=== PATIENT | female | born 1940 | race Caucasian/White ===

== ENCOUNTER → 2017-05-09 | Outpatient (CLI) | payer MEDICARE ==
--- NOTE | 2017-05-09 16:27 | REPMRS ---
Patient History The patient states she has not had a clinical breast exam in over a year. Patient is postmenopausal.Patient has had a 10-15 pound weight loss. Family history of ovarian cancer in paternal aunt at age 60, unknown cancer in paternal cousin at age 25, and breast cancer in daughter at age 45. Digital Mammo Screening Bilat: May 09, 2017 - Exam #: [id number] Bilateral CC and MLO view(s) were taken. Technologist: Didi Laureano Technologist Prior study comparison: May 11, 2016, bilateral digital mammo screening bilat performed at [facility]. July 23, 2014, bilateral bilat screen digital mammo, performed at [facility] ([facility]). FINDINGS: There are scattered fibroglandular densities. There has been no change in the appearance of the mammogram from the prior studies. There is a mild amount of residual fibroglandular tissue which is fairly symmetric. There is no interval development of dominant mass, architectural distortion, or clustered microcalcification suggestive of malignancy. ASSESSMENT: BI-RADS/ACR category 1 mammogram. Negative. Recommendation Routine screening mammogram in 1 year (for women over age 40). This mammogram was interpreted with the aid of an FDA-approved computer-aided dectection system. Electronically Signed By: Beau Ruiz MD 05/09/17 [id number]
== END ==
LOC: M RAD 14:39
PROVIDERS: ATTEND Nurse Practitioner Adult Health
DX: Z12.31 Encounter for screening mammogram for malignant neoplasm of breast (principal)

== ENCOUNTER → 2018-01-02 | Outpatient (REF) | payer MEDICARE ==
[2018-01-02 16:26] LABS: VITAMIN B12 LEVEL 323 PG/ML (247-911)
== END ==
LOC: M LAB REF 15:23
DX: R41.81 Age-related cognitive decline (principal)
CPT/HCPCS: 82607

== ENCOUNTER → 2018-06-06 | Outpatient (CLI) | payer MEDICARE | LOC: M RAD 07:59 | DX: Z12.31 Encounter for screening mammogram for malignant neoplasm of breast (principal) | CPT/HCPCS: 77067 ==

== ENCOUNTER 2018-09-11 08:38 | Emergency (ER) | payer MEDICARE ==
[2018-09-11 09:48] LABS: BEDSIDE GLUCOSE 76 MG/DL (83-110)
[2018-09-11 09:59] LABS: BASO % 0.3 % (0.0-1.0); EOS # 0.1 10^3/uL (0.0-0.50); EOS % 1.3 % (0.0-3.0); HEMATOCRIT 38.5 % (36.0-47.0); HEMOGLOBIN 12.7 g/dl (12.0-15.5); IMMATURE GRANULOCYTE % 0.3 % (0-3.0); LYMPH % 26.6 % (24.0-44.0); MEAN CORPUSCULAR HEMOGLOBIN 31.2 pg (27.0-33.0); MEAN CORPUSCULAR VOLUME 94.6 fl (80.0-96.0); MONO # 0.7 10^3/uL (0.0-0.8); MONO % 8.6 % (0.0-5.0); NEUTROPHILS # 4.8 10^3/uL (1.8-7.7); NEUTROPHILS % 62.9 % (36.0-66.0); PLATELET COUNT, AUTOMATED 242 10^3/uL (150-450); RED BLOOD COUNT 4.07 10^6/uL (4.00-5.40); RED CELL DISTRIBUTION WIDTH 13.3 % (11.5-14.5); WHITE BLOOD COUNT 7.6 10^3/uL (4.0-10.0)
[2018-09-11 10:11] LABS: INR 0.92; PROTHROMBIN TIME 12.5 SECONDS (12.1-14.4)
[2018-09-11 10:12] LABS: PARTIAL THROMBOPLASTIN TIME 31.7 SECONDS (25.4-37.6)
[2018-09-11 10:31] LABS: ANION GAP 4 MEQ/L (8-16); BLOOD UREA NITROGEN 9 MG/DL (7-18); CALCIUM LEVEL 8.5 MG/DL (8.8-10.2); CARBON DIOXIDE LEVEL 30 MEQ/L (21-32); CHLORIDE LEVEL 106 MEQ/L (98-107); CPK CREATINE PHOSPHOKINASE 125 U/L (26-192); CREATININE FOR GFR 0.47 MG/DL (0.55-1.30); GLOMERULAR FILTRATION RATE > 60.0 (>39); GLUCOSE, FASTING 82 MG/DL (70-100); MB/CK RELATIVE INDEX 1.92 (< OR =4); POTASSIUM SERUM 4.2 MEQ/L (3.5-5.1); SODIUM LEVEL 140 MEQ/L (136-145); TROPONIN I < 0.02 NG/ML (< 0.10)
[2018-09-11 11:09] LABS: GOLD SPEC TUBE RECIEVED
== END 2018-09-11 10:24 | disposition short-term general hospital (02) ==
LOC: M ED 08:38
DX: I63.9 Cerebral infarction, unspecified (principal); R27.0 Ataxia, unspecified; I10 Essential (primary) hypertension; K21.9 Gastro-esophageal reflux disease without esophagitis; Z79.899 Other long term (current) drug therapy
CPT/HCPCS: 71045

== ENCOUNTER 2019-01-24 13:44 | Day surgery (SDC) | payer MEDICARE ==
[~2019-01-24] VITALS: Ht 152.4 cm; Wt 71.7 kg
[~2019-01-24 13:44] MED LIST: ASPI81TA85 PO; ATOR40TA75 PO; DONE5TAB64 PO; DONEPEZIL PO; LEVO50TA5 PO; LISI-542 PO; OMEP20CA3 PO; SIMV40TA2 PO; VITMTA PO
[2019-01-24] MEDS ORDERED: LIDOCAINE VISCOUS 2% SOLN 15ML UDC As Ordered ONE (14:15)
[2019-01-24] MEDS ORDERED: MIDAZOLAM INJ 2 MG/2 ML VIAL (J2250) As Ordered ONE (14:56)
[2019-01-24 16:04] VITALS: BP 103/75
--- NOTE | 2019-01-24 22:35 | T-ECHO ---
DATE OF PROCEDURE: 01/24/2019 REFERRING PHYSICIAN: Nan Camarillo MD PREPROCEDURE DIAGNOSIS: Cryptogenic stroke. POSTPROCEDURE DIAGNOSIS: Cryptogenic stroke, patent foramen ovale. FINDINGS: Patent foramen ovale. PROCEDURE: Transesophageal echocardiogram with bubble study. SURGEON: Constantino Muniz MD AIRLINE LOUNGE RECEPTIONIST: None. CONSCIOUS SEDATION: IV conscious sedation: Midazolam 4 mg IV COMPLICATIONS: None. PROCEDURE DESCRIPTION: Rhythm was sinus. The patient received viscus lidocaine to gargle and then swallow. She received a total of 4 mg of Midazolam IV for conscious sedation. Esophageal intubation was accomplished without difficulty using a [employer]'s 3D transesophageal echocardiogram probe. The region of the intra-atrial septum was anatomically suspicious for presence of a patent foramen ovale. No color flow Doppler was seen traversing the atrial septum. No intra-atrial septal aneurysm. A total of three bubble studies was performed. The first bubble study was performed using 1 mL of the patient's own blood mixed with a mL of air and 8 mL of injectable saline. The other two bubbles studies that followed were performed with 9 mL of injectable normal saline and 1 mL of air. Each of the bubble studies was performed by swishing the contents of one 10 mL into another 10 mL syringe interconnected by a three-way stopcock to create bubbles back and forth. With each of the bubble studies Valsalva maneuver release was performed. On the third bubble study, I also had the patient cough several times. The third bubble study, during coughing was able to demonstrate abrupt opening of the patent foramen ovale with a mild to moderate amount of saline bubble contrast to shunt transiently from the right atrium to the left atrium via the patent foramen ovale (PFO). Atrial connections to the left atrium pulmonary veins was anatomically normal. No mass or thrombi were seen within the atria or their appendages. The left and right ventricles appeared normal in size and systolic function. Left ventricle ejection fraction was 65% by visual estimate. No regional wall motion abnormalities of the left ventricle. No pericardial effusion. The tricuspid, pulmonic and mitral valves were structurally and functionally normal. Mild mitral regurgitation was present and within normal limits. Aortic valve was three-cuspid and displayed mild focal thickening and focal calcific deposits. No aortic regurgitation. Distal aortic arch and descending thoracic aorta showed mild atherosclerotic plaque/atheroma. CONCLUSIONS: 1. Small patent foramen ovale with demonstration of mild to moderate bubble contrast shunting from right atrium to left atrium via the PFO during cough maneuver. 2. Normal left ventricle size and systolic function. 3. No masses or thrombi within the atria or their appendages. 4. Mild aortic valve sclerosis of a three-cuspid aortic valve. No aortic regurgitation. 5. Mild atherosclerosis/atheroma involving the distal aortic arch and descending thoracic aorta. RECOMMENDATIONS: Consider closure of the PFO with a PFO closure device. Further management to be decided by this patient's attending tire changer aircraft, Dr. Mauricio Reis.
== END 2019-01-24 16:07 | disposition home or self-care (01) ==
LOC: M SDC 13:44
PROVIDERS: ATTEND Internal Medicine Cardiovascular Disease
DX: I63.9 Cerebral infarction, unspecified (principal); R94.31 Abnormal electrocardiogram [ECG] [EKG]; I10 Essential (primary) hypertension; R01.1 Cardiac murmur, unspecified; E78.5 Hyperlipidemia, unspecified; K21.9 Gastro-esophageal reflux disease without esophagitis; M54.5 Low back pain; I25.2 Old myocardial infarction; E66.9 Obesity, unspecified; E03.9 Hypothyroidism, unspecified; Z79.82 Long term (current) use of aspirin; Z79.899 Other long term (current) drug therapy
CPT/HCPCS: 93312; 93320; 93325; J2250

== ENCOUNTER 2019-07-11 16:14 | Emergency (ER) | payer MEDICARE ==
[~2019-07-11] VITALS: Ht 162.6 cm; Wt 73.5 kg
[~2019-07-11 16:14] MED LIST changes: -OMEP20CA3 PO; +OMEP20CA4 PO
[2019-07-11 16:53] LABS: BASO % 0.2 % (0.0-1.0); EOS # 0.1 10^3/uL (0.0-0.50); EOS % 1.1 % (0.0-3.0); HEMATOCRIT 37.5 % (36.0-47.0); HEMOGLOBIN 12.6 g/dl (12.0-15.5); MEAN CORPUSCULAR HEMOGLOBIN 30.9 pg (27.0-33.0); MEAN CORPUSCULAR HGB CONC 33.6 g/dl (32.0-36.5); MEAN CORPUSCULAR VOLUME 91.9 fl (80.0-96.0); MONO # 0.7 10^3/uL (0.0-0.8); MONO % 7.2 % (0.0-5.0); NEUTROPHILS # 7.3 10^3/uL (1.8-7.7); NEUTROPHILS % 71.2 % (36.0-66.0); PLATELET COUNT, AUTOMATED 228 10^3/uL (150-450); RED BLOOD COUNT 4.08 10^6/uL (4.00-5.40); WHITE BLOOD COUNT 10.2 10^3/uL (4.0-10.0)
[2019-07-11 17:01] LABS: INR 1.07; PROTHROMBIN TIME 13.6 SECONDS (11.8-14.0)
[2019-07-11 17:02] LABS: PARTIAL THROMBOPLASTIN TIME 35.2 SECONDS (25.0-38.4)
[2019-07-11] MEDS ORDERED: XARE10TA PO (17:05)
[2019-07-11 17:18] LABS: BLOOD UREA NITROGEN 13 MG/DL (7-18); CALCIUM LEVEL 8.5 MG/DL (8.8-10.2); CARBON DIOXIDE LEVEL 30 MEQ/L (21-32); CHLORIDE LEVEL 103 MEQ/L (98-107); CK-MB VALUE MASS 1.8 NG/ML (<3.6); CPK CREATINE PHOSPHOKINASE 77 U/L (26-192); CREATININE FOR GFR 0.68 MG/DL (0.55-1.30); GLOMERULAR FILTRATION RATE > 60.0 (>39); GLUCOSE, FASTING 103 MG/DL (70-100); MB/CK RELATIVE INDEX 2.34 (< OR =4); POTASSIUM SERUM 3.8 MEQ/L (3.5-5.1); SODIUM LEVEL 139 MEQ/L (136-145); TROPONIN I < 0.02 NG/ML (< 0.10)
--- NOTE | 2019-07-11 17:34 | REP ---
REASON: Stroke like symptoms. COMPARISON: 09/11/2018. There is no significant change from the prior exam. The ventricles and sulci are stable. Scattered lucencies are seen throughout the deep cerebral white matter of the rojas radiata and centrum semi-ovale bilaterally. There are no extra axial collections. There is no shift in the midline structures. There is no evidence of an acute intracranial hemorrhagic or nonhemorrhagic event. There is no evidence of a skull fracture. The imaged paranasal sinuses and mastoid air cells are unchanged and remaining clear. IMPRESSION:No significant change from the prior exam. Chronic changes as described above. No evidence of acute disease. Electronically Signed by Geovany Navarrete DO 07/22/2019 10:06 A
--- NOTE | 2019-07-11 17:40 | REP ---
CHEST, PORTABLE: AP portable view of the chest is performed and compared to prior study of 09/11/2018. There is mild to moderate elevation of the right hemidiaphragm again noted. There is no acute infiltrate. Cardiac silhouette is upper limits or normal. There is mild calcification and tortuosity of the thoracic aorta. There is a hiatal hernia. Mediastinal silhouette is unchanged. IMPRESSION: No acute infiltrate. Electronically Signed by Beau Ruiz MD 07/13/2019 11:10 P
[2019-07-11 20:00] VITALS: BP 120/89
[2019-07-11 23:41] LABS: FREE T4 0.93 NG/DL (0.76-1.46)
--- NOTE | 2019-07-11 23:53 | ECGEPIP ---
[facility] - ED Test Date: 2019-07-11 Pat Name: LASHAWN MCDANIELS Department: Room: - Gender: Female Banquet Set Up Person: JOVITA : 1940 Requested By: CONSTANTINO Barrientos Order Number: [id number] Reading MD: Constantino Pollard Measurements Intervals [place] Rate: 115 P: [place]: 0 QRS: -1 QRSD: 89 T: 7 QT: 310 QTc: 430 Interpretive Statements Uncertain supraventricular rhythm, suspect atrial fibrillation with RVR LOW QRS VOLTAGE IN EXTREMITY LEADS Nonspecific T wave abnormality Electronically Signed on 07-11-2019 23:52:58 EDT by Constantino Pollard
== END 2019-07-11 20:13 | disposition home or self-care (01) ==
LOC: M ED 16:14
DX: G62.9 Polyneuropathy, unspecified (principal); I48.91 Unspecified atrial fibrillation; Z86.73 Personal history of transient ischemic attack (TIA), and cerebral infarction without residual deficits; E78.5 Hyperlipidemia, unspecified; Z79.899 Other long term (current) drug therapy

== ENCOUNTER → 2019-11-25 | Outpatient (REF) | payer MEDICARE ==
[~2019-11-25] MED LIST changes: +OMEP1CAP73 PO; -OMEP20CA4 PO; -SIMV40TA2 PO; +SIMV40TA20 PO; +XARE10TA PO
[2019-11-25 12:31] LABS: HEMATOCRIT 32.5 % (36.0-47.0); HEMOGLOBIN 10.6 g/dl (12.0-15.5); MEAN CORPUSCULAR HEMOGLOBIN 29.4 pg (27.0-33.0); MEAN CORPUSCULAR HGB CONC 32.6 g/dl (32.0-36.5); PLATELET COUNT, AUTOMATED 432 10^3/uL (150-450); RED BLOOD COUNT 3.61 10^6/uL (4.00-5.40)
[2019-11-25 13:42] LABS: ALBUMIN 2.2 GM/DL (3.2-5.2); ALT/SGPT 39 U/L (12-78); BILIRUBIN,TOTAL 0.6 MG/DL (0.2-1.0); BLOOD UREA NITROGEN 9 MG/DL (7-18); CALCIUM LEVEL 8.6 MG/DL (8.8-10.2); CARBON DIOXIDE LEVEL 32 MEQ/L (21-32); CHLORIDE LEVEL 97 MEQ/L (98-107); CREATININE FOR GFR 0.49 MG/DL (0.55-1.30); GLOMERULAR FILTRATION RATE > 60.0 (>39); GLUCOSE, FASTING 85 MG/DL (70-100); POTASSIUM SERUM 3.5 MEQ/L (3.5-5.1); SODIUM LEVEL 135 MEQ/L (136-145); TOTAL PROTEIN 6.2 GM/DL (6.4-8.2)
== END ==
LOC: M SFHCPLAZ 09:12
PROVIDERS: ATTEND Nurse Practitioner Adult Health
DX: R19.7 Diarrhea, unspecified (principal); E03.9 Hypothyroidism, unspecified
CPT/HCPCS: 36415; 80053; 84443; 85027; G0463

== ENCOUNTER → 2019-11-26 | Outpatient (REF) | payer MEDICARE ==
[~2019-11-26] MED LIST changes: +OMEP-172 PO; -OMEP1CAP73 PO
== END ==
LOC: M SFHCPLAZ 17:28
PROVIDERS: ATTEND Nurse Practitioner Adult Health
DX: R19.7 Diarrhea, unspecified (principal)

== ENCOUNTER 2020-03-16 10:54 | Inpatient (IN) | payer MEDICARE ==
[~2020-03-16] VITALS: Ht 157.5 cm; Wt 71.7 kg
[~2020-03-16 10:54] MED LIST changes: -OMEP-172 PO; +OMEP1CAP73 PO
[2020-03-16] MEDS ORDERED: SERT50TA29 PO (11:44)
[2020-03-16] MEDS ORDERED: ELIQ5TAB PO (11:44)
[2020-03-16] MEDS ORDERED: ATEN25TA PO (11:44)
--- NOTE | 2020-03-16 12:00 | REP ---
CT study of the cervical spine without contrast: History: Injury in a fall. Technique: Helical scanning is acquired and overlapping 2 mm high resolution axial images were generated and reviewed at bone and soft tissue window settings. Coronal and sagittal multiplanar re-formations images are generated. CT findings: There is no evidence of cervical spine element fracture. No skull base fracture is seen. Cervical vertebral body heights are preserved. Alignment is normal. Facet joints are normally aligned bilaterally at each cervical level on multiplanar re-formations images. There is no evidence of intraspinal or paraspinal hematoma. No extra vertebral abnormality is seen. There is straightening of the normal cervical lordosis. Degenerative disc changes are noted most pronounced at C5-6 and C6-7 but also to a lesser degree at C4-5 and C3-4. There is some degenerative disc calcification at these levels. Mild osteoarthritic facet hypertrophy and joint space narrowing is seen bilaterally in the cervical facet joints. There is a dextroconvex curvature. Impression: Degenerative spondylosis changes. Straightening and dextroconvex curvature noted. Otherwise negative CT study of the cervical spine without contrast. No fracture seen. Electronically Signed by Ramy Mcneal MD 03/16/2020 11:52 A
--- NOTE | 2020-03-16 12:43 | REP ---
CT BRAIN WITHOUT CONTRAST: HISTORY: Injury in a fall. COMPARISON STUDY: July 11, 2019. FINDINGS: Digital preliminary cotton weigher operator radiographs are unremarkable. Bone window settings demonstrate an intact bony calvarium. Visualized paranasal sinuses are clear. No intraorbital abnormality is appreciated. On soft tissue window settings, there is mild to moderate generalized volume loss again noted. There is evidence of an old right cerebellar infarct superiorly unchanged. No acute cortical infarction is seen. There is no evidence of intracranial hemorrhage. No mass, extra-axial fluid collection or midline shift is seen. IMPRESSION: No acute intracranial abnormality. Generalized volume loss. 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 Otherwise negative. Electronically Signed by Ramy Mcneal MD 03/16/2020 01:17 P
[2020-03-16 12:57] LABS: HEMATOCRIT 38.6 % (36.0-47.0); HEMOGLOBIN 12.6 g/dl (12.0-15.5); MEAN CORPUSCULAR HEMOGLOBIN 27.1 pg (27.0-33.0); MEAN CORPUSCULAR HGB CONC 32.6 g/dl (32.0-36.5); PLATELET COUNT, AUTOMATED 437 10^3/uL (150-450); RED BLOOD COUNT 4.65 10^6/uL (4.00-5.40); WHITE BLOOD COUNT 24.1 10^3/uL (4.0-10.0)
[2020-03-16 13:21] LABS: BLOOD UREA NITROGEN 15 MG/DL (7-18); CALCIUM LEVEL 8.6 MG/DL (8.8-10.2); CARBON DIOXIDE LEVEL 25 MEQ/L (21-32); CHLORIDE LEVEL 96 MEQ/L (98-107); CREATININE FOR GFR 0.39 MG/DL (0.55-1.30); GLOMERULAR FILTRATION RATE > 60.0 (>39); GLUCOSE, FASTING 100 MG/DL (70-100); POTASSIUM SERUM 2.9 MEQ/L (3.5-5.1); SODIUM LEVEL 129 MEQ/L (136-145)
[2020-03-16] MEDS ORDERED: POTASSIUM CHLORIDE 10 MEQ SR TABLET PO ONE ×2 (13:30→16:45)
[2020-03-16] MEDS ORDERED: NS 500 ML IV ONE (13:45)
[2020-03-16] MEDS: KCL 10MEQ/100ML SWI (KRUN) 10 MEQ in IV 1 EA IV SCH ×3 (13:46→17:00)
[2020-03-16 13:57] LABS: ALBUMIN 2.2 GM/DL (3.2-5.2); ALT/SGPT 30 U/L (12-78); BILIRUBIN,DIRECT 0.4 MG/DL (0.0-0.2); BILIRUBIN,TOTAL 0.7 MG/DL (0.2-1.0); FREE T4 1.27 NG/DL (0.76-1.46); TOTAL PROTEIN 7.5 GM/DL (6.4-8.2)
[2020-03-16] MEDS ORDERED: ISOVUE-370 76% 100ML VIAL As Ordered ONE (14:26)
[2020-03-16] MEDS ORDERED: PIPERACILLIN/TAZOBACTAM SOD 3.375 GM in D5W MINI-BAG PLUS 50 ML IV ONE (15:15)
--- NOTE | 2020-03-16 15:18 | REP ---
CHEST, SINGLE VIEW: Single view of the chest is performed and compared to a prior study of 07/11/2019. No acute infiltrate is seen. There is again elevation of the right hemidiaphragm. Patient is rotated toward the right. Cardiac silhouette is prominent. Visualized osseous structures demonstrate no definite fracture. IMPRESSION: No evidence of acute pulmonary disease. Electronically Signed by Beau Ruiz MD 03/16/2020 03:24 P
[2020-03-16] MEDS ORDERED: DONE10TA90 PO (15:25)
[2020-03-16] MEDS ORDERED: NS 1,000 ML IV ONE (15:30)
[2020-03-16 15:36] LABS: NT-PRO BNP 2523 PG/ML (<450)
[2020-03-16] MEDS ORDERED: ONDANSETRON 4MG/2ML VIAL IV PRN (16:00)
[2020-03-16] MEDS ORDERED: MORPHINE 2 MG/ML 1ML VIAL (J2270) IV PRN ×2 (16:00)
[2020-03-16] MEDS ORDERED: LR 1,000 ML IV SCH (16:00)
[2020-03-16] MEDS ORDERED: metroNIDAZOLE 500 MG in IV 1 EA IV ONE (16:30)
[2020-03-16] MEDS ORDERED: CIPROFLOXACIN 400 MG in IV 1 EA IV ONE (16:30)
--- NOTE | 2020-03-16 16:30 | REP ---
CT ABDOMEN/PELVIS WITH IV CONTRAST: TECHNIQUE: Axial contrast enhanced images from the lung bases to the pubic symphysis using 100 mL Isovue-370 intravenous contrast material with multiplanar reformations. In the visualized lung bases, there are dependent atelectatic changes. There is a small left pleural effusion. There is a moderate to large hiatal hernia. The liver appears unremarkable. Gallbladder is moderately distended with no definite intraluminal calculus. Spleen is normal in size with no intrinsic abnormality. There is mild adrenal gland thickening bilaterally. Pancreas demonstrates no mass. There are cysts of each kidney with no hydronephrosis. There is no abdominal aortic aneurysm. There is no adenopathy. Scattered free air is seen in the upper abdomen and in the pelvis. There is mild free fluid in the pelvis. Diffuse colonic diverticulosis is noted. There is diffuse thickening of the sigmoid colon, compatible with diverticulitis. There is adjacent phlegmonous change with ill-defined air and fluid in the right pelvis extending superiorly. There is a right lower quadrant air-fluid collection, consistent with an abscess having a diameter of approximately 9.5 cm. Large calcified mass anteriorly in the pelvis measures about 5 cm in diameter and probably represents a calcified uterine fibroid. Metallic prosthesis is noted of the right hip. There are degenerative changes of the lumbar spine. IMPRESSION: Small left pleural effusion. Scattered free air in the abdomen and pelvis. There appears to be perforated diverticulitis of the sigmoid with adjacent extraluminal air and fluid and phlegmonous change in the right pelvis extending superiorly. There is a right lower quadrant abscess measuring 9.5 cm in diameter. Findings were conveyed to Dr. Cunningham in the ER at the time of the exam. Moderate to large hiatal hernia. Moderately distended gallbladder. Calcified uterine fibroid. Electronically Signed by Beau Ruiz MD 03/17/2020 09:34 A
--- NOTE | 2020-03-16 17:32 | HPEPDOC ---
[facility] Medical History & Physical Date of Admission Mar 16, 2020 Date of Service: Mar 16, 2020 Primary Care Physician: Lynette Wilcox Attending Physician: NATI PEREZ MD History and Physical PRIMARY CARE PROVIDER: Lynette Wilcox ATTENDING: Dr. Nati Perez CHIEF COMPLAINT: LOC HISTORY OF PRESENT ILLNESS: Patient is a 80 year old female presenting with chief complaint of loss of consciousness. Patient was found by her daughter this morning after finding her on the ground. When she found her she was conscious and did not remember what happened but thinks she did lose consciousness and hit her head on the ground. She states she has had loose stools since last , but thinks there have only been 2/day with decreased PO intake. In the ED she was found to be tachycardic with 2+ pitting edema, WBC count of 24, hyponatremia, hypokalemia, lactic acidosis, and an elevated BNP. CT head, C- spine, CXR were negative, with CTabd/pelvis demonstrating microperforation and RLQ abdominal abscess. Patient received 1x zosyn and 1.5 liters of fluid resuscitation. 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 FAMILY HISTORY: Patient does not recall. ALLERGIES: Please see below. REVIEW OF SYSTEMS: GENERAL: Denies fevers, chills, recent unexpected weight change, night sweats, hemoptysis HEENT: Denies headache, dizziness, vision changes, hearing loss, sore throat CARDIOVASCULAR: Denies chest pain, palpitations, orthopnea RESPIRATORY: Denies shortness of breath, wheezing, cough GASTROINTESTINAL: denies nausea, vomiting, abdominal pain, constipation, bloody stool. Admits to loose stool since last . GENITOURINARY: Denies dysuria,urinary urgency, hematuria. MUSCULOSKELETAL: Denies muscle/joint pain, weakness, stiffness NEUROLOGICAL: Denies any numbness/tingling, focal weakness, or syncope HOME MEDICATIONS: Please see below. PHYSICAL EXAMINATION: Vitals: (see below) General: Pale appearing female in no acute distress, laying comfortably in bed. HEENT: Normocephalic, atraumatic. EOMI. No scleral icterus. dry mucous membranes. No pharyngeal erythema or uvular deviation. Neck: No JVD, lymphadenopathy, or thyromegaly. Cardiac: RRR, Normal S1 and S2, No murmurs, gallops, rubs. Pulm: Clear to auscultation b/l. Symmetric thorax. No wheezing, crackles, rhonchi Abd: Bowel Sounds present. Abdomen is soft, non-tender, non-distended. No guarding, rebound tenderness, or rigidity. No hepatosplenomegaly. No masses or eccymosis. Ext: 2+ pitting edema up to knees in bilateral LE, no cyanosis Vascular: Capillary refill ~3seconds Neuro: No focal neuro deficits. AOx3 LABORATORY DATA: See below. IMAGIN03/16/[address]: No acute intracranial abnormality. Generalized volume loss. 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 Otherwise negative. 03/16/[address]: Degenerative spondylosis changes. Straightening and dextroconvex curvature noted. Otherwise negative CT study of the cervical spine without contrast. No fracture seen. 03/16/2020 CXR: No evidence of acute pulmonary disease 03/16/2020 CT abd/pelvis w/ contrast: Small left pleural effusion. Scattered free air in the abdomen and pelvis. There appears to be perforated diverticulitis of the sigmoid with adjacent extraluminal air and fluid and phlegmonous change in the right pelvis extending superiorly. There is a right lower quadrant abscess measuring 9.5 cm in diameter. Findings were conveyed to Dr. Cunningham in the ER at the time of the exam. Moderate to large hiatal hernia. Moderately distended gallbladder. Calcified uterine fibroid. MICROBIOLOGY: Please see below. ASSESSMENT/PLAN: #. Sepsis from RLQ abscess likely 2/2 perforated diverticulitis -Cipro/flagyl for diverticulitis. IR drainage to take place tomorrow morning. General surgery is aware of patient should the patient decompensate. Initiating gentle IVF hydration as patient has 2+ pitting edema with elevated BNP. Lactic acid elevated at 2.4, will continue with gentle IVF. #. Bilateral lower extremity edema -Echo/bubble study in 2019 showing LVEF of 65% and small PFO. Mild atherosclerosis/atheroma involving distal aortic arch and descending thoracic aorta. -Repeat urgent echo pending -Patient seems intravascularly depleted, will continue with IVF @75ml/hr after 1.5L in ED #. Hypovolemic hypotonic hyponatremia - Likely secondary to decreased PO intake, dehydration since this past #. Hypokalemia - Likely secondary to dehydration and decreased PO intake. #. LOC -We suspect this is secondary to dehydration from her loose stool, she is showing no neuro deficits in the room and is alert/oriented but is clinically dehydrated #. Afib -Holding eliquis for procedure tomorrow morning, will resume after. - Continue atenolol for rate control #. Hypothyroidism -Continue synthroid #. GERD -Patient is on IV pantoprazole #. Depression/anxiety -Holding home sertraline until after procedure #. Hypercholesterolemia - Holding home statin #. Dementia -Holding home donepezil -DVT prophy: holding for procedure, teds/seqs Attending attestation: I evaluated and examined the patient in person; I discussed the care with Resident in detail and agree with the plan above. Vital Signs Vital Signs Date Time Temp Pulse Resp B/P (MAP) Pulse Ox O2 Delivery O2 Flow Rate FiO2 03/16/20 16:00 122 18 103/57 (72) 95 Room Air 03/16/20 15:01 96.8 Laboratory Data Labs 24H Laboratory Tests 2 03/16/20 12:44: Nucleated Red Blood Cells % (auto) 0.0, Anion Gap 8, Glomerular Filtration Rate > 60.0, Calcium Level 8.6L, Total Bilirubin 0.7, Direct Bilirubin 0.4H, Aspartate Amino Transf (AST/SGOT) 32, Alanine Aminotransferase (ALT/SGPT) 30, Alkaline Phosphatase 123H, C-Reactive Protein, Quantitative 16.70H, AM-Ykc-G-Type Natriuretic Peptide 2523H, Total Protein 7.5, Albumin 2.2L, Albumin/Globulin Ratio 0.42L, Thyroid Stimulating Hormone (TSH) 5.310H, Free Thyroxine 1.27 03/16/20 15:37: Lactic Acid Level 2.4*H CBC/BMP Laboratory Tests 03/16/20 12:44 Microbiology Microbiology 03/16/20 Blood Culture, Received Pending 03/16/20 Blood Culture, Received Pending Home Medications Scheduled Apixaban (Eliquis) 5 Mg Tablet, 5 MG PO BID Atenolol (Atenolol) 25 Mg Tablet, 25 MG PO DAILY Atorvastatin Calcium (Atorvastatin Calcium) 40 Mg Tab, 40 MG PO QHS Ciprofloxacin HCl (Ciprofloxacin HCl) 500 Mg Tablet, 500 MG PO BID FILLED 03/22/20 FOR 10 DAYS Donepezil HCl (Donepezil HCl) 10 Mg Tablet, 10 MG PO QHS Furosemide (Lasix) 40 Mg Tablet, 40 MG PO DAILY Levothyroxine Sodium (Levothyroxine Sodium) 50 Mcg Tab, 50 MCG PO DAILY Metronidazole (Flagyl) 500 Mg Tablet, 500 MG PO Q8H FILLED 03/22/20 FOR 10 DAYS Multivitamins (Thera M Plus Tablet) 1 Tab Tab, 1 TAB PO DAILY Omeprazole (Omeprazole) 20 Mg Cap, 20 MG PO BID Sertraline HCl (Sertraline HCl) 50 Mg Tablet, 50 MG PO DAILY Allergies Coded Allergies: No Known Allergies (Unverified , 03/23/20) A-FIB/CHADSVASC A-FIB History Current/History of A-Fib/PAF?: No GME ATTESTATION GME ATTESTATION My faculty preceptor for this patient encounter was physically present during the encounter and was fully available. All aspects of the patient interview, examination, medical decision making process, and medical care plan development were reviewed and approved by the faculty preceptor. The faculty preceptor is aware and concurs with the plan as stated in the body of this note and will attest to such by his/her cosignature. OVIDIO HSU DO Mar 16, 2020 17:31 NATI PEREZ MD March 23, 2020 19:03
[2020-03-16 19:06] LABS: INR 1.6; PROTHROMBIN TIME 18.7 SECONDS (11.8-14.0)
[2020-03-16 19:50] VITALS: BP 113/74
[2020-03-17] VITALS: BP 102/68
[2020-03-17 04:00] VITALS: BP 106/77
[2020-03-17] MEDS: metroNIDAZOLE 500 MG in IV 1 EA IV SCH ×3 (04:51→20:49)
[2020-03-17 05:34] LABS: HEMATOCRIT 29.6 % (36.0-47.0); MEAN CORPUSCULAR HGB CONC 33.1 g/dl (32.0-36.5); MEAN CORPUSCULAR VOLUME 81.5 fl (80.0-96.0); PLATELET COUNT, AUTOMATED 405 10^3/uL (150-450); RED BLOOD COUNT 3.63 10^6/uL (4.00-5.40); WHITE BLOOD COUNT 19.9 10^3/uL (4.0-10.0)
[2020-03-17 05:39] LABS: HEMOGLOBIN 9.8 g/dl (12.0-15.5)
[2020-03-17 05:53] LABS: LYMPHOCYTES 8 % (16-44); MONOCYTES 7 % (0-5); NEUTROPHILS 85 % (28-66); PLATELET ESTIMATE NORMAL (NORMAL)
[2020-03-17 05:55] LABS: ANISOCYTOSIS 1+
[2020-03-17 05:57] LABS: ALBUMIN 1.7 GM/DL (3.2-5.2); ALT/SGPT 22 U/L (12-78); BILIRUBIN,TOTAL 0.5 MG/DL (0.2-1.0); BLOOD UREA NITROGEN 11 MG/DL (7-18); CALCIUM LEVEL 7.7 MG/DL (8.8-10.2); CARBON DIOXIDE LEVEL 24 MEQ/L (21-32); CHLORIDE LEVEL 102 MEQ/L (98-107); CREATININE FOR GFR 0.26 MG/DL (0.55-1.30); GLOMERULAR FILTRATION RATE > 60.0 (>39); GLUCOSE, FASTING 67 MG/DL (70-100); POTASSIUM SERUM 4.3 MEQ/L (3.5-5.1); SODIUM LEVEL 133 MEQ/L (136-145); TOTAL PROTEIN 5.2 GM/DL (6.4-8.2)
[2020-03-17] MEDS: LEVOTHYROXINE 50MCG TABLET (0.05MG) PO SCH (05:57)
[2020-03-17] MEDS: CIPROFLOXACIN 400 MG in IV 1 EA IV SCH ×2 (05:57→17:20)
[2020-03-17 08:00] VITALS: BP 100/70
[2020-03-17] MEDS: atenoloL 25 MG TAB PO SCH (09:17)
[2020-03-17] MEDS: PANTOPRAZOLE 40MG VIAL (C9113 PER 1) IV SCH (09:17)
[2020-03-17] MEDS: ACETAMINOPHEN TAB 650MG DOSE (2X325MG) PO PRN ×2 (09:18→20:49)
[2020-03-17] MEDS ORDERED: SODIUM BICARBONATE 8.4% INJ 50MEQ 50 ML VIAL As Ordered ONE (11:13)
[2020-03-17] MEDS ORDERED: LIDOCAINE 1% MDV 20ML VIAL As Ordered ONE (11:13)
[2020-03-17 12:00] VITALS: BP 133/88
--- NOTE | 2020-03-17 13:50 | REP ---
Ultrasound-guided abscess drain The procedure was performed by ALYSON Torres, under the direct supervision of Dr. Ruiz. The risks and benefits of the procedure were explained to the patient and informed consent was obtained both verbally and written. Directly prior to the start of the procedure, a formal timeout was completed in the procedure room. Under ultrasound guidance, the right lower quadrant abscess was localized and skin was marked. The skin was then prepped and draped in a sterile fashion. 6 ml of buffered lidocaine was used as a local anesthetic. Using ultrasound guidance, an 10-[place] multi side-hole the pigtail catheter was inserted using trocar technique. 120 mL of pus fluid was withdrawn and sent to the lab for further analysis. A drainage bag was hooked up to the end of the catheter, and the patient was discharged from the department. Reviewed by ALYSON Artis 03/17/2020 01:35 P Electronically Signed by Beau Ruiz MD 03/17/2020 01:42 P
[2020-03-17 16:00] VITALS: BP 115/67
--- NOTE | 2020-03-17 16:18 | IPNPDOC ---
Date Seen The patient was seen on 03/17/20. Progress Note SUBJECTIVE: 80-year-old female with past medical history of CVA, hypothyroidism, hyperlipidemia and GERD was admitted for right lower quadrant abscess secondary to perforated diverticulitis. Patient underwent ultrasound guided drain placement by interventional radiology earlier today, seen postprocedure. Patient denies any issues overnight, currently experiencing mild abdominal pain at drain site, no other complaints. Patient denies any shortness of breath, chest pain, nausea, vomiting, diarrhea or constipation. 10 point review of system is negative except for above PHYSICAL EXAMINATION: VITAL SIGNS: Please see below. GENERAL: No distress HEENT: Normocephalic, atraumatic, moist mucous membranes NECK: Supple CARDIOVASCULAR EXAMINATION: S1, S2 RESPIRATORY EXAMINATION: Clear to auscultation, no wheezing ABDOMINAL EXAMINATION: Soft, mild right lower quadrant and left lower quadrant t enderness, nondistended, positive bowel sounds, abscess drain with brown fluid, foul-smelling, concerning for stool EXTREMITIES: Bilateral lower extremity pitting edema SKIN: No rash NEUROLOGICAL EXAMINATION: no focal deficits PSYCHIATRIC EXAMINATION: Calm and cooperative LABORATORY DATA, IMAGING STUDIES, MICROBIOLOGY: Please see below. ASSESSMENT AND PLAN: 80-year-old female with multiple medical comorbidities, was admitted for abdominal abscess secondary to perforated diverticulitis PROBLEMS: 1. Abdominal abscess: Secondary to perforated diverticulitis, ultrasound-guided drain placement by interventional radiology today, cultures pending, continue empiric antibiotics, fluid from abscess drain is concerning for stool, if output is high, we'll consider general surgery consultation. 2.. Hypothyroidism: Continue levothyroxine 3. GERD: Protonix 4. A. fib: Restart Eliquis, continue Atenolol for rate control DVT prophylaxis: Eliquis GI prophylaxis: PPI VS, I&O, 24H, Fishbone Vital Signs/I&O Vital Signs Date Time Temp Pulse Resp B/P (MAP) Pulse Ox O2 Delivery O2 Flow Rate FiO2 03/17/20 12:00 97.4 100 16 133/88 (103) 96 Room Air I&O- Last 24 Hours up to 6 AM 03/17/20 06:00 Intake Total 2955 ml Output Total 400 ml Balance 2555 ml Laboratory Data 24H LABS Laboratory Tests 2 03/16/20 17:42: Urine Color YELLOW, Urine Appearance CLEAR, Urine pH 6.0, Urine Specific [place] >1.060H, Urine Protein NEGATIVE, Urine Glucose (UA) NEGATIVE, Urine Ketones TRACEH, Urine Blood NEGATIVE, Urine Nitrite NEGATIVE, Urine Bilirubin NEGATIVE, Urine Urobilinogen 4.0H, Urine Leukocyte Esterase NEGATIVE, Urine WBC (Auto) 0, Urine RBC (Auto) 0, Urine Hyaline Casts (Auto) 0, Urine Bacteria (Auto) NEGATIVE, Urine Squamous Epithelial Cells 0, Urine Sperm (Auto) 03/16/20 18:36: Prothrombin Time 18.7H, Prothromb Time International Ratio 1.60, Activated Partial Thromboplast Time 39.0H, Osmolality 268L 03/16/20 18:45: Lactic Acid Followup at 4 Hours 1.5 03/16/20 20:20: Methicillin-Resist S.aureus DNA PCR NOT DETECTED 03/17/20 05:16: Neutrophils (%) (Auto) , Nucleated Red Blood Cells % (auto) 0.0, Neutrophils 85H, Lymphocytes (Manual) 8L, Monocytes (Manual) 7H, Anisocytosis 1+, Acanthocytes 1+, Platelet Estimate NORMAL, Anion Gap 7L, Glomerular Filtration Rate > 60.0, Calcium Level 7.7L, Total Bilirubin 0.5, Aspartate Amino Transf (AST/SGOT) 22, Alanine Aminotransferase (ALT/SGPT) 22, Alkaline Phosphatase 88, C-Reactive Protein, Quantitative 10.70H, Total Protein 5.2#L, Albumin 1.7#L, Albumin/Globulin Ratio 0.49L CBC/BMP Laboratory Tests 03/17/20 05:16 Microbiology Microbiology 03/17/20 Gram Stain - Final, Resulted 03/17/20 Abscess Culture, Resulted Pending 03/17/20 Anaerobic Culture, Received Pending 03/16/20 Blood Culture - Preliminary, Resulted No growth after 24 hours . All specim... 03/16/20 Blood Culture - Preliminary, Resulted No growth after 24 hours . All specim... NATI OLIVER MD Mar 17, 2020 16:16
--- NOTE | 2020-03-17 16:35 | ECGEPIP ---
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
[2020-03-17 20:00] VITALS: BP 116/72
[2020-03-17] MEDS: APIXABAN 5 MG TAB (ELIQUIS) PO SCH (20:49)
[2020-03-17] MEDS: ATORVASTATIN 20 MG TAB PO SCH (20:49)
[2020-03-18] VITALS: BP 115/79
[2020-03-18 04:00] VITALS: BP 118/85
[2020-03-18] MEDS: metroNIDAZOLE 500 MG in IV 1 EA IV SCH ×3 (04:00→21:37)
[2020-03-18] MEDS: CIPROFLOXACIN 400 MG in IV 1 EA IV SCH ×2 (06:45→17:55)
[2020-03-18] MEDS: LEVOTHYROXINE 50MCG TABLET (0.05MG) PO SCH (06:45)
[2020-03-18 08:00] VITALS: BP 99/72
--- NOTE | 2020-03-18 08:13 | ECHO ---
DATE OF STUDY: 03/17/2020 REFERRING PHYSICIAN: Dr. Denis Dee INDICATION: Edema. HEIGHT: 157 cm. WEIGHT: 65 kg. 2-D MEASUREMENTS: Aortic root: 2.8 cm Left atrium: 3.8 cm Aortic annulus: 2.1 cm Ventricular septum: 1.37 cm Posterior wall: 1.28 cm Left ventricle diastole: 4.0 cm Inferior vena cava: 2.0 cm with a marked reduction of respiratory variation suggestive of elevated central venous pressure DOPPLER MEASUREMENTS: No aortic stenosis No aortic regurgitation Aortic valve velocity: 119 cm/sec LVOT velocity: 69.8 cm/sec Mild mitral regurgitation No mitral stenosis Mitral E velocity: 97.7 cm/sec Mitral E deceleration: 168 ms Moderate tricuspid regurgitation Estimated right ventricular systolic pressure at least 4 mmHg assuming a right atrial pressure of at least 20 mmHg Trace pulmonic regurgitation Pulmonary acceleration time: 129 ms MITRAL ANNULAR TISSUE DOPPLER: E prime septal: 6.0 cm/sec E prime lateral: 11.6 cm/sec DESCRIPTION: The rhythm was atrial fibrillation with rapid ventricular rate. Image quality was fair. No pericardial effusion. This was a 2-D, M-mode, color flow Doppler and pulse wave Doppler examination and included mitral annular tissue Doppler. CONCLUSIONS: 1. Mild concentric left ventricular hypertrophy. Normal regional LV wall motion and wall thickening. Normal LV systolic function. LVEF 65% by visual estimate. At least some degree of LV diastolic function was present, but difficult to classify the grade of LV diastolic function in the setting of atrial fibrillation with rapid ventricular response 2. Suggestive of moderate elevation of estimated right ventricle systolic pressure (at least 40 mmHg) assuming right atrial pressure of at least 20 mmHg. Normal right ventricle size and systolic function. Inferior vena cava plethora with reduced respiratory variation suggestion of elevated central venous pressure of at least 20 mmHg. 3. Moderate aortic valve sclerosis with a 3-cuspid aortic valve. No aortic stenosis or regurgitation. 4. Moderate mitral annular calcification. Mild mitral regurgitation. No mitral stenosis. 5. Otherwise normal appearing echocardiogram Doppler findings.
[2020-03-18] MEDS: APIXABAN 5 MG TAB (ELIQUIS) PO SCH ×2 (09:18→21:37)
[2020-03-18] MEDS: PANTOPRAZOLE 40MG VIAL (C9113 PER 1) IV SCH (09:18)
[2020-03-18] MEDS: atenoloL 25 MG TAB PO SCH (09:18)
[2020-03-18 11:01] VITALS: BP 111/78
[2020-03-18 14:00] VITALS: BP 110/74
--- NOTE | 2020-03-18 18:15 | IPNPDOC ---
Text Note Date of Service The patient was seen on 03/18/20. NOTE SUBJECTIVE: 80-year-old female with past medical history of CVA, hypothyroidism, hyperlipidemia and GERD was admitted for right lower quadrant abscess secondary to perforated diverticulitis. Patient underwent ultrasound guided drain placement by interventional radiology yesterday. No acute events overnight, no new complaints. Patient denies any shortness of breath, chest pain, nausea, v omiting, diarrhea or constipation. PHYSICAL EXAMINATION: VITAL SIGNS: Please see below. GENERAL: No distress HEENT: Normocephalic, atraumatic, moist mucous membranes CARDIOVASCULAR EXAMINATION: Regular rate and irregular rhythm, normal S1, S2 RESPIRATORY EXAMINATION: Clear to auscultation, no wheezing ABDOMINAL EXAMINATION: Soft, mild right lower quadrant and left lower quadrant tenderness, nondistended, positive bowel sounds, abscess drain with brown fluid, foul-smelling, concerning for stool EXTREMITIES: Bilateral lower extremity pitting edema SKIN: No rash NEUROLOGICAL EXAMINATION: no focal deficits PSYCHIATRIC EXAMINATION: Calm and cooperative LABORATORY DATA, IMAGING STUDIES, MICROBIOLOGY: Please see below. ASSESSMENT AND PLAN: 80-year-old female with multiple medical comorbidities, was admitted for abdominal abscess secondary to perforated diverticulitis #. Abdominal abscess - Secondary to perforated diverticulitis, s/p IR drainage on 03/17, blood cultures negative after 48 hours, abscess cultures pending, initial gram stain showing many gram positive and gram negative rods. Continue empiric antibiotics, fluid from abscess drain is concerning for stool, but output is decreasing so far, if output increases we'll consider general surgery consultation. -Full liquids diet #. Hypothyroidism - Continue levothyroxine #. GERD - Protonix #. A. fib -Eliquis, continue Atenolol for rate control DVT prophylaxis: Eliquis GI prophylaxis: PPI Attending attestation: I evaluated and examined the patient in person; I discussed the care with Resident in detail and agree with the plan above. VS,Fishbone, I+O VS, Fishbone, I+O Vital Signs Date Time Temp Pulse Resp B/P (MAP) Pulse Ox O2 Delivery O2 Flow Rate FiO2 03/18/20 14:00 98.4 114 18 110/74 (86) 99 Room Air I&O- Last 24 Hours up to 6 AM 03/18/20 05:59 Intake Total 2500 ml Output Total 470 ml Balance 2030 ml GME ATTESTATION GME ATTESTATION My faculty preceptor for this patient encounter was physically present during the encounter and was fully available. All aspects of the patient interview, examination, medical decision making process, and medical care plan development were reviewed and approved by the faculty preceptor. The faculty preceptor is aware and concurs with the plan as stated in the body of this note and will attest to such by his/her cosignature. OVIDIO HSU DO Mar 18, 2020 18:15 NATI OLIVER MD March 23, 2020 19:23
[2020-03-18] MEDS: ATORVASTATIN 20 MG TAB PO SCH (21:37)
[2020-03-18 22:00] VITALS: BP 110/76
[2020-03-19] MEDS: metroNIDAZOLE 500 MG in IV 1 EA IV SCH ×3 (03:46→20:06)
[2020-03-19 06:00] VITALS: BP 107/75
[2020-03-19] MEDS: CIPROFLOXACIN 400 MG in IV 1 EA IV SCH ×2 (06:42→17:18)
[2020-03-19] MEDS: LEVOTHYROXINE 50MCG TABLET (0.05MG) PO SCH (06:42)
[2020-03-19] MEDS: PANTOPRAZOLE 40MG VIAL (C9113 PER 1) IV SCH (10:30)
[2020-03-19] MEDS: APIXABAN 5 MG TAB (ELIQUIS) PO SCH ×2 (10:30→20:06)
[2020-03-19] MEDS: atenoloL 25 MG TAB PO SCH (10:35)
[2020-03-19 12:09] LABS: HEMATOCRIT 29.5 % (36.0-47.0); HEMOGLOBIN 9.6 g/dl (12.0-15.5); MEAN CORPUSCULAR HEMOGLOBIN 26.9 pg (27.0-33.0); MEAN CORPUSCULAR HGB CONC 32.5 g/dl (32.0-36.5); MEAN CORPUSCULAR VOLUME 82.6 fl (80.0-96.0); PLATELET COUNT, AUTOMATED 404 10^3/uL (150-450); RED BLOOD COUNT 3.57 10^6/uL (4.00-5.40); WHITE BLOOD COUNT 22.3 10^3/uL (4.0-10.0)
[2020-03-19 12:54] LABS: BLOOD UREA NITROGEN 6 MG/DL (7-18); CALCIUM LEVEL 7.6 MG/DL (8.8-10.2); CARBON DIOXIDE LEVEL 24 MEQ/L (21-32); CHLORIDE LEVEL 98 MEQ/L (98-107); CREATININE FOR GFR 0.37 MG/DL (0.55-1.30); GLOMERULAR FILTRATION RATE > 60.0 (>39); GLUCOSE, FASTING 109 MG/DL (70-100); POTASSIUM SERUM 4.2 MEQ/L (3.5-5.1); SODIUM LEVEL 129 MEQ/L (136-145)
[2020-03-19 14:00] VITALS: BP 102/76
[2020-03-19] MEDS ORDERED: FUROSEMIDE 40MG/4ML VIAL (J1940) IV ONE (16:00)
--- NOTE | 2020-03-19 16:06 | ECGEPIP ---
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
[2020-03-19] MEDS: ATORVASTATIN 20 MG TAB PO SCH (20:06)
--- NOTE | 2020-03-19 20:17 | IPNPDOC ---
Text Note Date of Service The patient was seen on 03/19/20. NOTE SUBJECTIVE: 80-year-old female with past medical history of CVA, hypothyroidism, hyperlipidemia and GERD was admitted for right lower quadrant abscess secondary to perforated diverticulitis. No acute events overnight, no new complaints. Patient denies any shortness of breath, chest pain, nausea, vomiting, diarrhea or constipation. PHYSICAL EXAMINATION: VITAL SIGNS: Please see below. GENERAL: No distress HEENT: Normocephalic, atraumatic, moist mucous membranes CARDIOVASCULAR EXAMINATION: Regular rate and irregular rhythm, normal S1, S2 RESPIRATORY EXAMINATION: Clear to auscultation, no wheezing ABDOMINAL EXAMINATION: Soft, mild right lower quadrant and left lower quadrant tenderness, nondistended, positive bowel sounds, abscess drain with brown fluid, foul-smelling EXTREMITIES: Bilateral lower extremity pitting edema SKIN: No rash NEUROLOGICAL EXAMINATION: no focal deficits PSYCHIATRIC EXAMINATION: Calm and cooperative LABORATORY DATA, IMAGING STUDIES, MICROBIOLOGY: Please see below. ASSESSMENT AND PLAN: 80-year-old female with multiple medical comorbidities, was admitted for abdominal abscess secondary to perforated diverticulitis #. Abdominal abscess - Secondary to perforated diverticulitis, s/p IR drainage on 03/17, blood cultures negative, abscess cultures pending, initial gram stain showing many gram positive and gram negative rods. Continue empiric antibiotics, fluid from abscess drain is concerning for stool, output continues to decrease -Low sodium diet ordered. #. LE edema -Echo showing LVEF 65% with moderately elevated right ventricle systolic pressure, mild mitral regurg, elevated CVP - Gave 1x dose of IV lasix to see how she responds, may titrate or schedule regular dosing in AM. #. Hypothyroidism - Continue levothyroxine #. GERD - Protonix #. A. fib -Eliquis, rate control agent switched to metoprolol BID. DVT prophylaxis: Eliquis GI prophylaxis: PPI Attending attestation: I evaluated and examined the patient in person; I discussed the care with Resident in detail and agree with the plan above. VS,Fishbone, I+O VS, Fishbone, I+O Laboratory Tests 03/19/20 11:46 Vital Signs Date Time Temp Pulse Resp B/P (MAP) Pulse Ox O2 Delivery O2 Flow Rate FiO2 03/19/20 14:00 97.1 107 19 102/76 (85) 96 Room Air I&O- Last 24 Hours up to 6 AM 03/19/20 06:00 Intake Total 1140 ml Output Total 650 ml Balance 490 ml GME ATTESTATION GME ATTESTATION My faculty preceptor for this patient encounter was physically present during the encounter and was fully available. All aspects of the patient interview, examination, medical decision making process, and medical care plan development were reviewed and approved by the faculty preceptor. The faculty preceptor is aware and concurs with the plan as stated in the body of this note and will attest to such by his/her cosignature. OVIDIO HSU DO March 19, 2020 20:17 NATI OLIVER MD March 23, 2020 19:32
[2020-03-19] MEDS: METOPROLOL TART 25 MG TABLET PO SCH (20:38)
[2020-03-19 22:00] VITALS: BP 114/79
[2020-03-20] MEDS: metroNIDAZOLE 500 MG in IV 1 EA IV SCH ×3 (04:54→20:22)
[2020-03-20 06:00] VITALS: BP 111/77
[2020-03-20] MEDS: CIPROFLOXACIN 400 MG in IV 1 EA IV SCH ×2 (06:09→18:39)
[2020-03-20] MEDS: LEVOTHYROXINE 50MCG TABLET (0.05MG) PO SCH (06:09)
[2020-03-20 06:55] LABS: HEMATOCRIT 26.4 % (36.0-47.0); MEAN CORPUSCULAR HEMOGLOBIN 27.6 pg (27.0-33.0); MEAN CORPUSCULAR HGB CONC 34.1 g/dl (32.0-36.5); PLATELET COUNT, AUTOMATED 400 10^3/uL (150-450); RED BLOOD COUNT 3.26 10^6/uL (4.00-5.40); WHITE BLOOD COUNT 14.7 10^3/uL (4.0-10.0)
[2020-03-20 07:06] LABS: BLOOD UREA NITROGEN 4 MG/DL (7-18); CALCIUM LEVEL 7.5 MG/DL (8.8-10.2); CARBON DIOXIDE LEVEL 27 MEQ/L (21-32); CHLORIDE LEVEL 98 MEQ/L (98-107); GLOMERULAR FILTRATION RATE > 60.0 (>39); GLUCOSE, FASTING 110 MG/DL (70-100); POTASSIUM SERUM 3.4 MEQ/L (3.5-5.1); SODIUM LEVEL 132 MEQ/L (136-145)
[2020-03-20] MEDS ORDERED: FUROSEMIDE 40MG/4ML VIAL (J1940) IV SCH (09:00)
[2020-03-20] MEDS: METOPROLOL TART 25 MG TABLET PO SCH ×2 (10:29→20:22)
[2020-03-20] MEDS: APIXABAN 5 MG TAB (ELIQUIS) PO SCH ×2 (10:29→20:22)
[2020-03-20] MEDS: PANTOPRAZOLE 40MG VIAL (C9113 PER 1) IV SCH (10:29)
[2020-03-20] MEDS: POTASSIUM CHLORIDE 10 MEQ SR TABLET PO SCH ×3 (11:06→18:39)
--- NOTE | 2020-03-20 12:32 | IPNPDOC ---
Text Note Date of Service The patient was seen on 03/20/20. NOTE SUBJECTIVE: 80-year-old female with past medical history of CVA, hypothyroidism, hyperlipidemia and GERD was admitted for right lower quadrant abscess secondary to perforated diverticulitis. No acute events overnight, no new complaints. Though it isnt documented how much she urinated she did urinate several times yesterday and reports her leg swelling is better. Patient denies any fevers, chills, chest pain, shortness of breath, abdominal pain, nausea, vomiting, diarrhea or constipation. PHYSICAL EXAMINATION: VITAL SIGNS: Please see below. GENERAL: No distress HEENT: Normocephalic, atraumatic, moist mucous membranes CARDIOVASCULAR EXAMINATION: Regular rate and irregular rhythm, normal S1, S2 RESPIRATORY EXAMINATION: Clear to auscultation, no wheezing ABDOMINAL EXAMINATION: Soft, mild right lower quadrant and left lower quadrant tenderness, nondistended, positive bowel sounds, abscess drain with minimal brown fluid in the bag. EXTREMITIES: Bilateral lower extremity pitting edema 1+ SKIN: No rash NEUROLOGICAL EXAMINATION: no focal deficits PSYCHIATRIC EXAMINATION: Calm and cooperative LABORATORY DATA, IMAGING STUDIES, MICROBIOLOGY: Please see below. ASSESSMENT AND PLAN: 80-year-old female with multiple medical comorbidities, was admitted for abdominal abscess secondary to perforated diverticulitis #. Abdominal abscess - Secondary to perforated diverticulitis, s/p IR drainage on 03/17, blood cultures negative, abscess cultures pending, initial gram growing staph, e.coli, and Klebsiella pneumonia sensitive to fluoroquinolones. Continue empiric antibi otics. #. LE edema -Echo showing LVEF 65% with moderately elevated right ventricle systolic pressur e, mild mitral regurg, elevated CVP - Seems to be doing well with daily lasix dose, will repeat 40 mg again today as her LE edema has improved significantly. -Low sodium diet ordered. #. Hypothyroidism - Continue levothyroxine #. GERD - Protonix #. A. fib -Eliquis, rate control agent switched to metoprolol BID. DVT prophylaxis: Eliquis GI prophylaxis: PPI Attending attestation: I evaluated and examined the patient in person; I discussed the care with Resident in detail and agree with the plan above. VS,Fishbone, I+O VS, Fishbone, I+O Laboratory Tests 03/20/20 06:14 Vital Signs Date Time Temp Pulse Resp B/P (MAP) Pulse Ox O2 Delivery O2 Flow Rate FiO2 03/20/20 10:29 99 105/75 03/20/20 06:00 98.1 16 96 Room Air I&O- Last 24 Hours up to 6 AM 03/20/20 06:00 Intake Total 1280 ml Output Total 20 ml Balance 1260 ml GME ATTESTATION GME ATTESTATION My faculty preceptor for this patient encounter was physically present during the encounter and was fully available. All aspects of the patient interview, examination, medical decision making process, and medical care plan development were reviewed and approved by the faculty preceptor. The faculty preceptor is aware and concurs with the plan as stated in the body of this note and will attest to such by his/her cosignature. OVIDIO HSU DO March 20, 2020 12:32 NATI OLIVER MD March 23, 2020 18:34
[2020-03-20 14:00] VITALS: BP 102/72
[2020-03-20] MEDS: ATORVASTATIN 20 MG TAB PO SCH (20:22)
[2020-03-20 22:00] VITALS: BP 105/74
[2020-03-21] MEDS: metroNIDAZOLE 500 MG in IV 1 EA IV SCH (03:57)
[2020-03-21] MEDS: CIPROFLOXACIN 400 MG in IV 1 EA IV SCH (05:42)
[2020-03-21] MEDS: LEVOTHYROXINE 50MCG TABLET (0.05MG) PO SCH (05:42)
[2020-03-21 06:00] VITALS: BP 117/80
[2020-03-21 07:26] LABS: HEMATOCRIT 26.8 % (36.0-47.0); HEMOGLOBIN 8.9 g/dl (12.0-15.5); MEAN CORPUSCULAR HEMOGLOBIN 27.1 pg (27.0-33.0); MEAN CORPUSCULAR HGB CONC 33.2 g/dl (32.0-36.5); MEAN CORPUSCULAR VOLUME 81.5 fl (80.0-96.0); PLATELET COUNT, AUTOMATED 401 10^3/uL (150-450); RED BLOOD COUNT 3.29 10^6/uL (4.00-5.40); WHITE BLOOD COUNT 11.4 10^3/uL (4.0-10.0)
[2020-03-21 07:52] LABS: BLOOD UREA NITROGEN 4 MG/DL (7-18); CALCIUM LEVEL 7.7 MG/DL (8.8-10.2); CARBON DIOXIDE LEVEL 27 MEQ/L (21-32); CHLORIDE LEVEL 99 MEQ/L (98-107); CREATININE FOR GFR 0.34 MG/DL (0.55-1.30); GLOMERULAR FILTRATION RATE > 60.0 (>39); GLUCOSE, FASTING 107 MG/DL (70-100); POTASSIUM SERUM 4.1 MEQ/L (3.5-5.1); SODIUM LEVEL 132 MEQ/L (136-145)
[2020-03-21] MEDS: FUROSEMIDE 40MG/4ML VIAL (J1940) IV SCH (08:51)
[2020-03-21] MEDS: PANTOPRAZOLE 40MG VIAL (C9113 PER 1) IV SCH (08:51)
[2020-03-21] MEDS: APIXABAN 5 MG TAB (ELIQUIS) PO SCH ×2 (08:51→21:01)
[2020-03-21] MEDS: METOPROLOL TART 25 MG TABLET PO SCH ×2 (08:55→21:00)
--- NOTE | 2020-03-21 12:39 | IPNPDOC ---
Date Seen The patient was seen on 03/21/20. Progress Note SUBJECTIVE: 80-year-old female was admitted for abdominal abscess secondary to perforated diverticulitis. Patient had an abscess drain placement by interventional radiology, abscess drainage continues to decrease on a daily basis, patient asymptomatic in the morning, no acute events overnight, without complaints at this time. She denies any nausea, vomiting, abdominal pain, diarrhea or constipation. She is tolerating her diet without any difficulty, cultures grew Escherichia coli, Klebsiella and strep Anginosus. 10 point review of system is negative except for above PHYSICAL EXAMINATION: VITAL SIGNS: Please see below. GENERAL: No distress HEENT: Normocephalic, atraumatic, moist mucous membranes NECK: Supple CARDIOVASCULAR EXAMINATION: S1, S2, tachycardic RESPIRATORY EXAMINATION: Clear to auscultation, no wheezing ABDOMINAL EXAMINATION: Soft, nontender, nondistended, positive bowel sounds, abscess drain with small amount of purulent drainage EXTREMITIES: Range of motion intact SKIN: No rash NEUROLOGICAL EXAMINATION: Alert and oriented 3, no focal deficits PSYCHIATRIC EXAMINATION: Calm and cooperative LABORATORY DATA, IMAGING STUDIES, MICROBIOLOGY: Please see below. ASSESSMENT AND PLAN: 80-year-old female was admitted for abdominal abscess secondary to perforated diverticulitis, status post drain placement by interventional radiology. PROBLEMS: 1. Abdominal abscess: Secondary to perforated diverticulitis, status post drain placement, cultures growing Escherichia coli, Klebsiella and Streptococcus Anginosus, continue ciprofloxacin and Flagyl, plan for discharge when cleared by physical therapy. 2. A. fib with RVR: Increase metoprolol to 50 mg twice a day, continue Eliquis for anticoagulation. 3. Volume overload: Echo showing elevated right-sided pressures, good clinical response to diuresis, continue Lasix 40 mg IV daily for now. 4. Hypothyroidism: Continue levothyroxine 5. Dementia: Continue donepezil DVT prophylaxis: On Eliquis GI prophylaxis: PPI VS, I&O, 24H, Fishbone Vital Signs/I&O Vital Signs Date Time Temp Pulse Resp B/P (MAP) Pulse Ox O2 Delivery O2 Flow Rate FiO2 03/21/20 08:55 95 126/90 03/21/20 06:00 97.9 16 97 Room Air I&O- Last 24 Hours up to 6 AM0 03/21/20 05:59 Intake Total 660 ml Output Total 0 ml Balance 660 ml Laboratory Data 24H LABS Laboratory Tests 2 03/21/20 06:29: Nucleated Red Blood Cells % (auto) 0.0, Anion Gap 6L, Glomerular Filtration Rate > 60.0, Calcium Level 7.7L CBC/BMP Laboratory Tests 03/21/20 06:29 Microbiology Microbiology 03/17/20 Gram Stain - Final, Complete 03/17/20 Abscess Culture - Final, Complete Escherichia Coli Klebsiella Pneumoniae Streptococcus Anginosus Grp 03/17/20 Anaerobic Culture, Received Pending 03/16/20 Blood Culture - Preliminary, Resulted No Growth after 72 hours. All specime... 03/16/20 Blood Culture - Preliminary, Resulted No Growth after 72 hours. All specime... NATI OLIVER MD March 21, 2020 12:39
[2020-03-21] MEDS: metroNIDAZOLE (FLAGYL) 500 MG TAB PO SCH ×2 (13:07→21:02)
[2020-03-21] MEDS: SERTRALINE HCL 50 MG TAB PO SCH (13:07)
[2020-03-21] MEDS: OMEPRAZOLE 20 MG CAP PO SCH ×2 (13:07→21:02)
[2020-03-21 14:00] VITALS: BP 111/77
[2020-03-21] MEDS: CIPROFLOXACIN 500MG TABLET PO SCH (17:41)
[2020-03-21] MEDS ORDERED: DONEPEZIL 5 MG TAB PO SCH (21:00)
[2020-03-21] MEDS: ATORVASTATIN 20 MG TAB PO SCH (21:02)
[2020-03-21 22:00] VITALS: BP 111/77
[2020-03-22] MEDS: LEVOTHYROXINE 50MCG TABLET (0.05MG) PO SCH (05:44)
[2020-03-22] MEDS: metroNIDAZOLE (FLAGYL) 500 MG TAB PO SCH ×2 (05:44→12:40)
[2020-03-22] MEDS: CIPROFLOXACIN 500MG TABLET PO SCH (05:44)
[2020-03-22 06:00] VITALS: BP 163/74
[2020-03-22 07:21] LABS: HEMATOCRIT 27.2 % (36.0-47.0); HEMOGLOBIN 9.3 g/dl (12.0-15.5); MEAN CORPUSCULAR HEMOGLOBIN 27.6 pg (27.0-33.0); MEAN CORPUSCULAR HGB CONC 34.2 g/dl (32.0-36.5); MEAN CORPUSCULAR VOLUME 80.7 fl (80.0-96.0); PLATELET COUNT, AUTOMATED 437 10^3/uL (150-450); RED BLOOD COUNT 3.37 10^6/uL (4.00-5.40); WHITE BLOOD COUNT 12.8 10^3/uL (4.0-10.0)
[2020-03-22 07:44] LABS: BLOOD UREA NITROGEN 5 MG/DL (7-18); CALCIUM LEVEL 7.6 MG/DL (8.8-10.2); CARBON DIOXIDE LEVEL 28 MEQ/L (21-32); CHLORIDE LEVEL 96 MEQ/L (98-107); CREATININE FOR GFR 0.33 MG/DL (0.55-1.30); GLOMERULAR FILTRATION RATE > 60.0 (>39); GLUCOSE, FASTING 77 MG/DL (70-100); POTASSIUM SERUM 4.2 MEQ/L (3.5-5.1); SODIUM LEVEL 131 MEQ/L (136-145)
[2020-03-22] MEDS: OMEPRAZOLE 20 MG CAP PO SCH (08:30)
[2020-03-22] MEDS: PANTOPRAZOLE 40MG VIAL (C9113 PER 1) IV SCH (08:30)
[2020-03-22] MEDS: FUROSEMIDE 40MG/4ML VIAL (J1940) IV SCH (08:30)
[2020-03-22] MEDS: APIXABAN 5 MG TAB (ELIQUIS) PO SCH (08:30)
[2020-03-22] MEDS: SERTRALINE HCL 50 MG TAB PO SCH (08:30)
[2020-03-22 08:31] VITALS: BP 100/68
[2020-03-22] MEDS: METOPROLOL TART 25 MG TABLET PO SCH (08:31)
[2020-03-22] MEDS ORDERED: ACETAMINOPHEN 500 MG TAB PO SCH (09:00)
[2020-03-22 14:00] VITALS: BP 97/64
[2020-03-22] MEDS ORDERED: FURO40TA2 PO (14:54)
[2020-03-22] MEDS ORDERED: FLAG500T PO (14:54)
[2020-03-22] MEDS ORDERED: CIPR-249 PO (14:54)
--- NOTE | 2020-03-22 15:49 | DS.PDOC ---
Discharge Summary General Date of Admission Mar 16, 2020 at 19:16 Date of Discharge March 22, 2020 Primary Care Physician: Zuhair Hernandes Attending Physician: NATI OLIVER MD Specialist/Consultants Involve: CHERYL BERRY [facility] Discharge Summary PROCEDURES PERFORMED DURING STAY: [None]. ADMITTING DIAGNOSES: 1. Sepsis 2/2 RLQ abcess 2. Perforated diverticulitis 3. Protein calorie malnutrition 4. Hypovolemic hypotonic hyponatremia 5. Atrial fibrillation 6. Hypothyroidism 7. GERD 8. Depression/anxiety 9. Dementia 10. Hypercholesterolemia DISCHARGE DIAGNOSES: 1. Sepsis 2/2 RLQ abcess 2. Perforated diverticulitis 3. Protein calorie malnutrition 4. Hypovolemic hypotonic hyponatremia 5. Atrial fibrillation 6. Hypothyroidism 7. GERD 8. Depression/anxiety 9. Dementia 10. Hypercholesterolemia COMPLICATIONS/CHIEF COMPLAINT: Cva,Perforated Abdominal Viscus. HISTORY OF PRESENT ILLNESS: Patient is a 80 year old female presenting with chief complaint of loss of consciousness. Patient was found by her daughter this morning after finding her on the ground. When she found her she was conscious and did not remember what happened but thinks she did lose consciousness and hit her head on the ground. She states she has had loose stools since last , but thinks there have only been 2/day with decreased PO intake. In the ED she was found to be tachycardic with 2+ pitting edema, WBC count of 24, hyponatremia, hypokalemia, lactic acidosis, and an elevated BNP. CT head, C- spine, CXR were negative, with CTabd/pelvis demonstrating microperforation and RLQ abdominal abscess. Patient received 1x zosyn and 1.5 liters of fluid res uscitation. HOSPITAL COURSE: The patient was admitted with sepsis secondary to microperforation of abdominal viscous 2/2 perforated diverticula. She was taken to the IR suite where an abscess drain was inserted. This drain eventually put out about 140ccs. She was started on empiric antibiotics Ciprofloxacin and Flagyl. Her WBC on admission was found to be 24,000 but trended down to 12,800. Blood cultures were negative but abscess fluid grew actinomyces israelii, bacteriodes ovatus/thetaiotaom, anaerobic cocci. Abdominal abscess gram stain grew E. coli, Klebsiella pneumoniae, Strep anginosus. The patient was also found to have 3+ pitting edema in bilateral extremities on admission with very low albumin. She was started on IV lasix which improved her edema and her BP. She was discharged home on 40mg PO lasix daily. DISCHARGE MEDICATIONS: Please see below. ALLERGIES: Please see below. PHYSICAL EXAMINATION ON DISCHARGE: VITAL SIGNS: Please see below. GENERAL: No distress HEENT: Normocephalic, atraumatic, moist mucous membranes NECK: Supple CARDIOVASCULAR EXAMINATION: S1, S2, tachycardic RESPIRATORY EXAMINATION: Clear to auscultation, no wheezing ABDOMINAL EXAMINATION: Soft, nontender, nondistended, positive bowel sounds, abscess drain with small amount of purulent drainage EXTREMITIES: Range of motion intact SKIN: No rash NEUROLOGICAL EXAMINATION: Alert and oriented 3, no focal deficits PSYCHIATRIC EXAMINATION: Calm and cooperative LABORATORY DATA: Please see below. IMAGING: CT BRAIN WITHOUT CONTRAST: HISTORY: Injury in a fall. COMPARISON STUDY: July 11, 2019. FINDINGS: Digital preliminary program rep radiographs are unremarkable. Bone window settings demonstrate an intact bony calvarium. Visualized paranasal sinuses are clear. No intraorbital abnormality is appreciated. On soft tissue window settings, there is mild to moderate generalized volume lo ss again noted. There is evidence of an old right cerebellar infarct superiorly unchanged. No acute cortical infarction is seen. There is no evidence of intracranial hemorrhage. No mass, extra-axial fluid collection or midline shift is seen. IMPRESSION: No acute intracranial abnormality. Generalized volume loss. 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 Otherwise negative. CT study of the cervical spine without contrast: History: Injury in a fall. Technique: Helical scanning is acquired and overlapping 2 mm high resolution axial images were generated and reviewed at bone and soft tissue window settings. Coronal and sagittal multiplanar re-formations images are generated. CT findings: There is no evidence of cervical spine element fracture. No skull base fracture is seen. Cervical vertebral body heights are preserved. Alignment is normal. Facet joints are normally aligned bilaterally at each cervical level on multiplanar re-formations images. There is no evidence of intraspinal or paraspinal hematoma. No extra vertebral abnormality is seen. There is straightening of the normal cervical lordosis. Degenerative disc changes are noted most pronounced at C5-6 and C6-7 but also to a lesser degree at C4-5 and C3-4. There is some degenerative disc calcification at these levels. Mild osteoarthritic facet hypertrophy and joint space narrowing is seen bilaterally in the cervical facet joints. There is a dextroconvex curvature. Impression: Degenerative spondylosis changes. Straightening and dextroconvex curvature noted. Otherwise negative CT study of the cervical spine without contrast. No fracture seen. CHEST, SINGLE VIEW: Single view of the chest is performed and compared to a prior study of 07/11/2019. No acute infiltrate is seen. There is again elevation of the right hemidiaphragm. Patient is rotated toward the right. Cardiac silhouette is prominent. Visualized osseous structures demonstrate no definite fracture. IMPRESSION: No evidence of acute pulmonary disease. CT ABDOMEN/PELVIS WITH IV CONTRAST: TECHNIQUE: Axial contrast enhanced images from the lung bases to the pubic symphysis using 100 mL Isovue-370 intravenous contrast material with multiplanar reformations. In the visualized lung bases, there are dependent atelectatic changes. There is a small left pleural effusion. There is a moderate to large hiatal hernia. The liver appears unremarkable. Gallbladder is moderately distended with no definite intraluminal calculus. Spleen is normal in size with no intrinsic abnormality. There is mild adrenal gland thickening bilaterally. Pancreas demonstrates no mass. There are cysts of each kidney with no hydronephrosis. There is no abdominal aortic aneurysm. There is no adenopathy. Scattered free air is seen in the upper abdomen and in the pelvis. There is mild free fluid in the pelvis. Diffuse colonic diverticulosis is noted. There is diffuse thickening of the sigmoid colon, compatible with diverticulitis. There is adjacent phlegmonous change with ill-defined air and fluid in the right pelvis extending superiorly. There is a right lower quadrant air-fluid collection, consistent with an abscess having a diameter of approximately 9.5 cm. Large calcified mass anteriorly in the pelvis measures about 5 cm in diameter and probably represents a calcified uterine fibroid. Metallic prosthesis is noted of the right hip. There are degenerative changes of the lumbar spine. IMPRESSION: Small left pleural effusion. Scattered free air in the abdomen and pelvis. There appears to be perforated diverticulitis of the sigmoid with adjacent extraluminal air and fluid and phlegmonous change in the right pelvis extending superiorly. There is a right lower quadrant abscess measuring 9.5 cm in diameter. Findings were conveyed to Dr. Matute in the ER at the time of the exam. Moderate to large hiatal hernia. Moderately distended gallbladder. Calcified uterine fibroid. Ultrasound-guided abscess drain The procedure was performed by Cheryl Berry [facility], under the direct supervision of Dr. Ruiz. The risks and benefits of the procedure were explained to the patient and informed consent was obtained both verbally and written. Directly prior to the start of the procedure, a formal timeout was completed in the procedure room. Under ultrasound guidance, the right lower quadrant abscess was localized and skin was marked. The skin was then prepped and draped in a sterile fashion. 6 ml of buffered lidocaine was used as a local anesthetic. Using ultrasound guidance, an 10-Emirati multi side-hole the pigtail catheter was inserted using trocar technique. 120 mL of pus fluid was withdrawn and sent to the lab for further analysis. A drainage bag was hooked up to the end of the catheter, and the patient was discharged from the department. PROGNOSIS: fair ACTIVITY: [As tolerated]. DIET: low sodium DISCHARGE PLAN: home DISPOSITION: . DISCHARGE INSTRUCTIONS: 1. Please follow up with IR in outpatient clinic within 7 days 2. Please follow up with PCP within 14 days ITEMS TO FOLLOWUP ON ON OUTPATIENT: 1. none DISCHARGE CONDITION: [Stable]. TIME SPENT ON DISCHARGE: Greater than 35 minutes. Attending attestation: I evaluated and examined the patient in person; I discussed the care with Resident in detail and agree with the plan above. Vital Signs/I&Os Vital Signs Date Time Temp Pulse Resp B/P (MAP) Pulse Ox O2 Delivery O2 Flow Rate FiO2 03/22/20 14:00 98.8 124 16 97/64 (75) 97 Room Air I&O- Last 24 Hours up to 6 AM 03/22/20 06:00 Intake Total 680 ml Balance 680 ml Laboratory Data Labs 24H Laboratory Tests 2 03/22/20 06:30: Nucleated Red Blood Cells % (auto) 0.0, Anion Gap 7L, Glomerular Filtration Rate > 60.0, Calcium Level 7.6L CBC/BMP Laboratory Tests 03/22/20 06:30 Microbiology Microbiology 03/17/20 Gram Stain - Final, Complete 03/17/20 Abscess Culture - Final, Complete Escherichia Coli Klebsiella Pneumoniae Streptococcus Anginosus Grp 03/17/20 Anaerobic Culture - Final, Complete Actinomyces Israelii Bacteroides Ovatus/Thetaiotaom Anaerobic Cocci 03/16/20 Blood Culture - Final, Complete NO GROWTH AFTER 5 DAYS 03/16/20 Blood Culture - Final, Complete NO GROWTH AFTER 5 DAYS Discharge Medications Scheduled Apixaban (Eliquis) 5 Mg Tablet, 5 MG PO BID, (Reported) Atenolol (Atenolol) 25 Mg Tablet, 25 MG PO DAILY, (Reported) Atorvastatin Calcium (Atorvastatin Calcium) 40 Mg Tab, 40 MG PO QHS, (Reported) Ciprofloxacin HCl (Ciprofloxacin HCl) 500 Mg Tablet, 500 MG PO BID, (Reported) FILLED 03/22/20 FOR 10 DAYS Donepezil HCl (Donepezil HCl) 10 Mg Tablet, 10 MG PO QHS, (Reported) Furosemide (Lasix) 40 Mg Tablet, 40 MG PO DAILY, (Reported) Levothyroxine Sodium (Levothyroxine Sodium) 50 Mcg Tab, 50 MCG PO DAILY, (Repor deja) Metronidazole (Flagyl) 500 Mg Tablet, 500 MG PO Q8H, (Reported) FILLED 03/22/20 FOR 10 DAYS Multivitamins (Thera M Plus Tablet) 1 Tab Tab, 1 TAB PO DAILY, (Reported) Omeprazole (Omeprazole) 20 Mg Cap, 20 MG PO BID, (Reported) Sertraline HCl (Sertraline HCl) 50 Mg Tablet, 50 MG PO DAILY, (Reported) Allergies Coded Allergies: No Known Allergies (Unverified , 03/23/20) GME ATTESTATION GME ATTESTATION My faculty preceptor for this patient encounter was physically present during the encounter and was fully available. All aspects of the patient interview, examination, medical decision making process, and medical care plan development were reviewed and approved by the faculty preceptor. The faculty preceptor is aware and concurs with the plan as stated in the body of this note and will a ttest to such by his/her cosignature. HEIDI MATUTE MD March 22, 2020 15:49 NATI OLIVER MD March 23, 2020 19:54
[2020-03-23] MEDS ORDERED: PANTOPRAZOLE 40MG TAB (PROTONIX) PO SCH (09:00)
[2020-03-23] MEDS ORDERED: FUROSEMIDE 40 MG TAB PO SCH (09:00)
[2020-03-23] MEDS ORDERED: FLAG500T PO (11:41)
[2020-03-23] MEDS ORDERED: LASI40TA9 PO (11:41)
[2020-03-23] MEDS ORDERED: CIPR500T3 PO (11:41)
== END 2020-03-22 18:13 | disposition home health service (06) | DRG 872 ==
LOC: M ED 10:54 → EDBD 10:54 → M ED INP 16:36 → UNDOADMIN 16:36 → ENRESERV 19:00 → M PCU 19:16 → M ED INP 20:11 → ENRESERV 20:17 → CANRESERV 20:17 → M PCU 21:59 → M MSPAV 03-18 11:03
PROVIDERS: ADMIT Internal Medicine; ATTEND Internal Medicine
PROC: 0W9G30Z Drainage of Peritoneal Cavity with Drainage Device, Percutaneous Approach (ICD-10-PCS; principal; 2020-03-17 13:30)
DX: A41.9 Sepsis, unspecified organism (principal); K57.20 Diverticulitis of large intestine with perforation and abscess without bleeding; Q21.1 Atrial septal defect; E87.1 Hypo-osmolality and hyponatremia; E46 Unspecified protein-calorie malnutrition; R55 Syncope and collapse; K21.9 Gastro-esophageal reflux disease without esophagitis; M47.812 Spondylosis without myelopathy or radiculopathy, cervical region; E03.9 Hypothyroidism, unspecified; E78.2 Mixed hyperlipidemia; K44.9 Diaphragmatic hernia without obstruction or gangrene; E87.6 Hypokalemia; E86.0 Dehydration; I48.91 Unspecified atrial fibrillation; Z96.641 Presence of right artificial hip joint; F41.9 Anxiety disorder, unspecified; F32.9 Major depressive disorder, single episode, unspecified; F03.90 Unspecified dementia, unspecified severity, without behavioral disturbance, psychotic disturbance, mood disturbance, and anxiety; Z79.01 Long term (current) use of anticoagulants; Z79.899 Other long term (current) drug therapy; Z86.73 Personal history of transient ischemic attack (TIA), and cerebral infarction without residual deficits

== ENCOUNTER 2020-03-23 09:38 | Observation (INO) | payer MEDICARE ==
[~2020-03-23] VITALS: Ht 162.6 cm; Wt 67.8 kg
[~2020-03-23 09:38] MED LIST changes: +ATEN25TA PO; +CIPR-249 PO; +DONE10TA90 PO; +ELIQ5TAB PO; +FLAG500T PO; +FURO40TA2 PO; +SERT50TA29 PO; +atenoloL 25 MG TAB PO SCH
[2020-03-23] MEDS ORDERED: NS 1,000 ML IV SCH (10:30)
[2020-03-23 10:50] LABS: BASO % 0.2 % (0.0-1.0); EOS % 0.1 % (0.0-3.0); HEMATOCRIT 31.7 % (36.0-47.0); HEMOGLOBIN 10.6 g/dl (12.0-15.5); LYMPH # 0.8 10^3/uL (1.5-5.0); LYMPH % 3.9 % (24.0-44.0); MEAN CORPUSCULAR HEMOGLOBIN 27.3 pg (27.0-33.0); MEAN CORPUSCULAR HGB CONC 33.4 g/dl (32.0-36.5); MEAN CORPUSCULAR VOLUME 81.7 fl (80.0-96.0); MONO # 1.2 10^3/uL (0.0-0.8); MONO % 6.1 % (0.0-5.0); NEUTROPHILS # 18.1 10^3/uL (1.5-8.5); NEUTROPHILS % 88.7 % (36.0-66.0); PLATELET COUNT, AUTOMATED 427 10^3/uL (150-450); RED BLOOD COUNT 3.88 10^6/uL (4.00-5.40); WHITE BLOOD COUNT 20.4 10^3/uL (4.0-10.0)
[2020-03-23] MEDS ORDERED: LASI40TA9 PO (11:41)
[2020-03-23] MEDS ORDERED: CIPR500T3 PO (11:41)
[2020-03-23] MEDS ORDERED: FLAG500T PO (11:41)
[2020-03-23 11:44] LABS: ALBUMIN 1.8 GM/DL (3.2-5.2); ALT/SGPT 27 U/L (12-78); BILIRUBIN,DIRECT 0.2 MG/DL (0.0-0.2); BILIRUBIN,TOTAL 0.6 MG/DL (0.2-1.0); BLOOD UREA NITROGEN 6 MG/DL (7-18); CALCIUM LEVEL 8.1 MG/DL (8.8-10.2); CARBON DIOXIDE LEVEL 25 MEQ/L (21-32); CHLORIDE LEVEL 97 MEQ/L (98-107); CK-MB VALUE MASS 1.3 NG/ML (<3.6); CPK CREATINE PHOSPHOKINASE 23 U/L (26-192); GLOMERULAR FILTRATION RATE > 60.0 (>39); GLUCOSE, FASTING 88 MG/DL (70-100); LIPASE 77 U/L (73-393); MB/CK RELATIVE INDEX 5.65 (< OR =4); POTASSIUM SERUM 3.2 MEQ/L (3.5-5.1); SODIUM LEVEL 129 MEQ/L (136-145); TOTAL PROTEIN 6.4 GM/DL (6.4-8.2); TROPONIN I < 0.02 NG/ML (< 0.10)
[2020-03-23] MEDS ORDERED: ISOVUE-370 76% 100ML VIAL As Ordered ONE (11:53)
[2020-03-23] MEDS ORDERED: POTASSIUM CHLORIDE 10 MEQ SR TABLET PO ONE ×2 (12:00→18:00)
--- NOTE | 2020-03-23 12:56 | REP ---
REASON: Abdominal pain and hypotension. COMPARISON: 03/16/2020 CONTRAST: 100 mL Isovue-370. There is no change in the lung bases. The gallbladder is somewhat hydropic, essentially unchanged. The free intraperitoneal air seen on the prior exam has, for the most part, resolved with the minimal most residual suspected. The liver and spleen are unchanged. The pancreas and adrenal glands are unchanged. The left kidney is unchanged and again seen to be within normal limits. Since the last exam, moderate right-sided hydronephrosis and proximal hydroureter have developed. Within the right ureter at the level of and just distal to the iliac crest, there is a possible ureterolith. There are extensive soft tissue calcifications in that region, which are unchanged. There is no change in the abdominal aorta or para-aortic regions. A few gas- and fluid-filled nondilated small bowel loops are seen in the abdomen and pelvis. The free pelvic fluid seen previously has gotten slightly smaller. There is a surgical drainage tube in the abdomen on the left draining a previously present abscess. The phlegmonous material seen in that region is much less today. 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 There is no change in the osseous structures. IMPRESSION: 1. Status post surgical drainage tube placement, as described above. There has been improvement in the appearance of the abscess and phlegmonous material. Small amount of free fluid persists in the pelvis, and there is a tiny amount of suspected free intraperitoneal air. A mild ileus is suspected. 2. There is new right-sided hydronephrosis and proximal hydroureter, and whether or not that is secondary to inflammatory change in the lower abdomen and upper pelvis or secondary to a small ureterolith, cannot be stated with certainty by this exam. Followup is recommended. Delayed contrast-enhanced imaging may be helpful if clinically relevant. 3. Other findings as described above. Electronically Signed by Geovany Navarrete DO 03/23/2020 12:59 P
[2020-03-23] MEDS ORDERED: ERTAPENEM SODIUM 1 GM in NS MINI-BAG PLUS 50 ML IV ONE (13:30)
--- NOTE | 2020-03-23 14:43 | REP ---
CHEST, PORTABLE: AP portable view of the chest is performed. There is mild parenchymal opacity in each lung base representing atelectasis and/or infiltrate. There is a small left pleural effusion. The heart and mediastinum are unchanged. IMPRESSION: Mild bibasilar atelectasis/infiltrate. Small left effusion. Electronically Signed by Beau Ruiz MD 03/23/2020 03:54 P
[2020-03-23] MEDS ORDERED: metroNIDAZOLE (FLAGYL) 500 MG TAB PO ONE (15:00)
[2020-03-23 16:10] VITALS: BP 119/58
--- NOTE | 2020-03-23 16:11 | HPEPDOC ---
[facility] Medical History & Physical Date of Admission March 23, 2020 Date of Service: March 23, 2020 Primary Care Physician: Lynette Wilcox Attending Physician: NATI PEREZ MD History and Physical PRIMARY CARE PROVIDER: Lynette Wilcox ATTENDING: Dr. Nati Perez CHIEF COMPLAINT: Weakness, abdominal pain, hypotension (at home, measured by EMS) HISTORY OF PRESENT ILLNESS: Chrissy Case is a 80 YO F with history of CVA 2/2 PFO, recent hospitalization for perforated viscous who presents the day after her discharge via EMS for weakness and abdominal pain this morning. Her daughter Sarah (primary scoop machine operator) states that she woke up this morning feeling very weak, unable to ascend 4 stairs and get to the bathroom on her own. She was found to be very sweaty and complained of severe abdominal pain. On the last hospitalization, she presented complaining of a fall and diarrhea and was found to have abdominal free air and a 4.9cm abscess in the RLQ that was drained by IR. The drain is still in place. She reports feeling "hot" and her abdominal pain on presentation is 4/10. She denies any nausea/vomiting or diarrhea at this time. 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 FAMILY HISTORY: Patient does not recall. ALLERGIES: Please see below. REVIEW OF SYSTEMS: GENERAL: Reports feeling "hot," chills, recent unexpected weight change, night sweats, hemoptysis HEENT: Denies headache, dizziness, vision changes, hearing loss, sore throat CARDIOVASCULAR: Denies chest pain, palpitations, orthopnea RESPIRATORY: Denies shortness of breath, wheezing, cough GASTROINTESTINAL: denies nausea, vomiting, abdominal pain, constipation, bloody stool. GENITOURINARY: Denies dysuria,urinary urgency, hematuria. MUSCULOSKELETAL: Denies muscle/joint pain, weakness, stiffness NEUROLOGICAL: Denies any numbness/tingling, focal weakness, or syncope HOME MEDICATIONS: Please see below. PHYSICAL EXAMINATION: Vitals: (see below) General: Pale appearing female in no acute distress, laying comfortably in bed. HEENT: Normocephalic, atraumatic. EOMI. No scleral icterus. dry mucous membranes. No pharyngeal erythema or uvular deviation. Neck: No JVD, lymphadenopathy, or thyromegaly. Cardiac: RRR, Normal S1 and S2, No murmurs, gallops, rubs. Pulm: Clear to auscultation b/l. Symmetric thorax. No wheezing, crackles, rhonchi Abd: Bowel Sounds present. Abdomen is soft, non-tender, non-distended. No guarding, rebound tenderness, or rigidity. No hepatosplenomegaly. No masses or eccymosis. Drain is present in RLQ Ext: 2+ pitting edema up to knees in bilateral LE, no cyanosis Vascular: Capillary refill ~3seconds Neuro: No focal neuro deficits. AOx3 LABORATORY DATA: See below. IMAGING: CT ABD/PELVIS WITH IV CONTRAST: REASON: Abdominal pain and hypotension. COMPARISON: 03/16/2020 CONTRAST: 100 mL Isovue-370. There is no change in the lung bases. The gallbladder is somewhat hydropic, essentially unchanged. The free intraperitoneal air seen on the prior exam has, for the most part, resolved with the minimal most residual suspected. The liver and spleen are unchanged. The pancreas and adrenal glands are unchanged. The left kidney is unchanged and again seen to be within normal limits. Since the last exam, moderate right-sided hydronephrosis and proximal hydroureter have developed. Within the right ureter at the level of and just distal to the iliac crest, there is a possible ureterolith. There are extensive soft tissue calcifications in that region, which are unchanged. There is no change in the abdominal aorta or para-aortic regions. A few gas- and fluid-filled nondilated small bowel loops are seen in the abdomen and pelvis. The free pelvic fluid seen previously has gotten slightly smaller. There is a surgical drainage tube in the abdomen on the left draining a previously present abscess. The phlegmonous material seen in that region is much less today. 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 There is no change in the osseous structures. IMPRESSION: 1. Status post surgical drainage tube placement, as described above. There has been improvement in the appearance of the abscess and phlegmonous material. Small amount of free fluid persists in the pelvis, and there is a tiny amount of suspected free intraperitoneal air. A mild ileus is suspected. 2. There is new right-sided hydronephrosis and proximal hydroureter, and whether or not that is secondary to inflammatory change in the lower abdomen and upper pelvis or secondary to a small ureterolith, cannot be stated with certainty by this exam. Followup is recommended. Delayed contrast-enhanced imaging may be helpful if clinically relevant. 3. Other findings as described above. MICROBIOLOGY: Please see below. ASSESSMENT/PLAN: Chrissy Zayas is a 80 YO F with history of CVA and recent perforated diverticuli who presents less than 24h after discharge with weakness and abdominal pain found to have hypokalemia and lactic acidosis likely 2/2 dehydration. #Lactic acidosis 2/2 dehydration -S/p 1 dose Ertapenem in ED -S/p 1L NS in ED, will hold off on any further fluid resuscitation due to her elevated R-sided pressures #?New hydronephrosis found on CT abd/pelvis: -Will order UA, reflex to culture -WBC did jump from 12 to 20 today, but as all cell lines increased, likely 2/2 dehydration #Recent history perforated viscous 2/2 perforated diverticuli -Continue Cipro and Flagyl x10 days -Will have drain removed by IR tomorrow AM #. Hyponatremia - Likely secondary to decreased PO intake, dehydration #. Hypokalemia - Likely secondary to dehydration and decreased PO intake. - Potassium replaced #. Afib - Continue Eliquis - Continue atenolol for rate control #. Hypothyroidism -Continue synthroid #. GERD -Continue oral Omeprazole #. Depression/anxiety -Continue Sertraline #. Hypercholesterolemia - Continue statin #. Dementia -Holding home donepezil due to long QT warning from Cipro interaction -DVT prophy: on Eliquis Attending attestation: I evaluated and examined the patient in person; I discussed the care with Resident in detail and agree with the plan above. Vital Signs Vital Signs Date Time Temp Pulse Resp B/P (MAP) Pulse Ox O2 Delivery O2 Flow Rate FiO2 03/23/20 14:00 128 101/71 (81) 98 03/23/20 09:50 96.8 18 Room Air Laboratory Data Labs 24H Laboratory Tests 2 03/23/20 10:31: Immature Granulocyte % (Auto) 1.0, Neutrophils (%) (Auto) 88.7H, Lymphocytes (%) (Auto) 3.9L, Monocytes (%) (Auto) 6.1H, Eosinophils (%) (Auto) 0.1, Basophils (%) (Auto) 0.2, Neutrophils # (Auto) 18.1H, Lymphocytes # (Auto) 0.8L, Monocytes # (Auto) 1.2H, Eosinophils # (Auto) 0.0, Basophils # (Auto) 0.0, Nucleated Red Blood Cells % (auto) 0.0, Anion Gap 7L, Glomerular Filtration Rate > 60.0, Lactic Acid Level 2.2*H, Calcium Level 8.1L, Total Bilirubin 0.6, Direct Bilirubin 0.2, Aspartate Amino Transf (AST/SGOT) 25, Alanine Aminotransferase (ALT/SGPT) 27, Alkaline Phosphatase 92, Total Creatine Kinase 23L, Creatine Kinase MB 1.3, Creatine Kinase MB Relative Index 5.65H, Troponin I < 0.02, Total Protein 6.4, Albumin 1.8L, Albumin/Globulin Ratio 0.39L, Lipase 77 03/23/20 14:17: CBC/BMP Laboratory Tests 03/23/20 10:31 Microbiology Microbiology 03/23/20 Blood Culture, Received Pending 03/23/20 Blood Culture, Received Pending Home Medications Scheduled Apixaban (Eliquis) 5 Mg Tablet, 5 MG PO BID Atenolol (Atenolol) 25 Mg Tablet, 25 MG PO DAILY Atorvastatin Calcium (Atorvastatin Calcium) 40 Mg Tab, 40 MG PO QHS Ciprofloxacin HCl (Ciprofloxacin HCl) 500 Mg Tablet, 500 MG PO BID FILLED 03/22/20 FOR 10 DAYS Donepezil HCl (Donepezil HCl) 10 Mg Tablet, 10 MG PO QHS Furosemide (Lasix) 40 Mg Tablet, 40 MG PO DAILY Levothyroxine Sodium (Levothyroxine Sodium) 50 Mcg Tab, 50 MCG PO DAILY Metronidazole (Flagyl) 500 Mg Tablet, 500 MG PO Q8H FILLED 03/22/20 FOR 10 DAYS Multivitamins (Thera M Plus Tablet) 1 Tab Tab, 1 TAB PO DAILY Omeprazole (Omeprazole) 20 Mg Cap, 20 MG PO BID Sertraline HCl (Sertraline HCl) 50 Mg Tablet, 50 MG PO DAILY Allergies Coded Allergies: No Known Allergies (Unverified , 03/23/20) A-FIB/CHADSVASC A-FIB History Current/History of A-Fib/PAF?: Yes Current PO Anticoag Therapy: Yes GME ATTESTATION GME ATTESTATION My faculty preceptor for this patient encounter was physically present during the encounter and was fully available. All aspects of the patient interview, examination, medical decision making process, and medical care plan development were reviewed and approved by the faculty preceptor. The faculty preceptor is aware and concurs with the plan as stated in the body of this note and will attest to such by his/her cosignature. HEIDI MATUTE MD March 23, 2020 14:33 NATI PEREZ MD March 23, 2020 20:08
[2020-03-23] MEDS ORDERED: KCL 10MEQ/100ML SWI (KRUN) 10 MEQ in IV 1 EA IV ONE (16:15)
[2020-03-23] MEDS: SERTRALINE HCL 50 MG TAB PO SCH (17:26)
[2020-03-23] MEDS: CIPROFLOXACIN 500MG TABLET PO SCH (17:26)
[2020-03-23] MEDS: atenoloL 25 MG TAB PO SCH (17:26)
[2020-03-23] MEDS ORDERED: DONEPEZIL 5 MG TAB PO SCH (21:00)
[2020-03-23] MEDS: metroNIDAZOLE (FLAGYL) 500 MG TAB PO SCH (21:06)
[2020-03-23] MEDS: APIXABAN 5 MG TAB (ELIQUIS) PO SCH (21:06)
[2020-03-23] MEDS: OMEPRAZOLE 20 MG CAP PO SCH (21:07)
[2020-03-23] MEDS: ATORVASTATIN 20 MG TAB PO SCH (21:07)
[2020-03-23 22:00] VITALS: BP 112/85
[2020-03-24] MEDS: LEVOTHYROXINE 50MCG TABLET (0.05MG) PO SCH (05:52)
[2020-03-24] MEDS: metroNIDAZOLE (FLAGYL) 500 MG TAB PO SCH ×3 (05:52→22:21)
[2020-03-24] MEDS: CIPROFLOXACIN 500MG TABLET PO SCH ×2 (05:52→18:43)
[2020-03-24 06:00] VITALS: BP 110/83
[2020-03-24 08:09] LABS: HEMATOCRIT 29.4 % (36.0-47.0); HEMOGLOBIN 9.6 g/dl (12.0-15.5); MEAN CORPUSCULAR HEMOGLOBIN 26.7 pg (27.0-33.0); MEAN CORPUSCULAR HGB CONC 32.7 g/dl (32.0-36.5); MEAN CORPUSCULAR VOLUME 81.9 fl (80.0-96.0); PLATELET COUNT, AUTOMATED 476 10^3/uL (150-450); RED BLOOD COUNT 3.59 10^6/uL (4.00-5.40); WHITE BLOOD COUNT 21.9 10^3/uL (4.0-10.0)
[2020-03-24 08:31] LABS: BLOOD UREA NITROGEN 8 MG/DL (7-18); CALCIUM LEVEL 7.8 MG/DL (8.8-10.2); CARBON DIOXIDE LEVEL 26 MEQ/L (21-32); CHLORIDE LEVEL 100 MEQ/L (98-107); CREATININE FOR GFR 0.47 MG/DL (0.55-1.30); GLOMERULAR FILTRATION RATE > 60.0 (>39); GLUCOSE, FASTING 75 MG/DL (70-100); MAGNESIUM LEVEL 1.4 MG/DL (1.8-2.4); POTASSIUM SERUM 4.4 MEQ/L (3.5-5.1); SODIUM LEVEL 132 MEQ/L (136-145)
--- NOTE | 2020-03-24 08:54 | ECGEPIP ---
[facility] - ED Test Date: 2020-03-23 Pat Name: LASHAWN MCDANIELS Department: Room: - Gender: Female Chief Credit Officer: : 1940 Requested By: TRINA Larose Order Number: [id number] Reading MD: Agnes Hernandez Measurements Intervals [place] Rate: 117 P: MT: 0 QRS: -8 QRSD: 84 T: 194 QT: 307 QTc: 429 Interpretive Statements ATRIAL FIBRILLATION WITH RAPID VENTRICULAR RESPONSE POSSIBLE ANTERIOR MYOCARDIAL INFARCTION, OF INDETERMINATE AGE NSTTW abnormalities LOW VOLTAGE LIMB SIMILAR 03/19/20 Electronically Signed on 03-24-2020 8:54:09 EDT by Agnes Hernandez
[2020-03-24] MEDS: APIXABAN 5 MG TAB (ELIQUIS) PO SCH ×2 (10:42→20:33)
[2020-03-24] MEDS: MULTIVITAMINS/MINERALS THERAP 1 TAB PO SCH (10:42)
[2020-03-24] MEDS: SERTRALINE HCL 50 MG TAB PO SCH (10:42)
[2020-03-24] MEDS: OMEPRAZOLE 20 MG CAP PO SCH ×2 (10:42→20:33)
[2020-03-24] MEDS: atenoloL 25 MG TAB PO SCH (10:44)
[2020-03-24 11:30] LABS: PHOSPHORUS LEVEL 3.1 MG/DL (2.5-4.9)
[2020-03-24] MEDS ORDERED: MAG SULF 1GM/100ML (MAG RUN) 1 GM in IV 1 EA IV ONE (11:45)
[2020-03-24 14:00] VITALS: BP 100/69
--- NOTE | 2020-03-24 18:54 | IPNPDOC ---
Date Seen The patient was seen on 03/24/20. Progress Note SUBJECTIVE: No issues reported overnight. Patient has no complaints this morning. She denies any abdominal pain. She feels very weak. She worked with PT today who deemed her unsafe for discharge at this time. OBJECTIVE PHYSICAL EXAMINATION: Vitals: (see below) General: Pale appearing female in no acute distress, laying comfortably in bed. HEENT: Normocephalic, atraumatic. EOMI. No scleral icterus. dry mucous membranes. No pharyngeal erythema or uvular deviation. Neck: No JVD, lymphadenopathy, or thyromegaly. Cardiac: RRR, Normal S1 and S2, No murmurs, gallops, rubs. Pulm: Clear to auscultation b/l. Symmetric thorax. No wheezing, crackles, rhonchi Abd: Bowel Sounds present. Abdomen is soft, non-tender, non-distended. No guarding, rebound tenderness, or rigidity. No hepatosplenomegaly. No masses or eccymosis. Drain is present in RLQ Ext: 2+ pitting edema up to knees in bilateral LE, no cyanosis Vascular: Capillary refill ~3seconds Neuro: No focal neuro deficits. AOx3 LABORATORY DATA: See below. MICROBIOLOGY: Please see below. ASSESSMENT/PLAN: Chrissy Zayas is a 80 YO F with history of CVA and recent perforated diverticuli who presents less than 24h after discharge with weakness and abdominal pain found to have hypokalemia and lactic acidosis likely 2/2 dehydration. #Lactic acidosis 2/2 dehydration -Lactic acid normalized to 1.3 -S/p 1 dose Ertapenem in ED -S/p 1L NS in ED, will hold off on any further fluid resuscitation due to her elevated R-sided pressures #?New hydronephrosis found on CT abd/pelvis: -Will order UA, reflex to culture -WBC 21. Will plan to cover with abx but at this time patient is asymptomatic with vitals stable #Recent history perforated viscous 2/2 perforated diverticuli -Continue Cipro and Flagyl x10 days -Will have drain removed by IR tomorrow #. Hyponatremia - Likely secondary to decreased PO intake, dehydration #. Hypokalemia - Likely secondary to dehydration and decreased PO intake. - Potassium replaced #. Afib - Continue Eliquis - Continue atenolol for rate control #. Hypothyroidism -Continue synthroid #. GERD -Continue oral Omeprazole #. Depression/anxiety -Continue Sertraline #. Hypercholesterolemia - Continue statin #. Dementia -Holding home donepezil due to long QT warning from Cipro interaction -DVT prophy: on Eliquis Attending attestation: I evaluated and examined the patient in person; I discussed the care with Resident in detail and agree with the plan above. VS, I&O, 24H, Fishbone Vital Signs/I&O Vital Signs Date Time Temp Pulse Resp B/P (MAP) Pulse Ox O2 Delivery O2 Flow Rate FiO2 03/24/20 14:00 97.2 104 18 100/69 (79) 96 Room Air I&O- Last 24 Hours up to 6 AM 03/24/20 06:00 Intake Total 1350 ml Output Total 320 ml Balance 1030 ml Laboratory Data 24H LABS Laboratory Tests 2 03/24/20 07:30: Nucleated Red Blood Cells % (auto) 0.0, Anion Gap 6L, Glomerular Filtration Rate > 60.0, Calcium Level 7.8L, Phosphorus Level 3.1, Magnesium Level 1.4L CBC/BMP Laboratory Tests 03/24/20 07:30 Microbiology Microbiology 03/23/20 Blood Culture - Preliminary, Resulted No growth after 24 hours . All specim... 03/23/20 Blood Culture - Preliminary, Resulted No growth after 24 hours . All specim... GME ATTESTATION GME ATTESTATION My faculty preceptor for this patient encounter was physically present during the encounter and was fully available. All aspects of the patient interview, examination, medical decision making process, and medical care plan development were reviewed and approved by the faculty preceptor. The faculty preceptor is aware and concurs with the plan as stated in the body of this note and will attest to such by his/her cosignature. HEIDI MATUTE MD March 24, 2020 18:54 NATI OLIVER MD March 26, 2020 16:15
[2020-03-24] MEDS: ATORVASTATIN 20 MG TAB PO SCH (20:33)
[2020-03-24 22:00] VITALS: BP 125/87
[2020-03-25 05:00] VITALS: BP 100/70
[2020-03-25] MEDS: metroNIDAZOLE (FLAGYL) 500 MG TAB PO SCH ×3 (05:25→21:15)
[2020-03-25] MEDS: LEVOTHYROXINE 50MCG TABLET (0.05MG) PO SCH (05:25)
[2020-03-25] MEDS: CIPROFLOXACIN 500MG TABLET PO SCH ×2 (05:25→18:20)
[2020-03-25 06:27] LABS: HEMATOCRIT 26.9 % (36.0-47.0); HEMOGLOBIN 9.1 g/dl (12.0-15.5); MEAN CORPUSCULAR HEMOGLOBIN 27.7 pg (27.0-33.0); MEAN CORPUSCULAR HGB CONC 33.8 g/dl (32.0-36.5); MEAN CORPUSCULAR VOLUME 81.8 fl (80.0-96.0); PLATELET COUNT, AUTOMATED 473 10^3/uL (150-450); RED BLOOD COUNT 3.29 10^6/uL (4.00-5.40); WHITE BLOOD COUNT 13.7 10^3/uL (4.0-10.0)
[2020-03-25 06:52] LABS: BLOOD UREA NITROGEN 10 MG/DL (7-18); CARBON DIOXIDE LEVEL 27 MEQ/L (21-32); CHLORIDE LEVEL 100 MEQ/L (98-107); CREATININE FOR GFR 0.53 MG/DL (0.55-1.30); GLOMERULAR FILTRATION RATE > 60.0 (>39); GLUCOSE, FASTING 89 MG/DL (70-100); MAGNESIUM LEVEL 1.6 MG/DL (1.8-2.4); SODIUM LEVEL 134 MEQ/L (136-145)
[2020-03-25 08:00] VITALS: BP 113/65
[2020-03-25] MEDS: atenoloL 25 MG TAB PO SCH ×2 (09:00→09:56)
[2020-03-25] MEDS: MULTIVITAMINS/MINERALS THERAP 1 TAB PO SCH (09:52)
[2020-03-25] MEDS: OMEPRAZOLE 20 MG CAP PO SCH ×2 (09:53→21:15)
[2020-03-25] MEDS: SERTRALINE HCL 50 MG TAB PO SCH (09:53)
[2020-03-25] MEDS: MAG SULF 1GM/100ML (MAG RUN) 1 GM in IV 1 EA IV SCH ×3 (09:56→12:07)
[2020-03-25] MEDS: APIXABAN 5 MG TAB (ELIQUIS) PO SCH ×2 (09:56→21:15)
[2020-03-25 14:00] VITALS: BP 109/53
--- NOTE | 2020-03-25 15:09 | DS.PDOC ---
Discharge Summary General Date of Admission March 23, 2020 at 14:29 Date of Discharge March 25, 2020 Primary Care Physician: Lynette Wilcox Attending Physician: NATI OLIVER MD Discharge Summary PROCEDURES PERFORMED DURING STAY: [None]. ADMITTING DIAGNOSES: 1. dehydration 2. Lactic acidosis 3. ?Hydronephrosis DISCHARGE DIAGNOSES: 1. Deconditioning COMPLICATIONS/CHIEF COMPLAINT: Dehydration,Hypokalemia. HISTORY OF PRESENT ILLNESS: Chrissy Zayas is a 80 YO F with history of CVA 2/2 PFO, recent hospitalization for perforated viscous who presents the day after her discharge via EMS for weakness and abdominal pain this morning. Her daughter Sarah (primary satellite tv technician) states that she woke up this morning feeling very weak, unable to ascend 4 stairs and get to the bathroom on her own. She was found to be very sweaty and complained of severe abdominal pain. On the last hospitalization, she presented complaining of a fall and diarrhea and was found to have abdominal free air and a 4.9cm abscess in the RLQ that was drained by IR. The drain is still in place. She reports feeling "hot" and her abdominal pain on presentation is 4/10. She denies any nausea/vomiting or diarrhea at this time. HOSPITAL COURSE: The patient was admitted with presumed dehydration and weakness 2/2 severe protein-calorie malnutrition. Daughter noted she was very weak at ho al and unable to ascend 4 stairs. The patient had no complaints on admission but was found to have lactic acidosis. She was given gentle fluid rescusciation. Both antibiotic courses from previous hospitalization were continued. She underwent PT/OT evaluation and was determined safe for discharge home with services. She was also determined to need a rolling walker for safe ambulation at discharge. DISCHARGE MEDICATIONS: Please see below. ALLERGIES: Please see below. PHYSICAL EXAMINATION ON DISCHARGE: VITAL SIGNS: Please see below. General: Pale appearing female in no acute distress, laying comfortably in bed. HEENT: Normocephalic, atraumatic. EOMI. No scleral icterus. dry mucous membran es. No pharyngeal erythema or uvular deviation. Neck: No JVD, lymphadenopathy, or thyromegaly. Cardiac: RRR, Normal S1 and S2, No murmurs, gallops, rubs. Pulm: Clear to auscultation b/l. Symmetric thorax. No wheezing, crackles, rhonchi Abd: Bowel Sounds present. Abdomen is soft, non-tender, non-distended. No guarding, rebound tenderness, or rigidity. No hepatosplenomegaly. No masses or eccymosis. Drain is present in RLQ Ext: 2+ pitting edema up to knees in bilateral LE, no cyanosis Vascular: Capillary refill ~3seconds Neuro: No focal neuro deficits. AOx3 LABORATORY DATA: Please see below. IMAGING: CT ABD/PELVIS: REASON: Abdominal pain and hypotension. COMPARISON: 03/16/2020 CONTRAST: 100 mL [id number]. There is no change in the lung bases. The gallbladder is somewhat hydropic, essentially unchanged. The free intraperitoneal air seen on the prior exam has, for the most part, resolved with the minimal most residual suspected. The liver and spleen are unchanged. The pancreas and adrenal glands are unchanged. The left kidney is unchanged and again seen to be within normal limits. Since the last exam, moderate right-sided hydronephrosis and proximal hydroureter have developed. Within the right ureter at the level of and just distal to the iliac crest, there is a possible ureterolith. There are extensive soft tissue calcifications in that region, which are unchanged. There is no change in the abdominal aorta or para-aortic regions. A few gas- and fluid-filled nondilated small bowel loops are seen in the abdomen and pelvis. The free pelvic fluid seen previously has gotten slightly smaller. There is a surgical drainage tube in the abdomen on the left draining a previously present abscess. The phlegmonous material seen in that region is much less today. 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 There is no change in the osseous structures. IMPRESSION: 1. Status post surgical drainage tube placement, as described above. There has been improvement in the appearance of the abscess and phlegmonous material. Small amount of free fluid persists in the pelvis, and there is a tiny amount of suspected free intraperitoneal air. A mild ileus is suspected. 2. There is new right-sided hydronephrosis and proximal hydroureter, and whether or not that is secondary to inflammatory change in the lower abdomen and upper pelvis or secondary to a small ureterolith, cannot be stated with certainty by this exam. Followup is recommended. Delayed contrast-enhanced imaging may be helpful if clinically relevant. 3. Other findings as described above. PROGNOSIS: fair ACTIVITY: [As tolerated]. DIET: as tolerated DISCHARGE PLAN: Home with services DISPOSITION: . DISCHARGE INSTRUCTIONS: 1. Follow up with PCP within 7 days ITEMS TO FOLLOWUP ON ON OUTPATIENT: None DISCHARGE CONDITION: [Stable]. TIME SPENT ON DISCHARGE: Greater than 35 minutes. Attending attestation: I evaluated and examined the patient in person; I discussed the care with Resident in detail and agree with the plan above. Vital Signs/I&Os Vital Signs Date Time Temp Pulse Resp B/P (MAP) Pulse Ox O2 Delivery O2 Flow Rate FiO2 03/25/20 09:00 90 86/66 03/25/20 08:00 I&O- Last 24 Hours up to 6 AM 03/25/20 05:59 Intake Total 950 ml Output Total 500 ml Balance 450 ml Laboratory Data Labs 24H Laboratory Tests 2 03/25/20 05:57: Nucleated Red Blood Cells % (auto) 0.0, Anion Gap 7L, Glomerular Filtration Rate > 60.0, Calcium Level 8.0L, Magnesium Level 1.6L CBC/BMP Laboratory Tests 03/25/20 05:57 Microbiology Microbiology 03/23/20 Blood Culture - Preliminary, Resulted No Growth after 48 hours. All Specime... 03/23/20 Blood Culture - Preliminary, Resulted No Growth after 48 hours. All Specime... Discharge Medications Scheduled Apixaban (Eliquis) 5 Mg Tablet, 5 MG PO BID, (Reported) Atenolol (Atenolol) 25 Mg Tablet, 25 MG PO DAILY, (Reported) Atorvastatin Calcium (Atorvastatin Calcium) 40 Mg Tab, 40 MG PO QHS, (Reported) Ciprofloxacin HCl (Ciprofloxacin HCl) 500 Mg Tablet, 500 MG PO BID, (Reported) FILLED 03/22/20 FOR 10 DAYS Donepezil HCl (Donepezil HCl) 10 Mg Tablet, 10 MG PO QHS, (Reported) Furosemide (Lasix) 40 Mg Tablet, 40 MG PO DAILY, (Reported) Levothyroxine Sodium (Levothyroxine Sodium) 50 Mcg Tab, 50 MCG PO DAILY, (Reported) Metronidazole (Flagyl) 500 Mg Tablet, 500 MG PO Q8H, (Reported) FILLED 03/22/20 FOR 10 DAYS Multivitamins (Thera M Plus Tablet) 1 Tab Tab, 1 TAB PO DAILY, (Reported) Omeprazole (Omeprazole) 20 Mg Cap, 20 MG PO BID, (Reported) Sertraline HCl (Sertraline HCl) 50 Mg Tablet, 50 MG PO DAILY, (Reported) Allergies Coded Allergies: No Known Allergies (Unverified , 03/23/20) GME ATTESTATION GME ATTESTATION My faculty preceptor for this patient encounter was physically present during the encounter and was fully available. All aspects of the patient interview, examination, medical decision making process, and medical care plan development were reviewed and approved by the faculty preceptor. The faculty preceptor is aware and concurs with the plan as stated in the body of this note and will attest to such by his/her cosignature. HEIDI MATUTE MD March 25, 2020 15:09 NATI OLIVER MD March 26, 2020 16:24
[2020-03-25] MEDS: ATORVASTATIN 20 MG TAB PO SCH (21:15)
[2020-03-25 22:00] VITALS: BP 123/81
[2020-03-26] MEDS: CIPROFLOXACIN 500MG TABLET PO SCH ×2 (05:49→17:33)
[2020-03-26] MEDS: LEVOTHYROXINE 50MCG TABLET (0.05MG) PO SCH (05:49)
[2020-03-26] MEDS: metroNIDAZOLE (FLAGYL) 500 MG TAB PO SCH ×3 (05:49→21:00)
[2020-03-26 06:00] VITALS: BP 124/84
[2020-03-26 06:06] LABS: HEMATOCRIT 26.1 % (36.0-47.0); HEMOGLOBIN 8.8 g/dl (12.0-15.5); MEAN CORPUSCULAR HEMOGLOBIN 27.5 pg (27.0-33.0); MEAN CORPUSCULAR HGB CONC 33.7 g/dl (32.0-36.5); MEAN CORPUSCULAR VOLUME 81.6 fl (80.0-96.0); PLATELET COUNT, AUTOMATED 486 10^3/uL (150-450); WHITE BLOOD COUNT 14.6 10^3/uL (4.0-10.0)
[2020-03-26 06:33] LABS: BLOOD UREA NITROGEN 10 MG/DL (7-18); CALCIUM LEVEL 8.4 MG/DL (8.8-10.2); CARBON DIOXIDE LEVEL 28 MEQ/L (21-32); CHLORIDE LEVEL 98 MEQ/L (98-107); CREATININE FOR GFR 0.52 MG/DL (0.55-1.30); GLOMERULAR FILTRATION RATE > 60.0 (>39); GLUCOSE, FASTING 92 MG/DL (70-100); MAGNESIUM LEVEL 1.8 MG/DL (1.8-2.4); POTASSIUM SERUM 3.8 MEQ/L (3.5-5.1); SODIUM LEVEL 132 MEQ/L (136-145)
[2020-03-26] MEDS: APIXABAN 5 MG TAB (ELIQUIS) PO SCH ×2 (10:07→20:58)
[2020-03-26] MEDS: SERTRALINE HCL 50 MG TAB PO SCH (10:07)
[2020-03-26] MEDS: MULTIVITAMINS/MINERALS THERAP 1 TAB PO SCH (10:07)
[2020-03-26] MEDS: OMEPRAZOLE 20 MG CAP PO SCH ×2 (10:07→20:58)
[2020-03-26] MEDS: atenoloL 25 MG TAB PO SCH (10:28)
--- NOTE | 2020-03-26 11:48 | IPNPDOC ---
Date Seen The patient was seen on 03/26/20. Progress Note SUBJECTIVE: No issues reported overnight. Patient has no complaints this morning. She denies any abdominal pain. She feels very weak. Her disposition is yet to be determined as family does not feel comfortable taking the patient home at this time. OBJECTIVE PHYSICAL EXAMINATION: Vitals: (see below) General: Pale appearing female in no acute distress, laying comfortably in bed. HEENT: Normocephalic, atraumatic. EOMI. No scleral icterus. dry mucous membranes. No pharyngeal erythema or uvular deviation. Neck: No JVD, lymphadenopathy, or thyromegaly. Cardiac: RRR, Normal S1 and S2, No murmurs, gallops, rubs. Pulm: Clear to auscultation b/l. Symmetric thorax. No wheezing, crackles, rhon chi Abd: Bowel Sounds present. Abdomen is soft, non-tender, non-distended. No guarding, rebound tenderness, or rigidity. No hepatosplenomegaly. No masses or eccymosis. Drain is present in RLQ Ext: 2+ pitting edema up to knees in bilateral LE, no cyanosis Vascular: Capillary refill ~3seconds Neuro: No focal neuro deficits. AOx3 LABORATORY DATA: See below. MICROBIOLOGY: Please see below. ASSESSMENT/PLAN: Chrissy Zayas is a 80 YO F with history of CVA and recent perforated diverticuli who presents less than 24h after discharge with weakness and abdominal pain found to have hypokalemia and lactic acidosis likely 2/2 dehydration. #Lactic acidosis 2/2 dehydration -Lactic acid normalized to 1.3 -S/p 1 dose Ertapenem in ED -S/p 1L NS in ED, will hold off on any further fluid resuscitation due to her elevated R-sided pressures #?New hydronephrosis found on CT abd/pelvis: -UA ordered -WBC 21. Will plan to cover with abx but at this time patient is asymptomatic with vitals stable #Recent history perforated viscous 2/2 perforated diverticuli -Continue Cipro and Flagyl x10 days -drain removed yesterday #. Hyponatremia - Likely secondary to decreased PO intake, dehydration #. Hypokalemia: resolved - Likely secondary to dehydration and decreased PO intake. #. Afib - Continue Eliquis - Continue atenolol for rate control #. Hypothyroidism -Continue synthroid #. GERD -Continue oral Omeprazole #. Depression/anxiety -Continue Sertraline #. Hypercholesterolemia - Continue statin #. Dementia -Holding home donepezil due to long QT warning from Cipro interaction -DVT prophy: on Eliquis Attending attestation: I evaluated and examined the patient in person; I discussed the care with Resident in detail and agree with the plan above. VS, I&O, 24H, Fishbone Vital Signs/I&O Vital Signs Date Time Temp Pulse Resp B/P (MAP) Pulse Ox O2 Delivery O2 Flow Rate FiO2 03/26/20 06:00 96.4 105 18 124/84 (97) 96 Room Air l I&O- Last 24 Hours up to 6 AM 03/26/20 06:00 Intake Total 1247 ml Output Total 400 ml Balance 847 ml Laboratory Data 24H LABS Laboratory Tests 2 03/26/20 05:23: Nucleated Red Blood Cells % (auto) 0.0, Anion Gap 6L, Glomerular Filtration Rate > 60.0, Calcium Level 8.4L, Magnesium Level 1.8 CBC/BMP Laboratory Tests 03/26/20 05:23 Microbiology Microbiology 03/23/20 Blood Culture - Preliminary, Resulted No Growth after 72 hours. All specime... 03/23/20 Blood Culture - Preliminary, Resulted No Growth after 72 hours. All specime... GME ATTESTATION GME ATTESTATION My faculty preceptor for this patient encounter was physically present during the encounter and was fully available. All aspects of the patient interview, examination, medical decision making process, and medical care plan development were reviewed and approved by the faculty preceptor. The faculty preceptor is aware and concurs with the plan as stated in the body of this note and will attest to such by his/her cosignature. HEIDI MATUTE MD March 26, 2020 11:48 NATI OLIVER MD March 26, 2020 16:30
[2020-03-26 14:00] VITALS: BP 101/78
--- NOTE | 2020-03-26 14:09 | MHCRPDOC ---
[facility] Consultation Consultation patient not able to be seen tonight for consult due to equipment prioierty from ER by report from nursing, will do f2f for capacity eval, from discussion with providers, low acuity will try agian tomorrow to arrange for consultation Vital Signs Vital Signs Date Time Temp Pulse Resp B/P (MAP) Pulse Ox O2 Delivery O2 Flow Rate FiO2 03/26/20 06:00 96.4 105 18 124/84 (97) 96 Room Air Laboratory Data 24H Labs Laboratory Tests 2 03/26/20 05:23: Nucleated Red Blood Cells % (auto) 0.0, Anion Gap 6L, Glomerular Filtration Rate > 60.0, Calcium Level 8.4L, Magnesium Level 1.8 Home Medications Current Medications Current Medications Medications (Trade) Dose Ordered Sig/Sunny Route PRN Reason Start Time Stop Time Status Last Admin Dose Admin Apixaban (Eliquis) 5 mg BID PO 03/23/20 21:00 03/26/20 10:07 Atenolol (Tenormin) 25 mg DAILY PO 03/23/20 09:00 03/23/20 16:13 DC Atenolol (Tenormin) 25 mg DAILY PO 03/23/20 16:15 03/24/20 10:44 Atorvastatin Calcium (Lipitor) 40 mg QHS PO 03/23/20 21:00 03/25/20 21:15 Ciprofloxacin (Cipro) 500 mg BID@0600,1800 PO 03/23/20 18:00 03/26/20 05:49 Donepezil HCl (AriCEPT) 10 mg QHS PO 03/23/20 21:00 03/23/20 15:38 DC Home Med (Med Rec Complete!) ASDIRECTED XX 03/23/20 11:45 03/23/20 11:44 DC Levothyroxine Sodium (Synthroid) 50 mcg DAILY@0600 PO 03/24/20 06:00 03/26/20 05:49 Magnesium Sulfate/ Dextrose 1 gm/IV Miscellaneous Supplies 100 ml @ 100 mls/hr Q1H IV 03/25/20 09:00 03/25/20 11:59 DC 03/25/20 12:07 Metronidazole (Flagyl) 500 mg Q8H PO 03/23/20 22:00 03/26/20 05:49 Multivitamins (Theragram-M) 1 tab DAILY PO 03/24/20 09:00 03/26/20 10:07 Omeprazole (PriLOSEC) 20 mg BID PO 03/23/20 21:00 03/26/20 10:07 Sertraline HCl (Zoloft) 50 mg DAILY PO 03/23/20 09:00 03/26/20 10:07 Sodium Chloride 1,000 ml @ 150 mls/hr Q6H40M IV 03/23/20 10:30 03/23/20 15:40 DC 03/23/20 10:50 Scheduled Apixaban (Eliquis) 5 Mg Tablet, 5 MG PO BID, (Reported) Atenolol (Atenolol) 25 Mg Tablet, 25 MG PO DAILY, (Reported) Atorvastatin Calcium (Atorvastatin Calcium) 40 Mg Tab, 40 MG PO QHS, (Reported) Ciprofloxacin HCl (Ciprofloxacin HCl) 500 Mg Tablet, 500 MG PO BID, (Reported) FILLED 03/22/20 FOR 10 DAYS Donepezil HCl (Donepezil HCl) 10 Mg Tablet, 10 MG PO QHS, (Reported) Furosemide (Lasix) 40 Mg Tablet, 40 MG PO DAILY, (Reported) Levothyroxine Sodium (Levothyroxine Sodium) 50 Mcg Tab, 50 MCG PO DAILY, (Reported) Metronidazole (Flagyl) 500 Mg Tablet, 500 MG PO Q8H, (Reported) FILLED 03/22/20 FOR 10 DAYS Multivitamins (Thera M Plus Tablet) 1 Tab Tab, 1 TAB PO DAILY, (Reported) Omeprazole (Omeprazole) 20 Mg Cap, 20 MG PO BID, (Reported) Sertraline HCl (Sertraline HCl) 50 Mg Tablet, 50 MG PO DAILY, (Reported) Allergies Coded Allergies: No Known Allergies (Unverified , 03/23/20) INGA HANDLEY DO March 26, 2020 14:09
[2020-03-26] MEDS: ATORVASTATIN 20 MG TAB PO SCH (20:58)
[2020-03-26 22:00] VITALS: BP 113/74
[2020-03-27] MEDS: metroNIDAZOLE (FLAGYL) 500 MG TAB PO SCH ×3 (05:43→21:03)
[2020-03-27] MEDS: LEVOTHYROXINE 50MCG TABLET (0.05MG) PO SCH (05:43)
[2020-03-27] MEDS: CIPROFLOXACIN 500MG TABLET PO SCH ×2 (05:43→17:09)
[2020-03-27 06:00] VITALS: BP 119/82
[2020-03-27] MEDS: OMEPRAZOLE 20 MG CAP PO SCH ×2 (08:28→21:03)
[2020-03-27] MEDS: MULTIVITAMINS/MINERALS THERAP 1 TAB PO SCH (08:28)
[2020-03-27] MEDS: SERTRALINE HCL 50 MG TAB PO SCH (08:28)
[2020-03-27] MEDS: APIXABAN 5 MG TAB (ELIQUIS) PO SCH ×2 (08:29→21:03)
[2020-03-27] MEDS: atenoloL 25 MG TAB PO SCH (08:30)
--- NOTE | 2020-03-27 10:38 | MHCRPDOC ---
[facility] Consultation Consultation Consult Chrissy Zayas MRN: N/A Date of : N/A Date of Service: 03/27/2020 Chief Complaint Consultation for capacity. History of Present Illness The patient a 80-year-old woman with a history of reported multiple medical problems presents to [facility] after multiple failure to thrive. A capacity consult is asked as reportedly her daughter is quite insistent that she be evaluated for capacity despite the medical teams belief that she does have capacity. It appears that the family had been obstructing her discharge by refusing to give the patient her keys as they insist that she needs to go to a full term facility such as an SNF. However, PT and OT evaluate the patient and s he is rated at independent care making her both ineligible and inappropriate for this. When I met with the patient she was somewhat surprised about the capacity consult, however, she was able to relay parts of her care and her wants and needs. She has no history of psychiatric problems or complaints and generally had an unremarkable exam. Review Of Systems Depression: The patient denies any episodes of unprovoked depressed mood associated with neurovegetative symptoms lasting longer than 2 weeks with sympto ms present nearly everyday. Anxiety: The patient denies any excessive worry associated with physical symptoms. They deny any experience of discreet panic in the past. Angela: The patient denies any episodes of euphoria/dysphoria associated with decreased need for sleep, hedonism, talkatively or impulsivity lasting longer than 5 days. Psychotic: The patient denies any experiences of auditory or visual hallucinations. They deny any episodes of paranoia or delusional thinking in the past Trauma: The patient denies any traumatic events associated with nightmares or intrusive thoughts. Borderline: The patient screens negative for borderline personality at this junction. Past Psychiatric History The patient reports no history of psychiatric admissions, medication trials or current follow up. Family Psychiatric History The patient denies/is unaware any history of mental health history including addictions and suicide. Social History Grew up in the local area, no history of trauma or abuse. 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 Prior to that had been living alone and prior to that had two husbands that have before her. Medical History Has a history of cardiovascular mortality and morbidity rate and age-related problems. Reported history of dementia but unclear how diagnosis was made. Allergies See below Mental Status Examination General: Well dressed with good hygiene Speech: Spontaneous and fluid Thought processes: Linear and logical MSK: Smooth and coordinated gait, no signs of tremors or involuntary orofacial movements Thought content: Future orientated Abstract reasoning, and computation: Intact Description of associations: Intact Description of abnormal or psychotic thoughts: Denies any suicidal or homicidal ideation. Denies any auditory or visual hallucinations. Does not appear to be responding to internal stimuli. Does not appear to be endorsing any bizarre or paranoid ideation. Judgment: fair Insight: fair Orientation: Alert and orientated 3 Cognition: Grossly normal Recent and remote memory: Intact Attention span and concentration: Intact Fund of knowledge: Adequate Mood: "okay" Affect: Euthymic with a full range Diagnoses Evaluation for capacity. Assessment and Plan The patient a 80-year-old woman is assessed for capacity at the question/concern of the family. The primary team believes the patient does have capacity to unde rstand the risks and benefits of going home alone and given her PT and OT evaluations that she is able to take care of herself and that her capacity is not in question from their side. I would agree with the medicines team that she does have capacity for u nderstanding this particular question. I believe probably the family is not understanding a part of her care and that there is not significant reason to question her capacity at this time. I had recommended ethics consult due to the complicated problem related to the family. Elements of capacity 1. Communicate a consistent choice: Patient has consistently reported that she wants to go home and does not want to go to a Group Home Facility especially if there is no reason. 2. Retain elements of her care: Patient is able to retain basic elements of her care as to what she is being treated for and the basic parts of her prognosis. 3. Appreciate the gravity of her situation: The patient is able to appreciate the gravity of her care at this time and her aftercare plans in my opinion. 4. Manipulate information rationally: The patient is able to manipulate information rationally, plan and abstract situations and able to relay different hypothetical scenarios and how this would alter her thought process in logical ways. Disposition No further psychiatric care warranted at this time, recommend ethics consult. Time Spent 45 minutes. Sunday Vital Signs Vital Signs Date Time Temp Pulse Resp B/P (MAP) Pulse Ox O2 Delivery O2 Flow Rate FiO2 5/9/20 08:30 105 119/83 03/27/20 06:00 96.8 18 97 Room Air Home Medications Current Medications Current Medications Medications (Trade) Dose Ordered Sig/Sunny Route PRN Reason Start Time Stop Time Status Last Admin Dose Admin Acetaminophen (Tylenol Tab) 650 mg Q6HP PRN PO PAIN / FEVER 03/27/20 10:30 Apixaban (Eliquis) 5 mg BID PO 03/23/20 21:00 03/27/20 08:29 Atenolol (Tenormin) 25 mg DAILY PO 03/23/20 09:00 03/23/20 16:13 DC Atenolol (Tenormin) 25 mg DAILY PO 03/23/20 16:15 03/27/20 08:30 Atorvastatin Calcium (Lipitor) 40 mg QHS PO 03/23/20 21:00 03/26/20 20:58 Ciprofloxacin (Cipro) 500 mg BID@0600,1800 PO 03/23/20 18:00 03/27/20 05:43 Donepezil HCl (AriCEPT) 10 mg QHS PO 03/23/20 21:00 03/23/20 15:38 DC Home Med (Med Rec Complete!) ASDIRECTED XX 03/23/20 11:45 03/23/20 11:44 DC Levothyroxine Sodium (Synthroid) 50 mcg DAILY@0600 PO 03/24/20 06:00 03/27/20 05:43 Magnesium Sulfate/ Dextrose 1 gm/IV Miscellaneous Supplies 100 ml @ 100 mls/hr Q1H IV 03/25/20 09:00 03/25/20 11:59 DC 03/25/20 12:07 Metronidazole (Flagyl) 500 mg Q8H PO 03/23/20 22:00 03/27/20 05:43 Multivitamins (Theragram-M) 1 tab DAILY PO 03/24/20 09:00 03/27/20 08:28 Omeprazole (PriLOSEC) 20 mg BID PO 03/23/20 21:00 03/27/20 08:28 Sertraline HCl (Zoloft) 50 mg DAILY PO 03/23/20 09:00 03/27/20 08:28 Sodium Chloride 1,000 ml @ 150 mls/hr Q6H40M IV 03/23/20 10:30 03/23/20 15:40 DC 03/23/20 10:50 Scheduled Apixaban (Eliquis) 5 Mg Tablet, 5 MG PO BID, (Reported) Atenolol (Atenolol) 25 Mg Tablet, 25 MG PO DAILY, (Reported) Atorvastatin Calcium (Atorvastatin Calcium) 40 Mg Tab, 40 MG PO QHS, (Reported) Ciprofloxacin HCl (Ciprofloxacin HCl) 500 Mg Tablet, 500 MG PO BID, (Reported) FILLED 03/22/20 FOR 10 DAYS Donepezil HCl (Donepezil HCl) 10 Mg Tablet, 10 MG PO QHS, (Reported) Furosemide (Lasix) 40 Mg Tablet, 40 MG PO DAILY, (Reported) Levothyroxine Sodium (Levothyroxine Sodium) 50 Mcg Tab, 50 MCG PO DAILY, (Reported) Metronidazole (Flagyl) 500 Mg Tablet, 500 MG PO Q8H, (Reported) FILLED 03/22/20 FOR 10 DAYS Multivitamins (Thera M Plus Tablet) 1 Tab Tab, 1 TAB PO DAILY, (Reported) Omeprazole (Omeprazole) 20 Mg Cap, 20 MG PO BID, (Reported) Sertraline HCl (Sertraline HCl) 50 Mg Tablet, 50 MG PO DAILY, (Reported) Allergies Coded Allergies: No Known Allergies (Unverified , 03/23/20) INGA HANDLEY DO March 27, 2020 10:38
[2020-03-27] MEDS: ACETAMINOPHEN TAB 650MG DOSE (2X325MG) PO PRN (11:01)
--- NOTE | 2020-03-27 13:08 | IPNPDOC ---
Date Seen The patient was seen on 03/27/20. Progress Note SUBJECTIVE: No issues reported overnight. Patient has no complaints this morning. She denies any abdominal pain. She was evaluated by psychiatry who determined that the patient does have capacity to make her own decisions at this time. OBJECTIVE PHYSICAL EXAMINATION: Vitals: (see below) General: Pale appearing female in no acute distress, laying comfortably in bed. HEENT: Normocephalic, atraumatic. EOMI. No scleral icterus. dry mucous membranes. No pharyngeal erythema or uvular deviation. Neck: No JVD, lymphadenopathy, or thyromegaly. Cardiac: RRR, Normal S1 and S2, No murmurs, gallops, rubs. Pulm: Clear to auscultation b/l. Symmetric thorax. No wheezing, crackles, rhonchi Abd: Bowel Sounds present. Abdomen is soft, non-tender, non-distended. No guarding, rebound tenderness, or rigidity. No hepatosplenomegaly. No masses or eccymosis. Drain is present in RLQ Ext: 2+ pitting edema up to knees in bilateral LE, no cyanosis Vascular: Capillary refill ~3seconds Neuro: No focal neuro deficits. AOx3 LABORATORY DATA: See below. MICROBIOLOGY: Please see below. ASSESSMENT/PLAN: Chrissy Zayas is a 80 YO F with history of CVA and recent perforated diverticuli who presents less than 24h after discharge with weakness and abdominal pain found to have hypokalemia and lactic acidosis likely 2/2 dehydration. She is now medically stable but disposition pending as there is an issue with director construction services feeling unprepared to take her home. #Lactic acidosis 2/2 dehydration -Lactic acid normalized to 1.3 -S/p 1 dose Ertapenem in ED -S/p 1L NS in ED, will hold off on any further fluid resuscitation due to her elevated R-sided pressures #?New hydronephrosis found on CT abd/pelvis: -UA ordered -WBC 21. Will plan to cover with abx but at this time patient is asymptomatic with vitals stable #Recent history perforated viscous 2/2 perforated diverticuli -Continue Cipro and Flagyl x 10 days -drain removed yesterday #. Hyponatremia - Likely secondary to decreased PO intake, dehydration #. Hypokalemia: resolved - Likely secondary to dehydration and decreased PO intake. #. Afib - Continue Eliquis - Continue atenolol for rate control #. Hypothyroidism -Continue synthroid #. GERD -Continue oral Omeprazole #. Depression/anxiety -Continue Sertraline #. Hypercholesterolemia - Continue statin #. Dementia -Holding home donepezil due to long QT warning from Cipro interaction -DVT prophy: on Eliquis VS, I&O, 24H, Fishbone Vital Signs/I&O Vital Signs Date Time Temp Pulse Resp B/P (MAP) Pulse Ox O2 Delivery O2 Flow Rate FiO2 03/27/20 08:30 105 119/83 03/27/20 06:00 96.8 18 97 Room Air I&O- Last 24 Hours up to 6 AM 03/27/20 05:59 Intake Total 1137 ml Output Total 0 ml Balance 1137 ml Laboratory Data Microbiology Microbiology 03/23/20 Blood Culture - Preliminary, Resulted No Growth after 72 hours. All specime... 03/23/20 Blood Culture - Preliminary, Resulted No Growth after 72 hours. All specime... GME ATTESTATION GME ATTESTATION My faculty preceptor for this patient encounter was physically present during the encounter and was fully available. All aspects of the patient interview, examination, medical decision making process, and medical care plan development were reviewed and approved by the faculty preceptor. The faculty preceptor is aware and concurs with the plan as stated in the body of this note and will attest to such by his/her cosignature. HEIDI MATUTE MD March 27, 2020 13:08
[2020-03-27 14:00] VITALS: BP 84/49
[2020-03-27 14:55] VITALS: BP 126/65
[2020-03-27] MEDS: ATORVASTATIN 20 MG TAB PO SCH (21:03)
[2020-03-27 22:00] VITALS: BP 113/75
[2020-03-28] MEDS: metroNIDAZOLE (FLAGYL) 500 MG TAB PO SCH ×3 (05:32→21:00)
[2020-03-28] MEDS: CIPROFLOXACIN 500MG TABLET PO SCH ×2 (05:33→18:19)
[2020-03-28] MEDS: LEVOTHYROXINE 50MCG TABLET (0.05MG) PO SCH (05:33)
[2020-03-28 06:00] VITALS: BP 102/62
[2020-03-28] MEDS: APIXABAN 5 MG TAB (ELIQUIS) PO SCH ×2 (08:19→21:00)
[2020-03-28] MEDS: SERTRALINE HCL 50 MG TAB PO SCH (08:19)
[2020-03-28] MEDS: OMEPRAZOLE 20 MG CAP PO SCH ×2 (08:19→21:00)
[2020-03-28] MEDS: MULTIVITAMINS/MINERALS THERAP 1 TAB PO SCH (08:19)
[2020-03-28] MEDS: atenoloL 25 MG TAB PO SCH (08:21)
[2020-03-28 14:00] VITALS: BP 110/72
[2020-03-28] MEDS: ACETAMINOPHEN TAB 650MG DOSE (2X325MG) PO PRN (19:12)
--- NOTE | 2020-03-28 19:13 | IPNPDOC ---
Date Seen The patient was seen on 03/28/20. Progress Note SUBJECTIVE: 80-year-old female who was recently admitted for abdominal abscess secondary to perforated diverticulitis is readmitted for weakness/dehydration. Patient was treated with gentle hydration and continuation of home antibiotics with good clinical improvement and return to baseline. Patient has done well for over 48 hours, discharge planning has been an issue as patient's does not want her to go home. Physical therapy has evaluated and cleared the patient to go home with services. Planning for discharge home once social issue has been resolved. Patient comfortable in chair, without any complaints at this time. PHYSICAL EXAMINATION: VITAL SIGNS: Please see below. GENERAL: No distress HEENT: Normocephalic, atraumatic, moist mucous membranes NECK: Supple CARDIOVASCULAR EXAMINATION: S1, S2, no murmurs RESPIRATORY EXAMINATION: Clear to auscultation, no wheezing ABDOMINAL EXAMINATION: Soft, nontender, nondistended, positive bowel sounds EXTREMITIES: Range of motion intact SKIN: No rash NEUROLOGICAL EXAMINATION: no focal deficits PSYCHIATRIC EXAMINATION: Calm and cooperative LABORATORY DATA, IMAGING STUDIES, MICROBIOLOGY: Please see below. ASSESSMENT AND PLAN: 80-year-old female with recent admission for abdominal abscess secondary to perforated diverticulitis is readmitted for weakness/dehydration. PROBLEMS: 1. Weakness/dehydration: Treated with gentle IV hydration and physical therapy, patient is back to baseline, cleared for discharge home with services by physical therapy. Patient's daughter is refusing to take her home as she does not feel comfortable, plan for discharge when social issue has been resolved. 2. Abdominal abscess: Secondary to perforated diverticulitis, abdominal drain was placed by IR, has not been removed, continue Michael Gray to complete her course. 3. Atrial fibrillation: Continue Eliquis and atenolol 4. Hypothyroidism: Continue levothyroxine DVT prophylaxis: On Eliquis GI prophylaxis: PPI VS, I&O, 24H, Fishbone Vital Signs/I&O Vital Signs Date Time Temp Pulse Resp B/P (MAP) Pulse Ox O2 Delivery O2 Flow Rate FiO2 03/28/20 14:00 96.7 87 16 110/72 (85) 98 Room Air I&O- Last 24 Hours up to 6 AM 03/28/20 05:59 Intake Total 935 ml Output Total 300 ml Balance 635 ml Laboratory Data Microbiology Microbiology 03/23/20 Blood Culture - Final, Complete NO GROWTH AFTER 5 DAYS 03/23/20 Blood Culture - Final, Complete NO GROWTH AFTER 5 DAYS NATI OLIVER MD March 28, 2020 19:13
[2020-03-28] MEDS: ATORVASTATIN 20 MG TAB PO SCH (21:00)
[2020-03-28 22:00] VITALS: BP 111/75
[2020-03-29] MEDS: metroNIDAZOLE (FLAGYL) 500 MG TAB PO SCH ×2 (05:54→14:18)
[2020-03-29] MEDS: LEVOTHYROXINE 50MCG TABLET (0.05MG) PO SCH (05:54)
[2020-03-29] MEDS: CIPROFLOXACIN 500MG TABLET PO SCH (05:54)
[2020-03-29 06:00] VITALS: BP 117/81
[2020-03-29 06:45] LABS: HEMATOCRIT 29.9 % (36.0-47.0); HEMOGLOBIN 9.7 g/dl (12.0-15.5); MEAN CORPUSCULAR HEMOGLOBIN 26.9 pg (27.0-33.0); MEAN CORPUSCULAR HGB CONC 32.4 g/dl (32.0-36.5); MEAN CORPUSCULAR VOLUME 83.1 fl (80.0-96.0); PLATELET COUNT, AUTOMATED 512 10^3/uL (150-450); WHITE BLOOD COUNT 12.5 10^3/uL (4.0-10.0)
[2020-03-29 07:08] LABS: BLOOD UREA NITROGEN 9 MG/DL (7-18); CARBON DIOXIDE LEVEL 29 MEQ/L (21-32); CHLORIDE LEVEL 99 MEQ/L (98-107); CREATININE FOR GFR 0.58 MG/DL (0.55-1.30); GLOMERULAR FILTRATION RATE > 60.0 (>39); GLUCOSE, FASTING 78 MG/DL (70-100); MAGNESIUM LEVEL 1.7 MG/DL (1.8-2.4); POTASSIUM SERUM 3.7 MEQ/L (3.5-5.1); SODIUM LEVEL 134 MEQ/L (136-145)
[2020-03-29 09:00] VITALS: BP 94/63
[2020-03-29] MEDS: atenoloL 25 MG TAB PO SCH (09:00)
[2020-03-29] MEDS ORDERED: MAG SULF 1GM/100ML (MAG RUN) 1 GM in IV 1 EA IV ONE (09:00)
[2020-03-29] MEDS: OMEPRAZOLE 20 MG CAP PO SCH (10:00)
[2020-03-29] MEDS: SERTRALINE HCL 50 MG TAB PO SCH (10:00)
[2020-03-29] MEDS: MULTIVITAMINS/MINERALS THERAP 1 TAB PO SCH (10:00)
[2020-03-29] MEDS: APIXABAN 5 MG TAB (ELIQUIS) PO SCH (10:01)
[2020-03-29] MEDS: ACETAMINOPHEN TAB 650MG DOSE (2X325MG) PO PRN (10:11)
[2020-03-30] MEDS ORDERED: ACET-907 PO (18:19)
== END 2020-03-29 14:58 | disposition home or self-care (01) ==
LOC: M ED 09:38 → M MSPAV 14:29 → ENRESERV 15:03
PROVIDERS: ADMIT Internal Medicine; ATTEND Internal Medicine
DX: R53.81 Other malaise (principal); E87.6 Hypokalemia; E86.0 Dehydration; E87.2 Acidosis; E87.1 Hypo-osmolality and hyponatremia; K21.9 Gastro-esophageal reflux disease without esophagitis; E03.9 Hypothyroidism, unspecified; E78.2 Mixed hyperlipidemia; G31.84 Mild cognitive impairment of uncertain or unknown etiology; Q21.1 Atrial septal defect; I48.91 Unspecified atrial fibrillation; Z86.73 Personal history of transient ischemic attack (TIA), and cerebral infarction without residual deficits; Z79.899 Other long term (current) drug therapy; Z79.01 Long term (current) use of anticoagulants; F41.9 Anxiety disorder, unspecified; F32.9 Major depressive disorder, single episode, unspecified; F03.90 Unspecified dementia, unspecified severity, without behavioral disturbance, psychotic disturbance, mood disturbance, and anxiety; Z11.59 Encounter for screening for other viral diseases
CPT/HCPCS: 36415; 71045; 74177; 80048; 80076; 82550; 82553; 83605; 83690; 83735; 84100; 84484; 85025; 85027; 87040; 93005; 93041; 94760; 96361; 96365; 97116; 97161; 97165; 97530; 97535; 99223; 99285; G0378; J1335; J3475; Q9967; U0002

== ENCOUNTER 2020-03-30 12:41 | Inpatient (IN) | payer MEDICARE ==
[~2020-03-30] VITALS: Ht 162.6 cm; Wt 74.9 kg
[~2020-03-30 12:41] MED LIST changes: +CIPR500T3 PO; +LASI40TA9 PO; -atenoloL 25 MG TAB PO SCH
[2020-03-30 13:37] LABS: BASO % 0.2 % (0.0-1.0); EOS % 0.1 % (0.0-3.0); HEMATOCRIT 37.6 % (36.0-47.0); LYMPH # 0.7 10^3/uL (1.5-5.0); LYMPH % 4.7 % (24.0-44.0); MEAN CORPUSCULAR HEMOGLOBIN 27.8 pg (27.0-33.0); MEAN CORPUSCULAR HGB CONC 32.7 g/dl (32.0-36.5); MEAN CORPUSCULAR VOLUME 85.1 fl (80.0-96.0); MONO # 0.7 10^3/uL (0.0-0.8); MONO % 4.9 % (0.0-5.0); NEUTROPHILS # 12.7 10^3/uL (1.5-8.5); NEUTROPHILS % 89.7 % (36.0-66.0); PLATELET COUNT, AUTOMATED 590 10^3/uL (150-450); RED BLOOD COUNT 4.42 10^6/uL (4.00-5.40); WHITE BLOOD COUNT 14.2 10^3/uL (4.0-10.0)
[2020-03-30 13:41] LABS: HEMOGLOBIN 12.3 g/dl (12.0-15.5)
[2020-03-30 14:04] LABS: ALBUMIN 2.6 GM/DL (3.2-5.2); ALT/SGPT 26 U/L (12-78); BILIRUBIN,DIRECT 0.3 MG/DL (0.0-0.2); BILIRUBIN,TOTAL 0.6 MG/DL (0.2-1.0); BLOOD UREA NITROGEN 11 MG/DL (7-18); CALCIUM LEVEL 8.9 MG/DL (8.8-10.2); CARBON DIOXIDE LEVEL 32 MEQ/L (21-32); CHLORIDE LEVEL 97 MEQ/L (98-107); CREATININE FOR GFR 0.74 MG/DL (0.55-1.30); GLOMERULAR FILTRATION RATE > 60.0 (>39); GLUCOSE, FASTING 114 MG/DL (70-100); LIPASE 75 U/L (73-393); POTASSIUM SERUM 3.9 MEQ/L (3.5-5.1); SODIUM LEVEL 134 MEQ/L (136-145); TOTAL PROTEIN 7.4 GM/DL (6.4-8.2)
[2020-03-30] MEDS ORDERED: ISOVUE-370 76% 100ML VIAL As Ordered ONE (15:02)
--- NOTE | 2020-03-30 15:54 | REP ---
REASON: Diarrhea. COMPARISON: 03/23/2020, 03/16/2020 Contrast 100 mL Isovue 370. The lung bases are unchanged. The liver, gallbladder, spleen, pancreas and adrenal glands are unchanged. There is right-sided hydronephrosis possible proximal ureteroliths. There are pelvic calcifications and vascular calcifications abutting up against the ureter on the right. This makes assessment for intraureteral calculi difficult. The kidneys are otherwise unchanged. The bowel loops are essentially unchanged. There is no intestinal obstruction. There is a hiatal hernia. CT PELVIS: Pelvic calcifications status quo. Small amount of free pelvic fluid status quo. This fluid is essentially unchanged from 03/16/2020 as well as 03/23/2020. Marked spray artifact arising from a right hip prosthesis obscuring pelvic detail. No change in the abdominal aorta or periaortic regions. No change in the osseous structures. IMPRESSION: Right-sided hydronephrosis and possible proximal right ureteroliths. Other findings as described above. Consider urological consultation. No abscess or intestinal obstruction. Electronically Signed by Geovany Navarrete DO 03/30/2020 03:56 P
[2020-03-30] MEDS: LACTOBACILLUS ACIDOPHILUS CAP (BACID) PO SCH ×2 (18:00→21:41)
[2020-03-30] MEDS ORDERED: NS 1,000 ML IV SCH (18:00)
[2020-03-30] MEDS ORDERED: ACET-907 PO (18:19)
[2020-03-30 19:00] VITALS: BP 116/68
[2020-03-30] MEDS ORDERED: CIPROFLOXACIN 200 MG in IV 1 EA IV SCH (20:00)
--- NOTE | 2020-03-30 21:26 | HPE ---
DATE OF ADMISSION: 03/30/2020 CHIEF COMPLAINT: Brought in by family as they could not care for her at home. 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 Patient underwent interventional radiology (IR) drainage and drain was discontinued. Prior to hospital discharge, she passed physical therapy and was discharged home to be cared for by her daughter, Sarah. According to records, as the patient cannot provide a history, patient was brought into the hospital because her daughter cannot care for her at home and her son is unable to care for her, so she was brought in back to the hospital with complaints of generalized weakness, unable to perform activities of daily living (ADLs). In the emergency room (ER), she was afebrile, blood pressure was stable at 103 systolic. She had a white count of 14,000. UA was negative. Repeat CT abdomen and pelvis showed no abscess or intestinal obstruction, right-sided hydronephrosis with possible proximal right ureteroliths, which was present from previous CT abdomen and pelvis with normal creatinine. Hospitalist was called to admit for placement. Patient says that she has no abdominal pain, fever or chills at home. She is wheelchair bound. She slept on a chair, unable to care for herself at home and family brought her in. When asked why she was brought in, she says, "I don't know why I'm here, my daughter called the ambulance to bring me here." Patient's healthcare proxy, Sarah, is unable to be reached. We have called Sarah Odom, three times with no answer. PAST MEDICAL HISTORY: Right hydronephrosis. Perforated viscus secondary to perforated diverticula, diverticular abscess, status post IR drainage. Hyponatremia. Hypokalemia. Chronic atrial fibrillation. Hypothyroidism. History of CVA secondary to patent foramen ovale (PFO). Reflux. Hyperlipidemia. Dementia. PFO. PAST SURGICAL HISTORY: Drainage for diverticular abscess. Right total hip replacement. Revision of right hip. section. Left rotator cuff repair. Transverse carpal tunnel release. HOME MEDICATIONS: - Cipro 500 mg twice a day - Flagyl 500 mg every 8 hours - Prilosec 20 mg twice a day - Zoloft 50 mg daily - Eliquis 5 mg twice a day - atenolol 25 mg daily - Lipitor 40 mg nightly - donepezil 10 mg daily - Synthroid 50 mcg daily - Zoloft 50 mg daily - Prilosec 20 mg twice a day ALLERGIES: No known drug allergies. FAMILY HISTORY: Noncontributory due to advanced age. SOCIAL HISTORY: No alcohol, tobacco, recreational drug use. The patient says she lives alone, unable to be cared for by her daughter. CODE STATUS: Currently FULL CODE. REVIEW OF SYSTEMS: Per history of the present illness. Could not fully obtain review of systems as the patient is demented. PHYSICAL EXAM: Temperature 97.9, pulse 89, respiratory rate 18, blood pressure 101/67, 98% on room air. Generally the patient is awake, alert, oriented to herself. She is disoriented to time. She knows that she is at the hospital. Anicteric sclerae. No jaundice. No pallor. No icterus. No use of respiratory accessory muscles. Lungs are clear to auscultation. No wheezing, rales or rhonchi. Air entry is equal bilaterally. Heart: S1, S2, currently sinus rhythm. No murmurs, rubs or gallops. Abdomen is soft, nontender, nondistended. Positive bowel sounds. Right lower quadrant scar from previous drain placement. Extremities: Positive pitting edema of 2+. White count 14.2, hemoglobin 12.3, hematocrit 37.6, platelet count 590. Sodium 134, potassium 3.9, chloride 97, bicarbonate 32, BUN 11, creatinine 0.74, glucose 114, lactic acid 1.9, calcium 8.9, total bilirubin 0.6, direct bilirubin 0.3, AST 33, ALT 26, alkaline phosphatase 112, albumin 2.6, lipase 75. BMI 25.6. CT abdomen and pelvis: Right-sided hydronephrosis, kidneys unchanged. No intestinal obstruction. Hiatal hernia. No abscess. ASSESSMENT AND PLAN: A 80-year-old female with history of patent foramen ovale, stroke, on chronic Eliquis, diverticular abscess, status post drainage by interventional radiology, which resolved, hypothyroidism, hyperlipidemia, dementia, admitted 03/23/2020 to 03/28/2020, discharged home yesterday after passing home safety evaluation. Family brought her in as they are unable to care for her at home. States that she had been having diarrhea. CURRENT ISSUES: 1. Diarrhea. In light of recent antibiotic use, patient will be checked for Clostridium difficile (C diff). Gastrointestinal (GI) panel has been sent. Patient is currently on Bacid one tablet before food and nightly. 2. History of PFO and CVA, on chronic Eliquis. 3. Hypothyroidism, on levothyroxine. 4. Chronic dementia, on Aricept. Unable to care for herself, will need placement. Patient and family services (PFS) consulted in acute rehab unit (ARU). 5. Dyslipidemia, on Lipitor. 6. History of hiatal hernia, on chronic Prilosec. 7. Diverticular abscess, status post drainage with white count of 14,000. No drainable abscess on repeat CT. On Cipro, Flagyl. 8. Right-sided hydronephrosis, mild, with normal creatinine. Try IV fluid hydration. If acute kidney injury were to occur, will consult urology. 9. Deep vein thrombosis (DVT) prophylaxis, on chronic Eliquis. CODE STATUS: FULL CODE. Medical Orders for Life-Sustaining Treatment (MOLST) form not signed. Patient's healthcare proxy, Sarah Odom, could not be reached.
[2020-03-30] MEDS: metroNIDAZOLE 500 MG in IV 1 EA IV SCH (21:41)
[2020-03-30] MEDS: APIXABAN 5 MG TAB (ELIQUIS) PO SCH (21:41)
[2020-03-30] MEDS: ATORVASTATIN 20 MG TAB PO SCH (21:42)
[2020-03-30] MEDS: DONEPEZIL 5 MG TAB PO SCH (21:42)
[2020-03-30] MEDS: OMEPRAZOLE 20 MG CAP PO SCH (21:42)
[2020-03-30 22:00] VITALS: BP 120/70
[2020-03-31] MEDS ORDERED: NS 1,000 ML IV SCH (04:00)
[2020-03-31 04:40] VITALS: BP 88/52
[2020-03-31] MEDS ORDERED: NS 500 ML IV ONE ×2 (05:00→07:15)
[2020-03-31] MEDS: LEVOTHYROXINE 50MCG TABLET (0.05MG) PO SCH (05:41)
[2020-03-31] MEDS: metroNIDAZOLE 500 MG in IV 1 EA IV SCH (05:41)
[2020-03-31] MEDS ORDERED: NYSTATIN 100,000 UNITS/GM TOPICAL PWD 15 GM TOP PRN (05:45)
[2020-03-31 06:00] VITALS: BP 83/56
[2020-03-31] MEDS: ACETAMINOPHEN TAB 650MG DOSE (2X325MG) PO PRN ×2 (06:20→20:25)
[2020-03-31 06:58] VITALS: BP 92/55
[2020-03-31 07:48] LABS: BASO % 0.3 % (0.0-1.0); EOS % 0.3 % (0.0-3.0); HEMATOCRIT 28.1 % (36.0-47.0); LYMPH # 1.5 10^3/uL (1.5-5.0); MEAN CORPUSCULAR HEMOGLOBIN 27.4 pg (27.0-33.0); MEAN CORPUSCULAR HGB CONC 32.7 g/dl (32.0-36.5); MEAN CORPUSCULAR VOLUME 83.6 fl (80.0-96.0); MONO # 1.1 10^3/uL (0.0-0.8); MONO % 12.1 % (0.0-5.0); NEUTROPHILS # 6.2 10^3/uL (1.5-8.5); NEUTROPHILS % 69.6 % (36.0-66.0); RED BLOOD COUNT 3.36 10^6/uL (4.00-5.40)
[2020-03-31 07:55] LABS: HEMOGLOBIN 9.2 g/dl (12.0-15.5); PLATELET COUNT, AUTOMATED 462 10^3/uL (150-450)
[2020-03-31 08:09] LABS: BLOOD UREA NITROGEN 9 MG/DL (7-18); C REACTIVE PROTEIN QUANTITATIV 2.02 MG/DL (0.00-0.30); CALCIUM LEVEL 7.6 MG/DL (8.8-10.2); CARBON DIOXIDE LEVEL 30 MEQ/L (21-32); CHLORIDE LEVEL 101 MEQ/L (98-107); CREATININE FOR GFR 0.59 MG/DL (0.55-1.30); GLOMERULAR FILTRATION RATE > 60.0 (>39); GLUCOSE, FASTING 80 MG/DL (70-100); POTASSIUM SERUM 3.4 MEQ/L (3.5-5.1); SODIUM LEVEL 138 MEQ/L (136-145)
[2020-03-31] MEDS: SERTRALINE HCL 50 MG TAB PO SCH (08:20)
[2020-03-31] MEDS: APIXABAN 5 MG TAB (ELIQUIS) PO SCH ×2 (08:20→20:25)
[2020-03-31] MEDS: LACTOBACILLUS ACIDOPHILUS CAP (BACID) PO SCH ×4 (08:20→20:26)
[2020-03-31] MEDS: OMEPRAZOLE 20 MG CAP PO SCH ×2 (08:21→20:25)
[2020-03-31] MEDS: CIPROFLOXACIN 500MG TABLET PO SCH ×2 (08:21→17:47)
[2020-03-31 08:27] LABS: ERYTHROCYTE SEDIMENTATION RATE 61 mm/hr (0-30)
[2020-03-31 09:00] VITALS: BP 102/58
[2020-03-31] MEDS ORDERED: atenoloL 25 MG TAB PO SCH (09:00)
[2020-03-31] MEDS ORDERED: POTASSIUM CHLORIDE 10 MEQ SR TABLET PO ONE (13:00)
[2020-03-31] MEDS: metroNIDAZOLE (FLAGYL) 500 MG TAB PO SCH ×2 (13:03→20:26)
[2020-03-31 14:00] VITALS: BP 96/56
--- NOTE | 2020-03-31 16:03 | IPN ---
DATE: 03/31/2020 Patient denies fevers, chills, abdominal pain, nausea, vomiting, diarrhea, dysuria, urgency, frequency, hematuria, flank pain, back pain, and says, "I'm going to go home." Patient's healthcare proxy/daughter was unable to be reached yesterday after three calls. Contact information is Sarah Odom, phone number . Patient says that her son told her that he can help her at home. Patient was afebrile overnight. No other issues. This morning, blood pressure was 83/56. No lightheadedness or dizziness, chest pain, pressure, or tightness. Her atenolol 25 mg has been held. VITAL SIGNS: Temperature 97.8, pulse 96, respiratory rate 15, blood pressure 92/55, 93% on room air. GENERAL: Awake, alert, oriented to herself. Answers questions appropriately. No use of respiratory accessory muscles. No cyanosis. No jugular venous distention (JVD). No thyromegaly. LUNGS: Clear to auscultation. No wheezes, rales, or rhonchi. HEART: S1, S2, sinus rhythm. No murmurs, rubs, or gallops. ABDOMEN: Soft, nontender, nondistended. Positive bowel sounds. Previous well-healed scar in the lower right quadrant from previous drain placement. EXTREMITIES: Pitting edema 2+. LABORATORY DATA: Pending. ASSESSMENT AND PLAN: This is a 80-year-old female with diverticular abscess with perforated diverticulum, status post drainage by interventional radiology, which resolved, admitted on March 23 to March 28, discharged home on March 29. Brought in by the daughter on March 30. Unable to care for her at home. Patient says she had been having diarrhea but had no bowel movement and currently on no bowel regimen. Stool is still pending. Urinalysis was negative with negative bacteria, negative nitrite, 4 white blood cells (WBC). Patient is resumed in Cipro/Flagyl for her history of diverticular abscess. Due to recent use of atenolol, patient's blood pressure was 83/56. She is afebrile. Despite findings of hydronephrosis on the right kidney, which has been present from early March, patient has had no renal failure. ACUTE ISSUES: 1. Diarrhea, resolved. We have had no sample during this admission due to active antibiotic use. We are concerned about Clostridium (C) difficile. Therefore, gastrointestinal (GI) panel and C. difficile have been ordered. She is currently on Bacid one tablet before food/at bedtime. 2. History of patent foramen ovale (PFO) and cerebrovascular accident (CVA), on chronic Eliquis, which has been resumed. 3. Hypothyroidism, on levothyroxine. 4. Diverticular abscess, status post perforation, status post interventional radiology (IR) drainage. She is on Cipro and Flagyl, changed to oral as she has no nausea or vomiting. 5. Cognitive impairment, on chronic Aricept. 6. Dyslipidemia, on Lipitor. 7. Hiatal hernia, on chronic Prilosec. 8. Mild right hydronephrosis with normal creatinine, status post intravenous fluids. 9. Hypotension. No signs of sepsis at this time. She is afebrile. Urinalysis (UA) is negative. Chest x-ray is negative. Hold patient's atenolol for now. DISPOSITION: Patient will be placement, as family cannot care for her.
[2020-03-31] MEDS: DONEPEZIL 5 MG TAB PO SCH (20:26)
[2020-03-31] MEDS: ATORVASTATIN 20 MG TAB PO SCH (20:26)
[2020-03-31 22:00] VITALS: BP 101/61
[2020-04-01] MEDS: metroNIDAZOLE (FLAGYL) 500 MG TAB PO SCH (05:16)
[2020-04-01] MEDS: LEVOTHYROXINE 50MCG TABLET (0.05MG) PO SCH (05:16)
[2020-04-01] MEDS: CIPROFLOXACIN 500MG TABLET PO SCH (05:17)
[2020-04-01 06:00] VITALS: BP 106/60
[2020-04-01 06:56] LABS: BASO % 0.3 % (0.0-1.0); EOS % 0.3 % (0.0-3.0); HEMATOCRIT 25.8 % (36.0-47.0); HEMOGLOBIN 8.7 g/dl (12.0-15.5); LYMPH # 1.4 10^3/uL (1.5-5.0); LYMPH % 15.3 % (24.0-44.0); MEAN CORPUSCULAR HEMOGLOBIN 28.1 pg (27.0-33.0); MEAN CORPUSCULAR HGB CONC 33.7 g/dl (32.0-36.5); MEAN CORPUSCULAR VOLUME 83.2 fl (80.0-96.0); MONO # 1.1 10^3/uL (0.0-0.8); MONO % 12.6 % (0.0-5.0); NEUTROPHILS # 6.4 10^3/uL (1.5-8.5); NEUTROPHILS % 71.1 % (36.0-66.0); PLATELET COUNT, AUTOMATED 433 10^3/uL (150-450)
[2020-04-01 07:17] LABS: BLOOD UREA NITROGEN 8 MG/DL (7-18); CALCIUM LEVEL 7.4 MG/DL (8.8-10.2); CARBON DIOXIDE LEVEL 29 MEQ/L (21-32); CHLORIDE LEVEL 102 MEQ/L (98-107); CREATININE FOR GFR 0.59 MG/DL (0.55-1.30); GLOMERULAR FILTRATION RATE > 60.0 (>39); GLUCOSE, FASTING 82 MG/DL (70-100); POTASSIUM SERUM 3.4 MEQ/L (3.5-5.1); SODIUM LEVEL 136 MEQ/L (136-145)
[2020-04-01] MEDS: LACTOBACILLUS ACIDOPHILUS CAP (BACID) PO SCH ×2 (07:40→12:30)
[2020-04-01] MEDS: OMEPRAZOLE 20 MG CAP PO SCH (09:16)
[2020-04-01] MEDS: APIXABAN 5 MG TAB (ELIQUIS) PO SCH (09:16)
[2020-04-01] MEDS: ACETAMINOPHEN TAB 650MG DOSE (2X325MG) PO PRN (09:16)
[2020-04-01] MEDS: SERTRALINE HCL 50 MG TAB PO SCH (09:17)
--- NOTE | 2020-04-03 19:24 | DSES ---
DATE OF ADMISSION: 03/30/2020 DATE OF DISCHARGE: 04/01/2020 Patient is discharged to [facility]. PRIMARY DISCHARGE DIAGNOSES: 1. Generalized weakness. Family unable to take care of her at home. 2. Diverticular abscess status post perforated diverticulum with drainage by interventional radiology (IR) from previous admission and discharged on March 29. 3. History of patent foramen ovale and cerebrovascular accident, on chronic Eliquis. 4. Hypothyroidism. 5. Cognitive impairment. 6. Dyslipidemia. 7. Hiatal hernia. 8. Mild right hydronephrosis with normal creatinine. Complains of diarrhea but none during this admission. DISCHARGE MEDICATIONS: - Cipro 500 twice a day - Flagyl 500 every 8 hours - Tylenol 650 four times a day as needed - Eliquis 5 mg twice a day - atenolol 25 daily - atorvastatin 40 at bedtime - donepezil 10 at bedtime - Lasix 40 daily - Synthroid 50 mcg daily - multivitamin one tablet daily - Prilosec 20 twice a day - sertraline 50 daily DISCHARGE INSTRUCTIONS: Patient's atenolol is to be held for systolic pressure less than 100 or heart rate less than 60. Lasix is to be held for systolic pressure less than 120. Patient is to followup with primary care physician within 5-7 days of hospital discharge. HOSPITAL COURSE: This is a 80-year-old female, brought in by family after being released from the hospital on March 29, when she was treated for a diverticular abscess by drainage and antibiotics. IR had removed the drain, and she was discharged home after passing home safety evaluation. Patient's daughter could not be reached and has been unable to care for her at home. She was then brought back to the hospital with complaints of generalized weakness. In the emergency room (ER), she was hemodynamically stable, afebrile. Blood pressure was [address] abdomen and pelvis shows persistent right-sided hydronephrosis despite normal creatinine. This was present on previous CT abdomen and pelvis on 03/23/2020. Patient has been sleeping in the chair, unable to care for herself at home. Family has brought her in asking for placement. Patient was admitted and placed on IV fluids. White count was 14.2. She was continued on her home Cipro and Flagyl intravenously. Urinalysis (UA) was unimpressive, nitrite negative, 4 WBC, and negative bacteria. Patient continued to require held with her activities of daily living (ADLs) and was subsequently discharged to [facility]. Temperature 98, pulse 114, respiratory rate 17, blood pressure 106/60, 98% on room air. GENERAL: Awake, alert, oriented to herself only, answering questions appropriately. No jugular venous distention (JVD). No thyromegaly. No cervical lymphadenopathy. LUNGS: Clear to auscultation. No wheezes, rales, or rhonchi. HEART: S1, S2, sinus tachycardia. ABDOMEN: Soft, nontender, nondistended. Positive bowel sounds. Right lower quadrant scar from previous drain. EXTREMITIES: Pitting edema 2+. LABORATORY DATA ON DISCHARGE: White count 9, hemoglobin 8.7, hematocrit 25, platelet count 433. Sodium 136, potassium 3.4, chloride 102, bicarbonate 29, BUN 8, creatinine 0.59, glucose 82. IMAGING STUDY: On March 23, CT abdomen and pelvis: Right-sided hydronephrosis. Possible proximal right ureterolith. Other findings as above. Bowel loops are unchanged. No intestinal obstruction. TIME SPENT ON DISCHARGE: 30 minutes. MTDD
== END 2020-04-01 12:44 | DRG 948 ==
LOC: M ED 12:41 → CMPBEDREQ 17:29 → M ED INP 17:43 → ENRESERV 18:27 → M MS5PR 18:55
PROVIDERS: ADMIT General Practice; ATTEND General Practice
DX: R53.1 Weakness (principal); I48.20 Chronic atrial fibrillation, unspecified; N13.30 Unspecified hydronephrosis; Q21.1 Atrial septal defect; K57.80 Diverticulitis of intestine, part unspecified, with perforation and abscess without bleeding; F03.90 Unspecified dementia, unspecified severity, without behavioral disturbance, psychotic disturbance, mood disturbance, and anxiety; K21.9 Gastro-esophageal reflux disease without esophagitis; E03.9 Hypothyroidism, unspecified; K44.9 Diaphragmatic hernia without obstruction or gangrene; I95.9 Hypotension, unspecified; Z86.73 Personal history of transient ischemic attack (TIA), and cerebral infarction without residual deficits; E78.5 Hyperlipidemia, unspecified; Z96.641 Presence of right artificial hip joint; Z79.01 Long term (current) use of anticoagulants; Z79.899 Other long term (current) drug therapy; Z74.2 Need for assistance at home and no other household member able to render care

== ENCOUNTER → 2020-04-02 | Outpatient (REF) ==
[~2020-04-02] MED LIST changes: +ACET-907 PO
== END ==
LOC: SKLAB3 14:56
PROVIDERS: ATTEND Family Medicine
DX: D64.9 Anemia, unspecified (principal)

== ENCOUNTER → 2020-04-03 | Outpatient (REF) ==
[~2020-04-03] MED LIST changes: +CEFD1CAP8 PO; +DIGO0.123 PO; +FERR325T3 PO; +LEVO500T3 PO; +MAGN64TASA PO; +METO1TAB32 PO
[2020-04-03 07:39] LABS: BASO % 0.3 % (0.0-1.0); EOS # 0.1 10^3/uL (0.0-0.5); EOS % 0.6 % (0.0-3.0); HEMATOCRIT 28.7 % (36.0-47.0); HEMOGLOBIN 9.3 g/dl (12.0-15.5); LYMPH # 1.6 10^3/uL (1.5-5.0); LYMPH % 16.5 % (24.0-44.0); MEAN CORPUSCULAR HEMOGLOBIN 27.2 pg (27.0-33.0); MEAN CORPUSCULAR HGB CONC 32.4 g/dl (32.0-36.5); MEAN CORPUSCULAR VOLUME 83.9 fl (80.0-96.0); MONO # 0.9 10^3/uL (0.0-0.8); NEUTROPHILS % 73.1 % (36.0-66.0); PLATELET COUNT, AUTOMATED 431 10^3/uL (150-450); RED BLOOD COUNT 3.42 10^6/uL (4.00-5.40); WHITE BLOOD COUNT 9.6 10^3/uL (4.0-10.0)
== END ==
LOC: SKLAB3 07:00
PROVIDERS: ATTEND Family Medicine
DX: D64.9 Anemia, unspecified (principal)

== ENCOUNTER 2020-04-07 11:36 | Inpatient (IN) | payer MEDICARE ==
[~2020-04-07] VITALS: Ht 162.6 cm; Wt 66.6 kg
[2020-04-07] VITALS (15 sets, daily range): BP systolic 83–100; BP diastolic 50–67
[~2020-04-07 11:36] MED LIST changes: -CEFD1CAP8 PO; -DIGO0.123 PO; -FERR325T3 PO; -LEVO500T3 PO; -MAGN64TASA PO; -METO1TAB32 PO
[2020-04-07] MEDS ORDERED: DIGOXIN INJ 0.5 MG/2 ML AMP (J1160) IV STA (12:00)
[2020-04-07 12:24] LABS: HEMATOCRIT 35.8 % (36.0-47.0); HEMOGLOBIN 11.3 g/dl (12.0-15.5); MEAN CORPUSCULAR HGB CONC 31.6 g/dl (32.0-36.5); MEAN CORPUSCULAR VOLUME 85.6 fl (80.0-96.0); PLATELET COUNT, AUTOMATED 400 10^3/uL (150-450); RED BLOOD COUNT 4.18 10^6/uL (4.00-5.40); WHITE BLOOD COUNT 16.9 10^3/uL (4.0-10.0)
--- NOTE | 2020-04-07 12:33 | REP ---
CHEST, SINGLE VIEW: Single view of the chest is performed and compared to a prior study of 03/23/2020. There is again significant elevation of the right hemidiaphragm with mild right base atelectatic change. No new infiltrate is seen. The heart and mediastinum are unchanged. There is a large hiatal hernia. There are no acute changes compared to the prior study. Electronically Signed by Beau Ruiz MD 04/07/2020 04:44 P
--- NOTE | 2020-04-07 12:35 | ECGEPIP ---
[facility] - ED Test Date: 2020-04-07 Pat Name: LASHAWN MCDANIELS Department: Room: - Gender: Female Director Of Collections And Archives: david : [id number] Requested By: OVIDIO HSU Order Number: [id number] Reading MD: Agnes Hernandez Measurements Intervals [place] Rate: 130 P: ME: 0 QRS: 7 QRSD: 89 T: -25 QT: 305 QTc: 449 Interpretive Statements PROBABLE ATRIAL FIBRILLATION WITH RAPID VENTRICULAR RESPONSE WITH ABERRANT COND CONDUCTION OR VENTRICULAR PREMATURE COMPLEXES BASELINE ARTIFACT LIMITS INTERPRETATION MINIMAL ST DEPRESSION ABNORMAL RHYTHM ECG INCREASED RATE 03/23/20 Electronically Signed on 04-07-2020 12:35:32 EDT by Agnes Hernandez
[2020-04-07 12:37] LABS: INR 1.92; PARTIAL THROMBOPLASTIN TIME 34.4 SECONDS (25.0-38.4); PROTHROMBIN TIME 21.7 SECONDS (11.8-14.0)
[2020-04-07] MEDS ORDERED: CEFEPIME HCL 2 GM in D5W MINI-BAG PLUS 50 ML IV ONE (12:45)
[2020-04-07] MEDS ORDERED: NS IV ONE (12:45)
[2020-04-07 12:51] LABS: EOSINOPHILS 1 % (0-3); LYMPHOCYTES 5 % (16-44); NEUTROPHILS 84 % (28-66); PLATELET ESTIMATE NORMAL (NORMAL)
[2020-04-07 13:13] LABS: ALBUMIN 2.4 GM/DL (3.2-5.2); ALT/SGPT 21 U/L (12-78); AMYLASE 38 U/L (25-115); BILIRUBIN,DIRECT 0.3 MG/DL (0.0-0.2); BILIRUBIN,TOTAL 0.6 MG/DL (0.2-1.0); C REACTIVE PROTEIN QUANTITATIV 8.54 MG/DL (0.00-0.30); CK-MB VALUE MASS 1.1 NG/ML (<3.6); CPK CREATINE PHOSPHOKINASE 23 U/L (26-192); MB/CK RELATIVE INDEX 4.78 (< OR =4); TOTAL PROTEIN 7.6 GM/DL (6.4-8.2); TROPONIN I < 0.02 NG/ML (< 0.10)
[2020-04-07] MEDS ORDERED: POTASSIUM CHLORIDE 10 MEQ SR TABLET PO ONE ×2 (13:15→19:00)
[2020-04-07] MEDS: KCL 10MEQ/100ML SWI (KRUN) 10 MEQ in IV 1 EA IV SCH ×3 (13:29→16:00)
[2020-04-07] MEDS ORDERED: CEFEPIME HCL 2 GM in D5W 50 ML IV SCH (14:00)
[2020-04-07] MEDS ORDERED: VANCOMYCIN HCL 1,000 MG, VIAL MATE ADAPTER 1 EACH in D5W 250 ML IV SCH (14:30)
--- NOTE | 2020-04-07 14:45 | REP ---
CT ABDOMEN AND PELVIS WITHOUT CONTRAST: CT abdomen and pelvis performed without oral or IV contrast. Sagittal and coronal reconstruction images are performed. Comparison is made with prior studies 03/16/2020, 03/23/2020 and 03/30/2020. In the visualized lung bases, there is mild bibasilar atelectasis/infiltrate inferiorly. There is elevation of the right hemidiaphragm. Liver is grossly unremarkable. Gallbladder wall appears somewhat thickened. Spleen is normal in size. Adrenal glands are grossly unremarkable. Pancreas is grossly unremarkable. There is an exophytic cyst in the upper pole of the left kidney measuring 3.4 cm in diameter. There is moderate right hydronephrosis. There is moderate right hydroureter. I suspect this is caused by inflammatory and phlegmonous change in the right pelvis as was originally seen on the CT of 03/16/2020. However, differentiation of multiloculated air/fluid is difficulty without IV and oral contrast. There is definitely some free fluid in the posterior pelvis. There is diffuse sigmoid diverticulosis with mild wall thickening and diverticulitis. There is again an abscess containing mostly air but also some fluid in the right abdomen measuring approximately 9.5 cm in maximum diameter. No free intraperitoneal air is seen in the abdomen. Evaluation of the pelvic structures is also limited by metallic right hip prosthesis. Urinary bladder contains fluid. Uterine fibroid is again noted. There are diffuse degenerative changes of the spine. There is a large hiatal hernia. IMPRESSION: Right abdominal abscess noted, originally seen 03/16/2020. Maximum diameter is 9.5 cm. It contains mainly air but also some fluid. I also suspect continued phlegmonous change in the right pelvis due to prior perforated sigmoid diverticulitis with what appears to be multiloculated air/fluid in the right pelvis. Differentiation from adjacent small bowel is difficult, however, without IV and oral contrast as well as streak artifact from the right hip prosthesis. There is free fluid in the posterior pelvis. Moderate right hydroureteronephrosis likely caused by inflammatory and phlegmonous change in the right pelvis. Electronically Signed by Beau Ruiz MD 04/07/2020 04:47 P
--- NOTE | 2020-04-07 14:46 | HPEPDOC ---
General Date of Admission 04/07/20 Date of Service: April 07, 2020 Chief Complaint The patient is a 80-year-old female admitted with a reason for visit of Syncope. Source: Patient, Old records Exam Limitations: Dementia Timing/Duration: 24 hours Severity: Moderate, Severe Associated Symptoms: Chills, Hypotension History of Present Illness Patient's 80 years old female with past medical history of diverticulitis abscess perforation, dementia, hypothyroidism, atrial fibrillation, CVA pre sented to the hospital after she was found unconsciousness in the long term in atrial fibrillation with rapid ventricular rate. On arrival patient was in rigors with rapid ventricular rate up to 190. Of note patient was recently discharged from the hospital after she was found to have perforated viscus secondary to perforated diverticular due to diverticulitis, status post IR drainage. Patient was discharged from the hospital with course of antibiotics In emergency room patient was found to have hypotension of 80/40, leukocytosis of 16.9, hemoglobin of 11.3, TSH 13.1, K 2.9, lactic acid 4.6. CT of abdomen showed significant right kidney hydronephrosis. I talked the radiologist by phone, most likely patient developed right kidney hydronephrosis secondary to phlegmon. Home Medications Scheduled Apixaban (Eliquis) 5 Mg Tablet, 5 MG PO BID, (Reported) Atenolol (Atenolol) 25 Mg Tablet, 25 MG PO DAILY, (Reported) Atorvastatin Calcium (Atorvastatin Calcium) 40 Mg Tab, 40 MG PO QHS, (Reported) Donepezil HCl (Donepezil HCl) 10 Mg Tablet, 10 MG PO QHS, (Reported) Furosemide (Lasix) 40 Mg Tablet, 40 MG PO DAILY, (Reported) Levothyroxine Sodium (Levothyroxine Sodium) 50 Mcg Tab, 50 MCG PO DAILY, (Reported) Multivitamins (Thera M Plus Tablet) 1 Tab Tab, 1 TAB PO DAILY, (Reported) Omeprazole (Omeprazole) 20 Mg Cap, 20 MG PO BID, (Reported) Sertraline HCl (Sertraline HCl) 50 Mg Tablet, 50 MG PO DAILY, (Reported) Scheduled PRN Acetaminophen (Tylenol) 325 Mg Tablet, 650 MG PO QID PRN for PAIN, (Reported) Allergies Coded Allergies: No Known Allergies (Unverified , 03/23/20) Past Medical History Medical History Right hydronephrosis. Perforated viscus secondary to perforated diverticula, diverticular abscess, status post IR drainage. Hyponatremia. Hypokalemia. Chronic atrial fibrillation. Hypothyroidism. History of CVA secondary to patent foramen ovale (PFO). Reflux. Hyperlipidemia. Dementia. PFO. Surgical History Drainage for diverticular abscess. Right total hip replacement. Revision of right hip. section. Left rotator cuff repair. Transverse carpal tunnel release. Family History I reviewed family history and found not pertinent Social History * Smoker: Denies Alcohol: Denies Drugs: denies A-FIB/CHADSVASC A-FIB History Current/History of A-Fib/PAF?: Yes Current PO Anticoag Therapy: Yes Review of Systems Constitutional: Reports: Chills, Malaise, Weakness Eyes: Denies: Pain ENT: Denies: Head Aches Skin: Denies: Rash, Lesions Pulmonary: Reports: Dyspnea Cardiovascular: Reports: Palpitations; Denies: Chest Pain Gastrointestinal: Denies: Nausea, Vomiting Genitourinary: Denies: Dysuria, Frequency Hematologic: Denies: Bruising Endocrine: Denies: Polydipsia, Polyphagia Musculoskeletal: Denies: Neck Pain, Back Pain Neurological: Denies: Weakness, Numbness Psych: Reports: Mood Normal Physical Examination General Exam: Positive: Alert Eye Exam: Positive: PERRLA ENT Exam: Positive: Atraumatic, Mucous membr. moist/pink Neck Exam: Positive: Supple; Negative: JVD Chest Exam: Positive: Diminished Heart Exam: Positive: Tachycardic Telemetry: Positive: Atrial fibrillation Abdomen Exam: Positive: BS Hypoactive Extremity Exam: Negative: Clubbing, Cyanosis Skin Exam: Positive: Nl turgor and temperature Neuro Exam: Positive: Strength at 5/5 X4 ext, Cranial Nerves 3-12 NL Psych Exam: Positive: Other (demented) Vital Signs Vital Signs Date Time Temp Pulse Resp B/P (MAP) Pulse Ox O2 Delivery O2 Flow Rate FiO2 04/07/20 12:27 110 04/07/20 11:45 97.2 28 110/66 (81) 97 Non-Rebreather 10.0 Laboratory Data Labs 24H Laboratory Tests 2 04/07/20 12:13: Prothrombin Time 21.7H, Prothromb Time International Ratio 1.92, Activated Partial Thromboplast Time 34.4, Total Bilirubin 0.6, Direct Bilirubin 0.3H, Aspartate Amino Transf (AST/SGOT) 30, Alanine Aminotransferase (ALT/SGPT) 21, Alkaline Phosphatase 102, Total Creatine Kinase 23L, Creatine Kinase MB 1.1, Creatine Kinase MB Relative Index 4.78H, Troponin I < 0.02, C-Reactive Protein, Quantitative 8.54H, Total Protein 7.6, Albumin 2.4L, Albumin/Globulin Ratio 0.5L, Amylase Level 38, Thyroid Stimulating Hormone (TSH) 14.100H 04/07/20 12:14: Neutrophils (%) (Auto) , Nucleated Red Blood Cells % (auto) 0.0, Neutrophils 84H, Band Neutrophils 10, Lymphocytes (Manual) 5L, Eosinophils (Manual) 1, Red Blood Cell Morphology NORMAL, Platelet Estimate NORMAL, POC Glucose (Misc Panel) 112H, POC Sodium (Misc Panel) 137, POC Potassium (Misc Panel) 2.9*L, POC Chloride (Misc Panel) 95L, POC Total CO2 (Misc Panel) 28.0H, POC Blood Urea Nitrogen (Misc Panel 10, POC Ionized Calcium (Misc Panel) 4.1L, POC Creatinine (Misc Panel) 0.7, POC Hematocrit (Misc Panel) 40.0 04/07/20 12:18: POC Lactate (Misc Panel) 4.69*H CBC/BMP Laboratory Tests 04/07/20 12:14 Microbiology Microbiology 04/07/20 Blood Culture, Received Pending 04/07/20 Blood Culture, Received Pending Assessment/Plan Patient's 80 years old female with past medical history of diverticulitis abscess perforation, dementia, hypothyroidism, atrial fibrillation, CVA presented to the hospital after she was found unconsciousness in the long term in atrial fibrillation with rapid ventricular rate. On arrival patient was in rigors with rapid ventricular rate up to 190. Of note patient was recently discharged from the hospital after she was found to have perforated viscus secondary to perforated diverticular due to diverticulitis, status post IR drainage. Patient was discharged from the hospital with course of antibiotics In emergency room patient was found to have hypotension of 80/40, leukocytosis of 16.9, hemoglobin of 11.3, TSH 13.1, K 2.9, lactic acid 4.6. CT of abdomen showed significant right kidney hydronephrosis. Problems (1) Sepsis Status: Acute Problem Text: Patient developed severe sepsis with hypotension, leukocytosis an d lactic acidosis Most likely secondary to abdominal abscess Patient will need pressure support Cefepime IV, vancomycin IV Continue IV fluid Await blood culture, urine culture (2) Intra-abdominal abscess Status: Acute Problem Text: I talked the radiologist by phone, most likely patient developed right kidney hydronephrosis secondary to phlegmon. Official report stated phlegmonous change in the right pelvis due to prior perforated sigmoid diverticulitis with what appears to be multiloculated air/fluid in the right pelvis Appreciate/agree with surgeon consult Will drain abscess by IR US (3) Hypokalemia Status: Acute Problem Text: We'll repeat BMP Replaced (4) Atrial fibrillation with RVR Status: Acute Problem Text: Most likely secondary to sepsis Lopressor IV when necessary I will hold oral targeted anticoagulation for now due to possible surgical intervention heparin drip Plan / VTE VTE Prophylaxis Ordered?: Yes TODD JACQUES DO April 07, 2020 14:46
[2020-04-07] MEDS: NOREPINEPHRINE BITARTRATE 8 MG in D5W 492 ML IV SCH (15:00)
[2020-04-07] MEDS ORDERED: VANCOMYCIN HCL 750 MG, VIAL MATE ADAPTER 1 EACH in D5W 250 ML IV ONE (15:00)
[2020-04-07 15:15] LABS: BLOOD UREA NITROGEN 11 MG/DL (7-18); CALCIUM LEVEL 7.8 MG/DL (8.8-10.2); CARBON DIOXIDE LEVEL 29 MEQ/L (21-32); CHLORIDE LEVEL 102 MEQ/L (98-107); CREATININE FOR GFR 0.68 MG/DL (0.55-1.30); GLOMERULAR FILTRATION RATE > 60.0 (>39); GLUCOSE, FASTING 79 MG/DL (70-100); POTASSIUM SERUM 3.5 MEQ/L (3.5-5.1); SODIUM LEVEL 137 MEQ/L (136-145)
[2020-04-07] MEDS ORDERED: HEPARIN SOD (PORCINE) 5000UNITS/ML VIAL (J1644 PER 1000UNITS) IV PRN (15:45)
[2020-04-07] MEDS ORDERED: HEPARIN SOD (PORCINE) 5000UNITS/ML VIAL (J1644 PER 1000UNITS) IV ONE (16:00)
[2020-04-07] MEDS ORDERED: HEPARIN DRIP 25,000 UNITS in IV 1 EA IV SCH (16:00)
[2020-04-07] MEDS ORDERED: VANCOMYCIN HCL 500 MG in D5W MINI-BAG PLUS 100 ML IV ONE (16:00)
--- NOTE | 2020-04-07 16:26 | CR.PDOC ---
General Surgery Consultation Date of Consultation 04/07/20 History and Physical CONSULT REPORT FOR: Dr. Garnica REASON FOR CONSULTATION: recurrent abscess/diverticulitis with abscess HISTORY OF PRESENT ILLNESS: PAST MEDICAL HISTORY: 1. . PAST SURGICAL HISTORY: INCLUDES: 1. . PREVIOUS ANESTHESIA REACTIONS: ALLERGIES: Please see below. FAMILY HISTORY: . HOME MEDICATIONS: Please see below. REVIEW OF SYSTEMS: GENERAL: [Denies chills, reports weight gain, reports feeling febrile yesterday]. HEENT: [Denies blurred vision and double vision. Denies ear symptoms. Denies hoarseness]. NECK: Denies any neck pain]. CARDIOVASCULAR: [Denies chest pain and palpitations]. MUSCULOSKELETAL: [Denies arthralgias, back pain and thrombophlebitis]. SKIN: [Denies rash]. NEUROLOGIC: [Denies headache, stroke and transient ischemic attack]. PSYCHIATRIC: [Denies anxiety and depression]. ENDOCRINE: [Denies thyroid disease]. HEMATOLOGY/ONCOLOGY: [Denies bleeding or clotting disorder]. HEART: [Denies any chest pains, palpitations, paroxysmal dyspnea, orthopnea]. PULMONARY: [Denies chronic cough, dyspnea and wheezing]. GASTROINTESTINAL: [Denies rectal bleeding, family history of colon cancer, constipation, diarrhea, dysphagia, heartburn and jaundice]. GENITOURINARY: [Denies dysuria, frequency, hematuria and nocturia]. ENDOCRINE: [Denies polydipsia, polyphagia, polyuria, heat or cold intolerance]. INFECTIOUS: [Denies any recent upper respiratory tract infection, UTI, need for use of antibiotics]. NUTRITION: [Reports good appetite]. PHYSICAL EXAMINATION: VITALS SIGNS: Please see below. GENERAL APPEARANCE:[Patient seen, laying in bed, awake, alert, and oriented. Comfortable, in no acute distress]. SKIN: [Warm and moist]. HEENT: [Normocephalic, atraumatic. Morral palpebral conjunctiva, anicteric sclerae. Lips and mucosa appear moist]. NECK: [Supple, no thyromegaly. No obvious jugular venous distention]. LUNGS: [Clear to auscultation bilaterally. No wheezing appreciated]. HEART: [No chest wall abnormalities. Regular rate and rhythm with no murmurs appreciated]. ABDOMEN: Abdomen is , soft, . [No hepatosplenomegaly. No umbilical or groin herniations, nondistended. No noticeable rebound or guarding. No grimacing with palpation. No rebound tenderness. No masses appreciated]. EXTREMITIES: [Extremities have no deformities. No edema identified] ANCILLARIES: . LABORATORY DATA: Please see below. IMAGING STUDIES: . IMPRESSION AND PLAN: Sepsis from intraperitoneal abscess Acute Diverticulitis vs malignancy Patient was seen and examined in the ICU. I tried to collate all the information I could get from her previous admissions as well as from the previous notes from her primary care provider, Lynette Wilcox. Primary problem at this point is the recurrent abscess. This was drained back in February and the drain stayed for about 1 week and was removed. Severely 3 weeks after the abscess has recurred almost at the same size as the primary abscess. This needs percutaneous drainage was more and I suggest not remove the drain in until she is fully worked up with regards to the cause of the abscess. I could not find any prior history of colonoscopy. Patient is not sure if she has had any prior colonoscopies. Given her age, the degree of recurrence likewise patient reporting some weight loss, certainly malignancy is a cause of the colon perforation is a strong possibility especially the fact that there is some seeming involvement/obstruction of the right ureter. The first thing that needs to be done as were abscess that needs to be drained. I also would suggest testing her urine. The hydronephrosis especially if she has some infection associated with her urine maybe also causing the sepsis and this may need to be dealt with separately by a percutaneous nephrostomy. Suggest consult with urology with regards to the hydronephrosis. Patient is not having any peritoneal symptoms or prizing when she is not having any abdominal discomfort which leads me to think that there is some chronicity to this and argues against inflammation or infection is the primary cause of the abscess i.e. diverticulitis. After she stabilized either a barium enema or a colonoscopy should be considered or both as part of her workup. I'll follow the patient up closely.. Vital Signs Vital Signs Date Time Temp Pulse Resp B/P (MAP) Pulse Ox O2 Delivery O2 Flow Rate FiO2 04/07/20 15:17 97.8 101 17 88/60 (69) 95 Room Air 04/07/20 11:45 10.0 Laboratory Data Labs 24H Laboratory Tests 2 04/07/20 12:13: Prothrombin Time 21.7H, Prothromb Time International Ratio 1.92, Activated Partial Thromboplast Time 34.4, Total Bilirubin 0.6, Direct Bilirubin 0.3H, Aspartate Amino Transf (AST/SGOT) 30, Alanine Aminotransferase (ALT/SGPT) 21, Alkaline Phosphatase 102, Total Creatine Kinase 23L, Creatine Kinase MB 1.1, Creatine Kinase MB Relative Index 4.78H, Troponin I < 0.02, C-Reactive Protein, Quantitative 8.54H, Total Protein 7.6, Albumin 2.4L, Albumin/Globulin Ratio 0.5L, Amylase Level 38, Thyroid Stimulating Hormone (TSH) 14.100H 04/07/20 12:14: Neutrophils (%) (Auto) , Nucleated Red Blood Cells % (auto) 0.0, Neutrophils 84H, Band Neutrophils 10, Lymphocytes (Manual) 5L, Eosinophils (Manual) 1, Red Blood Cell Morphology NORMAL, Platelet Estimate NORMAL, POC Glucose (Misc Panel) 112H, POC Sodium (Misc Panel) 137, POC Potassium (Misc Panel) 2.9*L, POC Chloride (Misc Panel) 95L, POC Total CO2 (Misc Panel) 28.0H, POC Blood Urea Nitrogen (Misc Panel 10, POC Ionized Calcium (Misc Panel) 4.1L, POC Creatinine (Misc Panel) 0.7, POC Hematocrit (Misc Panel) 40.0 04/07/20 12:18: POC Lactate (Misc Panel) 4.69*H 04/07/20 14:44: Anion Gap 6L, Glomerular Filtration Rate > 60.0, Calcium Level 7.8L CBC/BMP Laboratory Tests 04/07/20 12:14 04/07/20 14:44 Microbiology Microbiology 04/07/20 Blood Culture, Received Pending 04/07/20 Blood Culture, Received Pending Home Medications Scheduled Apixaban (Eliquis) 5 Mg Tablet, 5 MG PO BID, (Reported) Atenolol (Atenolol) 25 Mg Tablet, 25 MG PO DAILY, (Reported) Atorvastatin Calcium (Atorvastatin Calcium) 40 Mg Tab, 40 MG PO QHS, (Reported) Donepezil HCl (Donepezil HCl) 10 Mg Tablet, 10 MG PO QHS, (Reported) Furosemide (Lasix) 40 Mg Tablet, 40 MG PO DAILY, (Reported) Levothyroxine Sodium (Levothyroxine Sodium) 50 Mcg Tab, 50 MCG PO DAILY, (Reported) Multivitamins (Thera M Plus Tablet) 1 Tab Tab, 1 TAB PO DAILY, (Reported) Omeprazole (Omeprazole) 20 Mg Cap, 20 MG PO BID, (Reported) Sertraline HCl (Sertraline HCl) 50 Mg Tablet, 50 MG PO DAILY, (Reported) Scheduled PRN Acetaminophen (Tylenol) 325 Mg Tablet, 650 MG PO QID PRN for PAIN, (Reported) Allergies Coded Allergies: No Known Allergies (Unverified , 03/23/20) DARIUS HERNADEZ MD April 07, 2020 16:26
[2020-04-07 18:38] LABS: BLOOD UREA NITROGEN 10 MG/DL (7-18); CARBON DIOXIDE LEVEL 29 MEQ/L (21-32); CHLORIDE LEVEL 102 MEQ/L (98-107); CREATININE FOR GFR 0.63 MG/DL (0.55-1.30); GLOMERULAR FILTRATION RATE > 60.0 (>39); GLUCOSE, FASTING 109 MG/DL (70-100); POTASSIUM SERUM 2.9 MEQ/L (3.5-5.1); SODIUM LEVEL 135 MEQ/L (136-145)
[2020-04-07 18:39] LABS: CALCIUM LEVEL 7.5 MG/DL (8.8-10.2)
[2020-04-07] MEDS: KCL 20MEQ in NS 1000ML 1,000 ML IV SCH (19:02)
[2020-04-07] MEDS: ATORVASTATIN 20 MG TAB PO SCH (20:10)
[2020-04-07] MEDS: OMEPRAZOLE 20 MG CAP PO SCH (20:11)
[2020-04-07] MEDS ORDERED: APIXABAN 5 MG TAB (ELIQUIS) PO SCH (21:00)
[2020-04-07] MEDS ORDERED: ENOXAPARIN 100MG/1ML SYRINGE (J1650 PER 10MG) SC SCH (21:00)
[2020-04-07 23:06] LABS: BLOOD UREA NITROGEN 11 MG/DL (7-18); CALCIUM LEVEL 7.3 MG/DL (8.8-10.2); CARBON DIOXIDE LEVEL 29 MEQ/L (21-32); CHLORIDE LEVEL 102 MEQ/L (98-107); CREATININE FOR GFR 0.55 MG/DL (0.55-1.30); GLOMERULAR FILTRATION RATE > 60.0 (>39); GLUCOSE, FASTING 99 MG/DL (70-100); SODIUM LEVEL 138 MEQ/L (136-145)
[2020-04-08] VITALS (14 sets, daily range): BP systolic 92–120; BP diastolic 53–80
[2020-04-08] MEDS ORDERED: KCL 10MEQ/100ML SWI (KRUN) 10 MEQ in IV 1 EA IV ONE ×2
[2020-04-08 00:17] LABS: ALBUMIN 1.7 GM/DL (3.2-5.2)
[2020-04-08] MEDS ORDERED: KCL 10MEQ/100ML SWI (KRUN) 10 MEQ in IV 1 EA IV SCH (01:00)
[2020-04-08] MEDS: CEFEPIME HCL 2 GM in D5W MINI-BAG PLUS 50 ML IV SCH ×2 (01:53→14:01)
[2020-04-08] MEDS ORDERED: POTASSIUM CHLORIDE 10 MEQ SR TABLET PO ONE ×2 (02:00)
[2020-04-08 02:33] LABS: BLOOD UREA NITROGEN 11 MG/DL (7-18); CALCIUM LEVEL 7.6 MG/DL (8.8-10.2); CARBON DIOXIDE LEVEL 31 MEQ/L (21-32); CHLORIDE LEVEL 102 MEQ/L (98-107); CREATININE FOR GFR 0.53 MG/DL (0.55-1.30); GLOMERULAR FILTRATION RATE > 60.0 (>39); GLUCOSE, FASTING 76 MG/DL (70-100); POTASSIUM SERUM 3.3 MEQ/L (3.5-5.1); SODIUM LEVEL 137 MEQ/L (136-145)
[2020-04-08] MEDS ORDERED: VANCOMYCIN HCL 750 MG, VIAL MATE ADAPTER 1 EACH in D5W 250 ML IV SCH (04:00)
[2020-04-08] MEDS: NOREPINEPHRINE BITARTRATE 8 MG in D5W 492 ML IV SCH (04:20)
[2020-04-08] MEDS: LEVOTHYROXINE 50MCG TABLET (0.05MG) PO SCH (05:49)
[2020-04-08 06:50] LABS: HEMATOCRIT 28.6 % (36.0-47.0); HEMOGLOBIN 9.5 g/dl (12.0-15.5); MEAN CORPUSCULAR HEMOGLOBIN 28.1 pg (27.0-33.0); MEAN CORPUSCULAR HGB CONC 33.2 g/dl (32.0-36.5); MEAN CORPUSCULAR VOLUME 84.6 fl (80.0-96.0); PLATELET COUNT, AUTOMATED 334 10^3/uL (150-450); RED BLOOD COUNT 3.38 10^6/uL (4.00-5.40)
[2020-04-08 07:21] LABS: ALBUMIN 1.7 GM/DL (3.2-5.2); ALT/SGPT 16 U/L (12-78); BILIRUBIN,TOTAL 0.5 MG/DL (0.2-1.0); BLOOD UREA NITROGEN 11 MG/DL (7-18); CALCIUM LEVEL 7.2 MG/DL (8.8-10.2); CARBON DIOXIDE LEVEL 28 MEQ/L (21-32); CHLORIDE LEVEL 103 MEQ/L (98-107); CREATININE FOR GFR 0.55 MG/DL (0.55-1.30); GLOMERULAR FILTRATION RATE > 60.0 (>39); GLUCOSE, FASTING 83 MG/DL (70-100); MAGNESIUM LEVEL 1.2 MG/DL (1.8-2.4); POTASSIUM SERUM 3.7 MEQ/L (3.5-5.1); SODIUM LEVEL 136 MEQ/L (136-145); TOTAL PROTEIN 5.7 GM/DL (6.4-8.2)
[2020-04-08] MEDS ORDERED: MAG SULF 1GM/100ML (MAG RUN) 1 GM in IV 1 EA IV ONE (08:00)
[2020-04-08] MEDS: SERTRALINE HCL 50 MG TAB PO SCH (08:32)
[2020-04-08] MEDS: OMEPRAZOLE 20 MG CAP PO SCH ×2 (08:32→20:34)
[2020-04-08] MEDS ORDERED: atenoloL 25 MG TAB PO SCH (09:00)
[2020-04-08 10:48] LABS: BLOOD UREA NITROGEN 11 MG/DL (7-18); CALCIUM LEVEL 7.7 MG/DL (8.8-10.2); CARBON DIOXIDE LEVEL 29 MEQ/L (21-32); CHLORIDE LEVEL 103 MEQ/L (98-107); CREATININE FOR GFR 0.56 MG/DL (0.55-1.30); GLOMERULAR FILTRATION RATE > 60.0 (>39); GLUCOSE, FASTING 96 MG/DL (70-100); POTASSIUM SERUM 3.9 MEQ/L (3.5-5.1); SODIUM LEVEL 135 MEQ/L (136-145)
--- NOTE | 2020-04-08 11:12 | IPNPDOC ---
Text Note Date of Service The patient was seen on 04/08/20. NOTE Subjective: Patient developed blood in the stool overnight, heparin ggt was s topped. Patient denied any fever or chills, nausea, vomiting or dysuria. Objective: VITAL SIGNS: Please see below. GENERAL: awake, alert, NAD HEENT: NCAT, anicteric sclera, JOHANNE NECK: supple, no JVD CARDIOVASCULAR EXAMINATION: Irregularly irregular, tachycardic at rate 110 RESPIRATORY EXAMINATION: CTA b/l, no wheezes/rales/rhonchi ABDOMINAL EXAMINATION: positive bowel sounds x 4, NT EXTREMITIES: no cyanosis, clubbing, edema SKIN: warm, no rashes. NEUROLOGICAL EXAMINATION: AAO x 3, no motor/sensory deficits PSYCHIATRIC EXAMINATION: calm, normal affect Assessment/Plan Patient's 80 years old female with past medical history of diverticulitis abscess perforation, dementia, hypothyroidism, atrial fibrillation, CVA presented to the hospital after she was found unconsciousness in the nursing h ome in atrial fibrillation with rapid ventricular rate. On arrival patient was in rigors with rapid ventricular rate up to 190. Of note patient was recently discharged from the hospital after she was found to have perforated viscus secondary to perforated diverticular due to diverticulitis, status post IR drainage. Patient was discharged from the hospital with course of antibiotics In emergency room patient was found to have hypotension of 80/40, leukocytosis of 16.9, hemoglobin of 11.3, TSH 14.1, K 2.9, lactic acid 4.6. CT of abdomen showed significant right kidney hydronephrosis. Problems (1) Sepsis Patient developed severe sepsis with hypotension, leukocytosis and lactic acidosis on admission Most likely secondary to abdominal abscess On 04/08/20 blood pressure improved after IV fluid Continue with Cefepime IV, vancomycin IV DC Continue IV fluid blood culture positive for gram-negative rods, Await urine culture (2) Intra-abdominal abscess CT showed phlegmonous change in the right pelvis due to prior perforated sigmoid diverticulitis with what appears to be multiloculated air/fluid in the right pelvis Dr. Singh talked to patient about possible surgery, patient declined surgical intervention Will drain abscess by IR US (3) Hypokalemia We'll repeat BMP Replaced (4) Atrial fibrillation with RVR Most likely secondary to sepsis Lopressor IV when necessary Anticoagulation on hold due to GI bleed overnight Right kidney hydronephrosis Most likely secondary to abdominal abscess, hopefully it ll be resolved after drain. We will repeat CT scan on Sunday Plan / VTE VTE Prophylaxis Ordered?: Yes VS,Sheree, I+O VS, Dickbone, I+O Laboratory Tests 04/07/20 12:14 04/07/20 14:44 04/07/20 17:47 04/07/20 22:35 04/08/20 02:00 04/08/20 06:40 Vital Signs Date Time Temp Pulse Resp B/P (MAP) Pulse Ox O2 Delivery O2 Flow Rate FiO2 04/08/20 08:01 99.1 118 20 95/64 (74) 98 Room Air 04/07/20 11:45 10.0 I&O- Last 24 Hours up to 6 AM 04/08/20 05:59 Intake Total 2135 ml Output Total 200 ml Balance 1935 ml TODD JACQUES DO April 08, 2020 11:12
[2020-04-08] MEDS: KCL 20MEQ in NS 1000ML 1,000 ML IV SCH (13:57)
[2020-04-08 14:22] LABS: BLOOD UREA NITROGEN 10 MG/DL (7-18); CALCIUM LEVEL 7.9 MG/DL (8.8-10.2); CARBON DIOXIDE LEVEL 28 MEQ/L (21-32); CHLORIDE LEVEL 102 MEQ/L (98-107); CREATININE FOR GFR 0.61 MG/DL (0.55-1.30); GLOMERULAR FILTRATION RATE > 60.0 (>39); GLUCOSE, FASTING 96 MG/DL (70-100); POTASSIUM SERUM 3.8 MEQ/L (3.5-5.1); SODIUM LEVEL 136 MEQ/L (136-145)
[2020-04-08] MEDS ORDERED: METOPROLOL TART 25 MG TABLET PO ONE (15:00)
--- NOTE | 2020-04-08 15:46 | REP ---
CT-GUIDED ABDOMINAL ABSCESS DRAIN The procedure was performed under the direct supervision of Dr. Ruiz. The patient has a history of A 9.5 cm abdominal abscess seen on a previous CT scan performed on 04/07/2020. The risks and benefits of the procedure were explained to the patient and informed consent was obtained. The abdominal abscess was localized using CT guidance. The skin was prepped and draped in a sterile fashion. 1% lidocaine was used as a local anesthetic. Using CT guidance and trocar technique a 10-Japanese Skater APDL catheter was inserted using trocar technique. 40 ml of beige proteinaceous fluid was withdrawn and sent to lab for analysis. The catheter was affixed to the skin and a sterile dressing was applied. The catheter was connected to a gravity drainage bag. The patient tolerated the procedure well and there were no immediate complications. After the appropriate amount of monitored convalescence the patient was discharged from the department. Electronically Signed by ALYSON Zarate 04/08/2020 03:15 P Electronically Signed by Beau Ruiz MD 04/08/2020 03:37 P
[2020-04-08] MEDS ORDERED: diphenhydrAMINE 50MG/ML VIAL (J1200) IV PRN (20:15)
[2020-04-08] MEDS: ATORVASTATIN 20 MG TAB PO SCH (20:35)
[2020-04-08] MEDS: METOPROLOL TART 25 MG TABLET PO SCH (20:35)
[2020-04-08 22:20] LABS: CLOSTRIDIUM DIFFICILE PCR NEGATIVE (NEGATIVE)
[2020-04-09] VITALS (9 sets, daily range): BP systolic 111–130; BP diastolic 68–82
[2020-04-09] MEDS: CEFEPIME HCL 2 GM in D5W MINI-BAG PLUS 50 ML IV SCH ×2 (01:37→12:37)
[2020-04-09] MEDS: KCL 20MEQ in NS 1000ML 1,000 ML IV SCH ×3 (01:37→16:22)
[2020-04-09] MEDS ORDERED: METOPROLOL 5 MG/5 ML VIAL IV STA (04:39)
[2020-04-09 05:07] LABS: HEMATOCRIT 25.6 % (36.0-47.0); HEMOGLOBIN 8.6 g/dl (12.0-15.5); MEAN CORPUSCULAR HEMOGLOBIN 27.8 pg (27.0-33.0); MEAN CORPUSCULAR HGB CONC 33.6 g/dl (32.0-36.5); MEAN CORPUSCULAR VOLUME 82.8 fl (80.0-96.0); PLATELET COUNT, AUTOMATED 328 10^3/uL (150-450); RED BLOOD COUNT 3.09 10^6/uL (4.00-5.40); WHITE BLOOD COUNT 11.3 10^3/uL (4.0-10.0)
[2020-04-09 05:21] LABS: BLOOD UREA NITROGEN 10 MG/DL (7-18); CALCIUM LEVEL 7.5 MG/DL (8.8-10.2); CARBON DIOXIDE LEVEL 26 MEQ/L (21-32); CHLORIDE LEVEL 105 MEQ/L (98-107); CREATININE FOR GFR 0.38 MG/DL (0.55-1.30); GLOMERULAR FILTRATION RATE > 60.0 (>39); GLUCOSE, FASTING 84 MG/DL (70-100); MAGNESIUM LEVEL 1.4 MG/DL (1.8-2.4); PHOSPHORUS LEVEL 1.7 MG/DL (2.5-4.9); POTASSIUM SERUM 3.7 MEQ/L (3.5-5.1); SODIUM LEVEL 137 MEQ/L (136-145)
[2020-04-09] MEDS: LEVOTHYROXINE 50MCG TABLET (0.05MG) PO SCH (05:56)
[2020-04-09] MEDS ORDERED: MAG SULF 1GM/100ML (MAG RUN) 1 GM in IV 1 EA IV ONE (07:00)
[2020-04-09] MEDS: OMEPRAZOLE 20 MG CAP PO SCH ×2 (08:31→21:29)
[2020-04-09] MEDS: SERTRALINE HCL 50 MG TAB PO SCH (08:31)
[2020-04-09] MEDS: METOPROLOL TART 25 MG TABLET PO SCH ×4 (08:31→21:00)
[2020-04-09] MEDS ORDERED: MAG SULF 1GM/100ML (MAG RUN) 1 GM in IV 1 EA IV SCH (08:45)
--- NOTE | 2020-04-09 10:13 | ECGEPIP ---
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
--- NOTE | 2020-04-09 10:25 | IPNPDOC ---
Text Note Date of Service The patient was seen on 04/09/20. NOTE Patient remains with anatomically stable. She underwent percutaneous drainage of her pelvic abscess yesterday. Her leukocytosis is improved. She denies any ongoing abdominal pain. She is tolerating soft diet. Vital signs stable. Still in A. fib, heart rate low 100s On exam She looks comfortable, frail-appearing Awake, alert and oriented. Abdominal exam shows relatively benign, flat abdomen. Nontender on palpation. She has a percutaneous drain with a slightly bloody, purulent drainage in the tube and small amount in the bag. Impression and plan Impression diverticulitis with recurrent abscess status post percutaneous drainage. Since this is previously been drained, I have told the patient that we should not remove the drain out right and make sure that the etiology of the infection should be clarified first as well as we need to make sure that the abscess pocke t fully collapses. This will take several weeks to a couple months to figure out. I would like to repeat the CT, with contrast this time on Sunday to evaluate for the degree of inflammation related to the colon, state of the abscess and also the right-sided hydronephrosis. If this is all better than she could probably go home with the drain and follow-up with me for an outpatient colonoscopy in another couple weeks on antibiotics depending on what grows from the drain culture. I will also send for CAD as a marker since I'm not too sure that this is just plain diverticulitis. VS,Dickbone, I+O VS, Fishbone, I+O Laboratory Tests 04/08/20 13:47 04/09/20 04:45 04/09/20 04:54 Vital Signs Date Time Temp Pulse Resp B/P (MAP) Pulse Ox O2 Delivery O2 Flow Rate FiO2 04/09/20 08:31 103 130/82 04/09/20 08:00 98.6 18 95 Room Air 04/07/20 11:45 10.0 I&O- Last 24 Hours up to 6 AM 04/09/20 06:00 Intake Total 2019 ml Output Total 670 ml Balance 1350 ml DARIUS HERNADEZ MD April 09, 2020 10:25
--- NOTE | 2020-04-09 10:53 | IPNPDOC ---
Text Note Date of Service The patient was seen on 04/09/20. NOTE Subjective: No any acute event overnight. Serosanguineous fluid via drainage around 60 mL. Patient denied any fever or chills, nausea, vomiting or dysuria. Objective: VITAL SIGNS: Please see below. GENERAL: awake, alert, NAD HEENT: NCAT, anicteric sclera, JOHANNE NECK: supple, no JVD CARDIOVASCULAR EXAMINATION: Irregularly irregular, tachycardic at rate 110 RESPIRATORY EXAMINATION: CTA b/l, no wheezes/rales/rhonchi ABDOMINAL EXAMINATION: positive bowel sounds x 4, NT EXTREMITIES: no cyanosis, clubbing, edema SKIN: warm, no rashes. NEUROLOGICAL EXAMINATION: AAO x 3, no motor/sensory deficits PSYCHIATRIC EXAMINATION: calm, normal affect Assessment/Plan Patient's 80 years old female with past medical history of diverticulitis abscess perforation, dementia, hypothyroidism, atrial fibrillation, CVA presented to the hospital after [facility] in atrial fibrillation with rapid ventricular rate. On arrival patient was in rigors with rapid ventricular rate up to 190. Of note patient was recently discharged from the hospital after she was found to have perforated viscus secondary to perforated diverticular due to diverticulitis, status post IR drainage. Patient was discharged from the hospital with course of antibiotics In emergency room patient was found to have hypotension of 80/40, leukocytosis of 16.9, hemoglobin of 11.3, TSH 14.1, K 2.9, lactic acid 4.6. CT of abdomen showed significant right kidney hydronephrosis. Problems (1) Sepsis Resolved Patient developed severe sepsis with hypotension, leukocytosis and lactic acidosis on admission Most likely secondary to abdominal abscess On 04/08/20 blood pressure improved after IV fluid Continue with Cefepime IV, vancomycin IV DC blood culture positive for gram-negative rods Await urine culture (2) Intra-abdominal abscess CT showed phlegmonous change in the right pelvis due to prior perforated sigmoid diverticulitis with what appears to be multiloculated air/fluid in the right pelvis Dr. Singh talked to patient about possible surgery, patient declined surgical intervention abscess by IR US abscess was drained on 04/08/20, abscess culture positive for gram-negative rods and gram-positive rods We'll repeat abdominal CT scan on Sunday. We'll check CEA, there is concern for colon cancer. Colonoscopy in the outpatient settings (3) Hypokalemia We'll repeat BMP Replaced (4) Atrial fibrillation with RVR Most likely secondary to sepsis Lopressor IV when necessary Anticoagulation on hold due to GI bleed overnight I increased her dose of beta blockers Right kidney hydronephrosis Most likely secondary to abdominal abscess, hopefully it ll be resolved after drain. We will repeat CT scan on Sunday Plan / VTE VTE Prophylaxis Ordered?: Yes VS,Fishbone, I+O VS, Fishbone, I+O Laboratory Tests 04/08/20 13:47 04/09/20 04:45 04/09/20 04:54 Vital Signs Date Time Temp Pulse Resp B/P (MAP) Pulse Ox O2 Delivery O2 Flow Rate FiO2 04/09/20 08:00 98.6 104 18 130/82 (98) 95 Room Air 04/07/20 11:45 10.0 I&O- Last 24 Hours up to 6 AM 04/09/20 05:59 Intake Total 2915 ml Output Total 670 ml Balance 2245 ml TODD JACQUES DO April 09, 2020 10:53
[2020-04-09 13:18] LABS: BLOOD UREA NITROGEN 9 MG/DL (7-18); CALCIUM LEVEL 7.6 MG/DL (8.8-10.2); CARBON DIOXIDE LEVEL 27 MEQ/L (21-32); CHLORIDE LEVEL 103 MEQ/L (98-107); GLOMERULAR FILTRATION RATE > 60.0 (>39); GLUCOSE, FASTING 80 MG/DL (70-100); POTASSIUM SERUM 3.7 MEQ/L (3.5-5.1); SODIUM LEVEL 136 MEQ/L (136-145)
[2020-04-09] MEDS: ATORVASTATIN 20 MG TAB PO SCH (21:29)
[2020-04-10] MEDS: CEFEPIME HCL 2 GM in D5W MINI-BAG PLUS 50 ML IV SCH (00:58)
[2020-04-10] MEDS: KCL 20MEQ in NS 1000ML 1,000 ML IV SCH ×2 (04:26→18:20)
[2020-04-10] MEDS: LEVOTHYROXINE 50MCG TABLET (0.05MG) PO SCH (05:46)
[2020-04-10 06:00] VITALS: BP 121/80
[2020-04-10 06:44] LABS: HEMATOCRIT 24.3 % (36.0-47.0); HEMOGLOBIN 8.3 g/dl (12.0-15.5); MEAN CORPUSCULAR HEMOGLOBIN 28.1 pg (27.0-33.0); MEAN CORPUSCULAR HGB CONC 34.2 g/dl (32.0-36.5); MEAN CORPUSCULAR VOLUME 82.4 fl (80.0-96.0); PLATELET COUNT, AUTOMATED 318 10^3/uL (150-450); RED BLOOD COUNT 2.95 10^6/uL (4.00-5.40); WHITE BLOOD COUNT 8.4 10^3/uL (4.0-10.0)
[2020-04-10 08:36] LABS: BLOOD UREA NITROGEN 8 MG/DL (7-18); CALCIUM LEVEL 7.4 MG/DL (8.8-10.2); CARBON DIOXIDE LEVEL 27 MEQ/L (21-32); CHLORIDE LEVEL 105 MEQ/L (98-107); CREATININE FOR GFR 0.35 MG/DL (0.55-1.30); GLOMERULAR FILTRATION RATE > 60.0 (>39); GLUCOSE, FASTING 83 MG/DL (70-100); POTASSIUM SERUM 3.4 MEQ/L (3.5-5.1); SODIUM LEVEL 138 MEQ/L (136-145)
--- NOTE | 2020-04-10 09:31 | IPN ---
DATE: 04/10/2020 The patient was a admitted several days ago with a recurrent pelvic abscess/diverticular abscess and had this percutaneously drained. Since that time, her white count has dropped to normal and she has been afebrile. She states that she has been eating well, although she is a poor historian and has a history of dementia and thus history somewhat vague, but in any case seems to be doing rather well at this point. No new findings were appreciated. She can continue on a regular diet. Continue on IV antibiotics. Dr. Hernández's plan for her was to repeat the CAT scan of her pelvis on Sunday. Until then, just continue with te antibiotics and if the abscess cavity has decompressed nicely, could possibly discharged to home with the drain in place, although he etiology of this is concerning given its recurrence and that it may not be a simple diverticular abscess and may be related to benign or malignant etiology. Thus, he has discussed possibly of proceeding with colonoscopy at some point in the near future. In any case, will continue with our current treatment at this time.
[2020-04-10] MEDS: SERTRALINE HCL 50 MG TAB PO SCH (10:02)
[2020-04-10] MEDS: MAGNESIUM CHLORIDE 64 MG TABCR (SLO MAG) PO SCH (10:02)
[2020-04-10] MEDS: OMEPRAZOLE 20 MG CAP PO SCH ×2 (10:02→21:04)
[2020-04-10] MEDS: METOPROLOL TART 25 MG TABLET PO SCH ×3 (10:02→21:00)
--- NOTE | 2020-04-10 11:29 | IPNPDOC ---
Text Note Date of Service The patient was seen on 04/10/20. NOTE Subjective: No any acute event overnight. Patient denied any fever or chills, nausea, vomiting or dysuria. Objective: VITAL SIGNS: Please see below. GENERAL: awake, alert, NAD HEENT: NCAT, anicteric sclera, JOHANNE NECK: supple, no JVD CARDIOVASCULAR EXAMINATION: Irregularly irregular, tachycardic at rate 110 RESPIRATORY EXAMINATION: CTA b/l, no wheezes/rales/rhonchi ABDOMINAL EXAMINATION: positive bowel sounds x 4, NT EXTREMITIES: no cyanosis, clubbing, edema SKIN: warm, no rashes. NEUROLOGICAL EXAMINATION: AAO x 3, no motor/sensory deficits PSYCHIATRIC EXAMINATION: calm, normal affect Assessment/Plan Patient's 80 years old female with past medical history of diverticulitis abscess perforation, dementia, hypothyroidism, atrial fibrillation, CVA presented to the hospital after she was found unconsciousness in the snf in atrial fibrillation with rapid ventricular rate. On arrival patient was in rigors with rapid ventricular rate up to 190. Of note patient was recently discharged from the hospital after she was found to have perforated viscus secondary to perforated diverticular due to diverticulitis, status post IR drainage. Patient was discharged from the hospital with course of antibiotics In emergency room patient was found to have hypotension of 80/40, leukocytosis of 16.9, hemoglobin of 11.3, TSH 14.1, K 2.9, lactic acid 4.6. CT of abdomen s howed significant right kidney hydronephrosis. Problems (1) Sepsis Resolved Patient developed severe sepsis with hypotension, leukocytosis and lactic acidosis on admission Most likely secondary to abdominal abscess On 04/08/20 blood pressure improved after IV fluid DC Cefepime IV, vancomycin IV DC Ceftriaxone IV started on 04/10/20 blood culture positive for gram-negative Escherichia coli, abscess culture positive for Escherichia coli Await urine culture (2) Intra-abdominal abscess CT showed phlegmonous change in the right pelvis due to prior perforated sigmoid diverticulitis with what appears to be multiloculated air/fluid in the right pelvis Dr. Singh talked to patient about possible surgery, patient declined surgical intervention abscess by IR US abscess was drained on 04/08/20, continuous drainage placed abscess culture positive for Escherichia coli We'll repeat abdominal CT scan on Sunday. We'll check CEA, there is concern for colon cancer. Colonoscopy in the outpatient settings (3) Hypokalemia We'll repeat BMP Replaced (4) Atrial fibrillation with RVR Most likely secondary to sepsis Lopressor IV when necessary Anticoagulation on hold due to GI bleed overnight I increased her dose of beta blockers Right kidney hydronephrosis Most likely secondary to abdominal abscess, hopefully it ll be resolved after drain. We will repeat CT scan on Sunday Normocytic anemia Multifactorial, superimposed with GI blood loss We will check iron panel, B12 and folate VS,Fishbone, I+O VS, Fishbone, I+O Laboratory Tests 04/09/20 12:01 04/10/20 06:15 04/10/20 06:18 Vital Signs Date Time Temp Pulse Resp B/P (MAP) Pulse Ox O2 Delivery O2 Flow Rate FiO2 04/10/20 10:02 106 126/84 04/10/20 06:00 97.7 18 95 Room Air 04/07/20 11:45 10.0 I&O- Last 24 Hours up to 6 AM 04/10/20 06:00 Intake Total 2320 ml Output Total 640 ml Balance 1680 ml TODD JACQUES DO April 10, 2020 11:29
[2020-04-10 12:00] LABS: IRON (FE) 32 UG/DL (50-170); PERCENT SATURATION 35.6 % (13.2-45.0); TOTAL IRON BINDING CAPACITY 90 UG/DL (250-450)
[2020-04-10] MEDS ORDERED: POTASSIUM CHLORIDE 10 MEQ SR TABLET PO ONE (12:00)
[2020-04-10] MEDS: cefTRIAXone SOD 1 GM in D5W MINI-BAG PLUS 50 ML IV SCH ×2 (12:27→23:49)
[2020-04-10 14:00] VITALS: BP 126/94
[2020-04-10] MEDS: ACETAMINOPHEN TAB 650MG DOSE (2X325MG) PO PRN (15:14)
[2020-04-10] MEDS: ATORVASTATIN 20 MG TAB PO SCH (21:04)
[2020-04-10 22:00] VITALS: BP 100/68
[2020-04-11] MEDS: LEVOTHYROXINE 50MCG TABLET (0.05MG) PO SCH (05:33)
[2020-04-11 06:00] VITALS: BP 110/76
[2020-04-11] MEDS: KCL 20MEQ in NS 1000ML 1,000 ML IV SCH ×2 (06:14→23:45)
[2020-04-11 06:21] LABS: HEMATOCRIT 26.5 % (36.0-47.0); HEMOGLOBIN 8.7 g/dl (12.0-15.5); MEAN CORPUSCULAR HEMOGLOBIN 27.3 pg (27.0-33.0); MEAN CORPUSCULAR HGB CONC 32.8 g/dl (32.0-36.5); MEAN CORPUSCULAR VOLUME 83.1 fl (80.0-96.0); PLATELET COUNT, AUTOMATED 333 10^3/uL (150-450); RED BLOOD COUNT 3.19 10^6/uL (4.00-5.40); WHITE BLOOD COUNT 9.5 10^3/uL (4.0-10.0)
[2020-04-11 08:06] LABS: BLOOD UREA NITROGEN 6 MG/DL (7-18); CALCIUM LEVEL 7.7 MG/DL (8.8-10.2); CARBON DIOXIDE LEVEL 26 MEQ/L (21-32); CHLORIDE LEVEL 105 MEQ/L (98-107); CREATININE FOR GFR 0.36 MG/DL (0.55-1.30); GLOMERULAR FILTRATION RATE > 60.0 (>39); GLUCOSE, FASTING 72 MG/DL (70-100); POTASSIUM SERUM 3.8 MEQ/L (3.5-5.1); SODIUM LEVEL 137 MEQ/L (136-145)
[2020-04-11] MEDS: MAGNESIUM CHLORIDE 64 MG TABCR (SLO MAG) PO SCH (09:59)
[2020-04-11] MEDS: SERTRALINE HCL 50 MG TAB PO SCH (09:59)
[2020-04-11] MEDS: OMEPRAZOLE 20 MG CAP PO SCH ×2 (09:59→20:34)
[2020-04-11] MEDS: METOPROLOL TART 25 MG TABLET PO SCH ×3 (10:00→20:33)
[2020-04-11] MEDS: cefTRIAXone SOD 1 GM in D5W MINI-BAG PLUS 50 ML IV SCH ×2 (11:17→23:50)
--- NOTE | 2020-04-11 12:19 | IPNPDOC ---
Text Note Date of Service The patient was seen on 04/11/20. NOTE Subjective: No any acute event overnight. Patient stated that she has a good appetite and slept well Patient denied any fever or chills, nausea, vomiting or dysuria. Objective: VITAL SIGNS: Please see below. GENERAL: awake, alert, NAD HEENT: NCAT, anicteric sclera, JOHANNE NECK: supple, no JVD CARDIOVASCULAR EXAMINATION: Irregularly irregular, tachycardic at rate 110 RESPIRATORY EXAMINATION: CTA b/l, no wheezes/rales/rhonchi ABDOMINAL EXAMINATION: positive bowel sounds x 4, NT EXTREMITIES: no cyanosis, clubbing, edema SKIN: warm, no rashes. NEUROLOGICAL EXAMINATION: AAO x 3, no motor/sensory deficits PSYCHIATRIC EXAMINATION: calm, normal affect Assessment/Plan Patient's 80 years old female with past medical history of diverticulitis abscess perforation, dementia, hypothyroidism, atrial fibrillation, CVA presented to the hospital after she was found unconsciousness in the snf in atrial fibrillation with rapid ventricular rate. On arrival patient was in rigors with rapid ventricular rate up to 190. Of note patient was recently discharged from the hospital after she was found to have perforated viscus secondary to perforated diverticular due to diverticulitis, status post IR drainage. Patient was discharged from the hospital with course of antibiotics In emergency room patient was found to have hypotension of 80/40, leukocytosis of 16.9, hemoglobin of 11.3, TSH 14.1, K 2.9, lactic acid 4.6. CT of abdomen showed significant right kidney hydronephrosis. Problems (1) Sepsis Resolved Patient developed severe sepsis with hypotension, leukocytosis and lactic acidosis on admission Most likely secondary to abdominal abscess On 04/08/20 blood pressure improved after IV fluid DC Cefepime IV, vancomycin IV DC Ceftriaxone IV started on 04/10/20 blood culture positive for gram-negative Escherichia coli, abscess culture positive for Escherichia coli and Streptococcus mitis Await urine culture (2) Intra-abdominal abscess CT showed phlegmonous change in the right pelvis due to prior perforated sigmoid diverticulitis with what appears to be multiloculated air/fluid in the right pelvis Dr. Singh talked to patient about possible surgery, patient declined surgical intervention abscess by IR US abscess was drained on 04/08/20, continuous drainage placed abscess culture positive for Escherichia coli We'll repeat abdominal CT scan on Sunday. CEA pending, there is concern for colon cancer. Colonoscopy in the outpatient settings (3) Hypokalemia Resolved (4) Atrial fibrillation with RVR Most likely secondary to sepsis Lopressor IV when necessary Anticoagulation on hold due to GI bleed I increased her dose of beta blockers, heart rate is under control Right kidney hydronephrosis Most likely secondary to abdominal abscess, hopefully it ll be resolved after drain. We will repeat CT scan on Sunday Normocytic anemia Multifactorial, superimposed with GI blood loss Patient has low iron. We will start iron supplementation B12 and folate pending VS,Fishbone, I+O VS, Fishbone, I+O Laboratory Tests 04/11/20 05:34 04/11/20 05:36 Vital Signs Date Time Temp Pulse Resp B/P (MAP) Pulse Ox O2 Delivery O2 Flow Rate FiO2 04/11/20 10:00 100 107/78 04/11/20 06:00 97.3 16 95 Room Air 04/07/20 11:45 10.0 I&O- Last 24 Hours up to 6 AM 04/11/20 06:00 Intake Total 2260 ml Output Total 10 ml Balance 2250 ml TODD JACQUES DO April 11, 2020 12:19
[2020-04-11 14:00] VITALS: BP 120/75
[2020-04-11] MEDS: IRON POLYSAC (NIFEREX) 150 MG CAP PO SCH (20:34)
[2020-04-11] MEDS: ATORVASTATIN 20 MG TAB PO SCH (20:34)
[2020-04-11 22:00] VITALS: BP 115/78
[2020-04-12] MEDS: LEVOTHYROXINE 50MCG TABLET (0.05MG) PO SCH (05:35)
[2020-04-12 06:00] VITALS: BP 116/79
[2020-04-12 06:43] LABS: HEMATOCRIT 25.6 % (36.0-47.0); HEMOGLOBIN 8.4 g/dl (12.0-15.5); MEAN CORPUSCULAR HEMOGLOBIN 27.1 pg (27.0-33.0); MEAN CORPUSCULAR HGB CONC 32.8 g/dl (32.0-36.5); MEAN CORPUSCULAR VOLUME 82.6 fl (80.0-96.0); PLATELET COUNT, AUTOMATED 309 10^3/uL (150-450); WHITE BLOOD COUNT 11.4 10^3/uL (4.0-10.0)
[2020-04-12] MEDS ORDERED: ISOVUE-370 76% 100ML VIAL As Ordered ONE (08:12)
[2020-04-12 08:59] LABS: BLOOD UREA NITROGEN 6 MG/DL (7-18); CALCIUM LEVEL 7.6 MG/DL (8.8-10.2); CARBON DIOXIDE LEVEL 27 MEQ/L (21-32); CHLORIDE LEVEL 103 MEQ/L (98-107); CREATININE FOR GFR 0.32 MG/DL (0.55-1.30); GLOMERULAR FILTRATION RATE > 60.0 (>39); GLUCOSE, FASTING 81 MG/DL (70-100); POTASSIUM SERUM 3.2 MEQ/L (3.5-5.1); SODIUM LEVEL 138 MEQ/L (136-145)
[2020-04-12] MEDS: IRON POLYSAC (NIFEREX) 150 MG CAP PO SCH ×2 (11:04→21:12)
[2020-04-12] MEDS: MAGNESIUM CHLORIDE 64 MG TABCR (SLO MAG) PO SCH (11:04)
[2020-04-12] MEDS: OMEPRAZOLE 20 MG CAP PO SCH ×2 (11:05→21:13)
[2020-04-12] MEDS: SERTRALINE HCL 50 MG TAB PO SCH (11:05)
[2020-04-12] MEDS: METOPROLOL TART 25 MG TABLET PO SCH (11:05)
[2020-04-12] MEDS: KCL 20MEQ in NS 1000ML 1,000 ML IV SCH ×2 (11:06→23:08)
[2020-04-12] MEDS: cefTRIAXone SOD 1 GM in D5W MINI-BAG PLUS 50 ML IV SCH ×2 (12:34→23:08)
[2020-04-12 14:00] VITALS: BP 114/74
--- NOTE | 2020-04-12 14:23 | IPNPDOC ---
Text Note Date of Service The patient was seen on 04/12/20. NOTE Subjective: No any acute event overnight. Patient denied any fever or chills, nausea, vomiting or dysuria. Objective: VITAL SIGNS: Please see below. GENERAL: awake, alert, NAD HEENT: NCAT, anicteric sclera, JOHANNE NECK: supple, no JVD CARDIOVASCULAR EXAMINATION: Irregularly irregular, tachycardic at rate 110 RESPIRATORY EXAMINATION: CTA b/l, no wheezes/rales/rhonchi ABDOMINAL EXAMINATION: positive bowel sounds x 4, NT EXTREMITIES: no cyanosis, clubbing, edema SKIN: warm, no rashes. NEUROLOGICAL EXAMINATION: AAO x 3, no motor/sensory deficits PSYCHIATRIC EXAMINATION: calm, normal affect Assessment/Plan Patient's 80 years old female with past medical history of diverticulitis abscess perforation, dementia, hypothyroidism, atrial fibrillation, CVA presented to the hospital after she was [facility]ness [facility] in atrial fibrillation with rapid ventricular rate. On arrival patient was in rigors with rapid ventricular rate up to 190. Of note patient was recently discharged from the hospital after she was found to have perforated viscus secondary to perforated diverticular due to diverticulitis, status post IR drainage. Patient was discharged from the hospital with course of antibiotics In emergency room patient was found to have hypotension of 80/40, leukocytosis of 16.9, hemoglobin of 11.3, TSH 14.1, K 2.9, lactic acid 4.6. CT of abdomen s howed significant right kidney hydronephrosis. Problems (1) Sepsis Resolved Patient developed severe sepsis with hypotension, leukocytosis and lactic acidosis on admission Most likely secondary to abdominal abscess On 04/08/20 blood pressure improved after IV fluid DC Cefepime IV, vancomycin IV DC Ceftriaxone IV started on 04/10/20 blood culture positive for gram-negative Escherichia coli, abscess culture positive for Escherichia coli and Streptococcus mitis Repeat blood culture negative (2) Intra-abdominal abscess CT showed phlegmonous change in the right pelvis due to prior perforated sigmoid diverticulitis with what appears to be multiloculated air/fluid in the right pelvis Dr. Singh talked to patient about possible surgery, patient declined surgical intervention abscess by IR US abscess was drained on 04/08/20, continuous drainage placed abscess culture positive for Escherichia coli on 04/12/2020 CT scan was done, result pending CEA pending, there is concern for colon cancer, given positive stool for occult blood. Patient could have perforation secondary malignancies Colonoscopy in the outpatient settings (3) Hypokalemia Resolved (4) Atrial fibrillation with RVR Most likely secondary to sepsis Lopressor IV when necessary Anticoagulation on hold due to GI bleed I increased her dose of beta blockers, heart rate is under control Right kidney hydronephrosis Most likely secondary to abdominal abscess, hopefully it ll be resolved after drain. Await CT scan results Normocytic anemia Multifactorial, superimposed with GI blood loss Patient has low iron. We will start iron supplementation B12 and folate pending Electrolyte imbalance K replaced VS,Fishbone, I+O VS, Fishbone, I+O Laboratory Tests 04/12/20 06:10 04/12/20 06:12 Vital Signs Date Time Temp Pulse Resp B/P (MAP) Pulse Ox O2 Delivery O2 Flow Rate FiO2 04/12/20 14:00 97.2 105 19 114/74 (87) 97 Room Air 04/07/20 11:45 10.0 I&O- Last 24 Hours up to 6 AM 04/12/20 06:00 Intake Total 2400 ml Output Total 5 ml Balance 2395 ml TODD JACQUES DO April 12, 2020 14:23
[2020-04-12] MEDS: ATORVASTATIN 20 MG TAB PO SCH (21:13)
[2020-04-12] MEDS: METOPROLOL TART 50 MG TAB PO SCH (21:14)
[2020-04-12 22:00] VITALS: BP 122/72
[2020-04-13] MEDS: LEVOTHYROXINE 50MCG TABLET (0.05MG) PO SCH (05:44)
[2020-04-13 05:59] LABS: HEMATOCRIT 24.2 % (36.0-47.0); MEAN CORPUSCULAR HEMOGLOBIN 27.5 pg (27.0-33.0); MEAN CORPUSCULAR HGB CONC 33.1 g/dl (32.0-36.5); MEAN CORPUSCULAR VOLUME 83.2 fl (80.0-96.0); PLATELET COUNT, AUTOMATED 301 10^3/uL (150-450); RED BLOOD COUNT 2.91 10^6/uL (4.00-5.40); WHITE BLOOD COUNT 8.3 10^3/uL (4.0-10.0)
[2020-04-13 06:00] VITALS: BP 110/70
[2020-04-13] MEDS ORDERED: POTASSIUM CHLORIDE 10 MEQ SR TABLET PO ONE (08:00)
[2020-04-13 08:19] LABS: BLOOD UREA NITROGEN 4 MG/DL (7-18); CALCIUM LEVEL 7.4 MG/DL (8.8-10.2); CARBON DIOXIDE LEVEL 29 MEQ/L (21-32); CHLORIDE LEVEL 103 MEQ/L (98-107); CREATININE FOR GFR 0.24 MG/DL (0.55-1.30); GLOMERULAR FILTRATION RATE > 60.0 (>39); GLUCOSE, FASTING 78 MG/DL (70-100); POTASSIUM SERUM 3.1 MEQ/L (3.5-5.1); SODIUM LEVEL 138 MEQ/L (136-145)
[2020-04-13] MEDS: MAGNESIUM CHLORIDE 64 MG TABCR (SLO MAG) PO SCH (09:36)
[2020-04-13] MEDS: IRON POLYSAC (NIFEREX) 150 MG CAP PO SCH ×2 (09:36→20:12)
[2020-04-13] MEDS: OMEPRAZOLE 20 MG CAP PO SCH ×2 (09:36→20:12)
[2020-04-13] MEDS: SERTRALINE HCL 50 MG TAB PO SCH (09:36)
[2020-04-13] MEDS: METOPROLOL TART 50 MG TAB PO SCH ×2 (09:37→21:00)
[2020-04-13 10:17] LABS: FOLATE 9.2 NG/ML (>5.4); VITAMIN B12 LEVEL 580 PG/ML (247-911)
[2020-04-13] MEDS: KCL 20MEQ in NS 1000ML 1,000 ML IV SCH (12:07)
[2020-04-13] MEDS: cefTRIAXone SOD 1 GM in D5W MINI-BAG PLUS 50 ML IV SCH (12:46)
--- NOTE | 2020-04-13 13:34 | IPNPDOC ---
Text Note Date of Service The patient was seen on 04/13/20. NOTE Patient revisited today. She seems to have done well post-percutaneous drainage of her intraabdominal abscess. She had a follow up CT scan of the abdomen and pelvis with contrast done yesterday. Not ready officially yet, but I reviewed the images myself. Shows improvement/decrease of the abscess cavity, persistence of the right hydronephrosis. Her leukocytosis has resolved. She has been afebrile. She is tolerating diet and she does not complain of any abdominal discomfort. HD stable, afebrile. Abdominal exam shows benign, nodistended, nontender abdomen. Right side perc drain with small amount of brownish, purulent material in tube and bag. Past 3 days this has been 40/0/5mL drainage. diverticular abscess (probably) I think we can switch to oral antibiotics depending on the sensitivity of the drainage cultures. Her blood cultures have been negative now and was growing similar organisms (e.coli) from the drain cultures. There is improvement of the abscess cavity with decreased drainage but would keep the drain until we can demonstrate that the cavity will remain collapsed. She can follow up with me in 2 weeks to schedule colonoscopy. She still does not want any surgery with regards to the colon; thus may need to keep the drain so long as the cavity of the abscess does not collapse by itself and depending on the etiology of the perforation (diverticular vs malignancy.) VS,Fishbone, I+O VS, Fishbone, I+O Laboratory Tests 04/13/20 05:37 04/13/20 07:59 Vital Signs Date Time Temp Pulse Resp B/P (MAP) Pulse Ox O2 Delivery O2 Flow Rate FiO2 04/13/20 09:37 90 116/72 04/13/20 06:00 98.2 16 95 Room Air 04/07/20 11:45 10.0 I&O- Last 24 Hours up to 6 AM 04/13/20 06:00 Intake Total 560 ml Output Total 0 ml Balance 560 ml DARIUS HERNADEZ MD April 13, 2020 13:34
[2020-04-13 14:00] VITALS: BP 107/70
--- NOTE | 2020-04-13 14:08 | IPNPDOC ---
Text Note Date of Service The patient was seen on 04/13/20. NOTE Subjective: No any acute event overnight. Past 3 days this has been 40/0/5mL drainage. Patient denied any fever or chills, nausea, vomiting or dysuria. Objective: VITAL SIGNS: Please see below. GENERAL: awake, alert, NAD HEENT: NCAT, anicteric sclera, JOHANNE NECK: supple, no JVD CARDIOVASCULAR EXAMINATION: Irregularly irregular RESPIRATORY EXAMINATION: CTA b/l, no wheezes/rales/rhonchi ABDOMINAL EXAMINATION: positive bowel sounds x 4, NT EXTREMITIES: no cyanosis, clubbing, edema SKIN: warm, no rashes. NEUROLOGICAL EXAMINATION: AAO x 3, no motor/sensory deficits PSYCHIATRIC EXAMINATION: calm, normal affect Assessment/Plan Patient's 80 years old female with past medical history of diverticulitis abscess perforation, dementia, hypothyroidism, atrial fibrillation, CVA p resented to the hospital after she was found unconsciousness in the senior living in atrial fibrillation with rapid ventricular rate. On arrival patient was in rigors with rapid ventricular rate up to 190. Of note patient was recently discharged from the hospital after she was found to have perforated viscus secondary to perforated diverticular due to diverticulitis, status post IR drainage. Patient was discharged from the hospital with course of antibiotics In emergency room patient was found to have hypotension of 80/40, leukocytosis of 16.9, hemoglobin of 11.3, TSH 14.1, K 2.9, lactic acid 4.6. CT of abdomen showed significant right kidney hydronephrosis. Problems (1) Sepsis Resolved Patient developed severe sepsis with hypotension, leukocytosis and lactic acidosis on admission Most likely secondary to abdominal abscess On 04/08/20 blood pressure improved after IV fluid DC Cefepime IV, vancomycin IV DC Ceftriaxone IV started on 04/10/20 blood culture positive for gram-negative Escherichia coli, abscess culture positive for Escherichia coli and Streptococcus mitis Repeat blood culture negative (2) Intra-abdominal abscess CT showed phlegmonous change in the right pelvis due to prior perforated sigmoid diverticulitis with what appears to be multiloculated air/fluid in the right p petra Singh talked to patient about possible surgery, patient declined surgical intervention abscess by IR US abscess was drained on 04/08/20, continuous drainage placed abscess culture positive for Escherichia coli on 04/12/2020 CT scan was done, result pending CEA wnl, there is concern for colon cancer, given positive stool for occult blood. Patient could have perforation secondary malignancies. Colonoscopy in the outpatient settings (3) Hypokalemia replaced (4) Atrial fibrillation with RVR Most likely secondary to sepsis is Lopressor IV when necessary Anticoagulation on hold due to GI bleed I increased her dose of beta blockers, heart rate is under control Right kidney hydronephrosis Most likely secondary to abdominal abscess Await CT scan results Normocytic anemia Multifactorial, superimposed with GI blood loss Patient has low iron. We will start iron supplementation B12 and folate wnl Electrolyte imbalance K replaced VS,Fishbone, I+O VS, Fishbone, I+O Laboratory Tests 04/13/20 05:37 04/13/20 07:59 Vital Signs Date Time Temp Pulse Resp B/P (MAP) Pulse Ox O2 Delivery O2 Flow Rate FiO2 04/13/20 09:37 90 116/72 04/13/20 06:00 98.2 16 95 Room Air 04/07/20 11:45 10.0 I&O- Last 24 Hours up to 6 AM 04/13/20 06:00 Intake Total 560 ml Output Total 0 ml Balance 560 ml TODD JACQUES DO April 13, 2020 14:08
[2020-04-13] MEDS: metroNIDAZOLE (FLAGYL) 500 MG TAB PO SCH (20:12)
[2020-04-13] MEDS: ATORVASTATIN 20 MG TAB PO SCH (20:12)
[2020-04-13] MEDS: cefTRIAXone SOD 2 GM in D5W MINI-BAG PLUS 50 ML IV SCH (20:13)
[2020-04-13 22:00] VITALS: BP 112/68
[2020-04-14] MEDS: KCL 20MEQ in NS 1000ML 1,000 ML IV SCH ×2 (00:36→14:08)
[2020-04-14] MEDS: LEVOTHYROXINE 50MCG TABLET (0.05MG) PO SCH (05:53)
[2020-04-14 06:00] VITALS: BP 110/62
[2020-04-14 06:07] LABS: HEMATOCRIT 26.1 % (36.0-47.0); HEMOGLOBIN 8.7 g/dl (12.0-15.5); MEAN CORPUSCULAR HEMOGLOBIN 27.5 pg (27.0-33.0); MEAN CORPUSCULAR HGB CONC 33.3 g/dl (32.0-36.5); MEAN CORPUSCULAR VOLUME 82.6 fl (80.0-96.0); PLATELET COUNT, AUTOMATED 337 10^3/uL (150-450); RED BLOOD COUNT 3.16 10^6/uL (4.00-5.40)
[2020-04-14 06:25] LABS: BLOOD UREA NITROGEN 4 MG/DL (7-18); CALCIUM LEVEL 7.5 MG/DL (8.8-10.2); CARBON DIOXIDE LEVEL 28 MEQ/L (21-32); CHLORIDE LEVEL 103 MEQ/L (98-107); CREATININE FOR GFR 0.32 MG/DL (0.55-1.30); GLOMERULAR FILTRATION RATE > 60.0 (>39); GLUCOSE, FASTING 75 MG/DL (70-100); MAGNESIUM LEVEL 1.2 MG/DL (1.8-2.4); POTASSIUM SERUM 3.5 MEQ/L (3.5-5.1); SODIUM LEVEL 139 MEQ/L (136-145)
[2020-04-14] MEDS ORDERED: POTASSIUM CHLORIDE 10 MEQ SR TABLET PO ONE (08:00)
[2020-04-14] MEDS ORDERED: MAG SULF 1GM/100ML (MAG RUN) 1 GM in IV 1 EA IV ONE (08:00)
[2020-04-14] MEDS: IRON POLYSAC (NIFEREX) 150 MG CAP PO SCH ×2 (09:06→20:37)
[2020-04-14] MEDS: OMEPRAZOLE 20 MG CAP PO SCH ×2 (09:06→20:39)
[2020-04-14] MEDS: MAGNESIUM CHLORIDE 64 MG TABCR (SLO MAG) PO SCH (09:06)
[2020-04-14] MEDS: metroNIDAZOLE (FLAGYL) 500 MG TAB PO SCH ×3 (09:06→20:37)
[2020-04-14] MEDS: SERTRALINE HCL 50 MG TAB PO SCH (09:06)
[2020-04-14] MEDS: METOPROLOL TART 50 MG TAB PO SCH ×2 (09:09→20:38)
--- NOTE | 2020-04-14 09:25 | CR ---
DATE OF CONSULTATION: 04/13/2020 I was asked to consult by Dr. Garnica for evaluation of intra-abdominal abscess from perforated viscus and choice of IV antibiotics. HISTORY OF PRESENT ILLNESS: Mrs. Zayas is a 80-year-old female whose history dates back to 03/16/2020 when she was admitted with a perforated viscus and an abdominal abscess. The patient had free air in the abdomen and a phlegmon in the right pelvis which was about 9.5 cm and a large hiatus hernia. The patient had a drainage procedure and culture had E. Coli, Bacteroides, Streptococcus, Klebsiella and anaerobes. The patient was treated with IV ciprofloxacin and Flagyl and then discharged. She was discharged on 03/22/2020. She came back on 03/23/2020 with persistent symptoms. On 03/30/2020, she had a positive urine culture with E. Coli. The patient was transferred to [facility] on the and readmitted on the with septic shock and hypotension. She was placed on pressors. Blood pressure was 80/40. White count was 11.4. She was afebrile. She was started on IV cefepime with vancomycin on 04/07/2020. On 04/10/2020, she was switched IV ceftriaxone. Another drainage procedure was done and a drain was placed on 04/08/2020. Culture was positive for E-coli, Streptococcus mitis and Bacteroides two different species, and blood cultures were positive for E. Coli. She was followed up by Dr. Hernández and he recommended to keep the drainage tube until the cavity has completely collapsed and she is to follow up in his office in 2 weeks for colonoscopy. She does not want any surgery. PAST MEDICAL HISTORY: Significant for right-sided hydronephrosis found to be related to the phlegmon, perforated viscus from diverticula with diverticular abscess status post drainage twice, hyponatremia, hypokalemia, chronic atrial fibrillation, hypothyroidism, history of CVA from patent foramen ovale, gastroesophageal reflux disease, disease, hyperlipidemia, and dementia. PAST SURGICAL HISTORY: Drainage of diverticular abscess twice, right total hip replacements, section, left rotator cuff surgery, transverse carpal tunnel release. FAMILY HISTORY: Nonrevealing. SOCIAL HISTORY: She was twice. She lives alone now with her cat in [place]. Her daughter is close by. She had two kids from her first marriage and one from her second marriage. ALLERGIES: No known drug allergies. MEDICATIONS: - ceftriaxone 1 gram IV q.12 hours - metoprolol 50 mg by mouth twice a day - Niferex-150 mg by mouth twice a day - Benadryl as needed - levothyroxine 15 mcg daily - Lipitor 40 mg by mouth at bedtime - Prilosec mg by mouth twice a day - IV potassium given today - Tylenol as needed REVIEW OF SYSTEMS: She denies any nausea, vomiting or diarrhea. She does have a decreased appetite. No dysuria, hematuria or flank pain. No upper or lower extremity weakness. She is a little confused. LABORATORY DATA: White count is 8.3, hemoglobin 8, hematocrit 24.2 and platelets 301. Sodium 138, potassium 3.1, chloride 103, bicarb 29, BUN 4, creatinine 0.24, glucose 78, calcium 7.4 Clostridium difficile was negative on 04/08/2020. COVID-19 was negative on 03/31/2020. IMAGING STUDIES: CT of abdomen and pelvis was done on 04/12/2020, I do not have a read on it. On 04/07/2020, CT showed a right abdominal abscess originally seen on 03/16/2020 with diameter measuring 9.5 cm. Continues to be mostly air, but some fluid. Also suspect continuous phlegmonous changes in the right pelvis due to prior perforated sigmoid diverticulitis with what appears to be multiloculated air fluid level in the right pelvis. There is free fluid in the pelvis and moderate right-sided hydronephrosis. PHYSICAL EXAMINATION: Pleasant, elderly female in no acute distress. Temperature is 98.1, pulse 104 irregular, respirations 20, blood pressure 107/70, O2 sat 97% on room air. Heart: Normal S1, S2. Tachycardiac, irregular. Systolic ejection murmur 2/6 left upper sternal border. Lungs are clear. No wheezes, rales or rhonchi. Abdomen is soft, nontender. No hepatosplenomegaly. Extremities: No clubbing or cyanosis. +1 pitting edema bilaterally. Mild left calf tenderness, but no redness. Right upper quadrant has a drain in place with purulent drainage, somewhat bloody. IMPRESSION: This is a 80-year-old female with a history of CVA, acute diverticulitis diagnosed on 03/16/2020 who was admitted multiple times with persistent symptoms and intra-abdominal abscess. She is currently on IV ceftriaxone, but has not received any anaerobic coverage for bacteroides. Due to the extensive abscess and multiple recurrent admissions, I would suggest continuing IV antibiotics at the senior living. She has multiple different pathogens and needs anaerobic coverage. PLAN; Place midline in interventional radiology tomorrow. Switch IV Rocephin to 2 grams q.24 hours. Start by mouth Flagyl 500 mg by mouth three times a day. Follow up with CBC, CMP, ESR, and CRP weekly. Obtain followup CT of abdomen and pelvis in 2 weeks to decide when the drain can be removed and followup with Dr. Hernández. The case discussed with Dr. Garnica who agrees with the plan to transfer back to senior living tomorrow.
[2020-04-14] MEDS ORDERED: LEVO500T3 PO (10:37)
[2020-04-14] MEDS ORDERED: FLAG500T PO (10:42)
[2020-04-14] MEDS ORDERED: LIDOCAINE 1% MDV 20ML VIAL As Ordered ONE (13:31)
[2020-04-14 14:00] VITALS: BP 117/66
--- NOTE | 2020-04-14 14:56 | IPNPDOC ---
Text Note Date of Service The patient was seen on 04/14/20. NOTE Subjective: No any acute event overnight. Patient denied any fever or chills, nausea, vomiting or dysuria. Objective: VITAL SIGNS: Please see below. GENERAL: awake, alert, NAD HEENT: NCAT, anicteric sclera, PERRLA NECK: supple, no JVD CARDIOVASCULAR EXAMINATION: Irregularly irregular RESPIRATORY EXAMINATION: CTA b/l, no wheezes/rales/rhonchi ABDOMINAL EXAMINATION: positive bowel sounds x 4, NT EXTREMITIES: no cyanosis, clubbing, edema SKIN: warm, no rashes. NEUROLOGICAL EXAMINATION: AAO x 3, no motor/sensory deficits PSYCHIATRIC EXAMINATION: calm, normal affect Assessment/Plan Patient's 80 years old female with past medical history of diverticulitis abscess perforation, dementia, hypothyroidism, atrial fibrillation, CVA presented to the hospital after she was [facility]ness in the [facility] in atrial fibrillation with rapid ventricular rate. On arrival patient was in rigors with rapid ventricular rate up to 190. Of note patient was recently discharged from the hospital after she was found to have perforated viscus secondary to perforated diverticular due to diverticulitis, status post IR drainage. Patient was discharged from the hospital with course of antibiotics In emergency room patient was found to have hypotension of 80/40, leukocytosis of 16.9, hemoglobin of 11.3, TSH 14.1, K 2.9, lactic acid 4.6. CT of abdomen showed significant right kidney hydronephrosis. Problems (1) Sepsis Resolved Patient developed severe sepsis with hypotension, leukocytosis and lactic acidosis on admission Most likely secondary to abdominal abscess On 04/08/20 blood pressure improved after IV fluid DC Cefepime IV, vancomycin IV DC Ceftriaxone IV started on 04/10/20, Flagyl started on 04/13/20 to cover Bacterioids blood culture positive for gram-negative Escherichia coli, abscess culture positive for Escherichia coli and Streptococcus mitis Repeat blood culture negative (2) Intra-abdominal abscess CT showed phlegmonous change in the right pelvis due to prior perforated sigmoid diverticulitis with what appears to be multiloculated air/fluid in the right pelvis Dr. Singh talked to patient about possible surgery, patient declined surgical intervention abscess by IR US abscess was drained on 04/08/20, continuous drainage placed abscess culture positive for Escherichia coli on 04/12/2020 CT scan was done, result pending CEA wnl, there is concern for colon cancer, given positive stool for occult blood. Patient could have perforation secondary malignancies. Colonoscopy in the outpatient settings (3) Hypokalemia replaced (4) Atrial fibrillation with RVR Most likely secondary to sepsis is Lopressor IV when necessary Anticoagulation on hold due to GI bleed I increased her dose of beta blockers, heart rate is under control Right kidney hydronephrosis Most likely secondary to abdominal abscess Await CT scan results Normocytic anemia Multifactorial, superimposed with GI blood loss Patient has low iron. We will start iron supplementation B12 and folate wnl Electrolyte imbalance Magnesium replaced VS,Fishbone, I+O VS, Fishbone, I+O Laboratory Tests 04/14/20 05:30 Vital Signs Date Time Temp Pulse Resp B/P (MAP) Pulse Ox O2 Delivery O2 Flow Rate FiO2 04/14/20 09:09 109 115/77 04/14/20 06:00 98.9 17 96 Room Air I&O- Last 24 Hours up to 6 AM 04/14/20 06:00 Intake Total 890 ml Balance 890 ml TODD JACQUES DO April 14, 2020 14:56
[2020-04-14 16:09] VITALS: BP 126/66
[2020-04-14] MEDS: SODIUM CHLORIDE 0.9% INJ 10 ML SYR IV SCH (17:20)
[2020-04-14] MEDS: ATORVASTATIN 20 MG TAB PO SCH (20:38)
[2020-04-14] MEDS: cefTRIAXone SOD 2 GM in D5W MINI-BAG PLUS 50 ML IV SCH (20:39)
[2020-04-14 22:00] VITALS: BP 112/71
[2020-04-15] MEDS: KCL 20MEQ in NS 1000ML 1,000 ML IV SCH ×2 (03:23→16:10)
[2020-04-15 06:00] VITALS: BP 120/73
[2020-04-15] MEDS: SODIUM CHLORIDE 0.9% INJ 10 ML SYR IV SCH ×2 (06:17→18:47)
[2020-04-15] MEDS: LEVOTHYROXINE 50MCG TABLET (0.05MG) PO SCH (06:17)
[2020-04-15 06:47] LABS: HEMATOCRIT 25.4 % (36.0-47.0); HEMOGLOBIN 8.4 g/dl (12.0-15.5); MEAN CORPUSCULAR HEMOGLOBIN 27.8 pg (27.0-33.0); MEAN CORPUSCULAR HGB CONC 33.1 g/dl (32.0-36.5); MEAN CORPUSCULAR VOLUME 84.1 fl (80.0-96.0); PLATELET COUNT, AUTOMATED 325 10^3/uL (150-450); RED BLOOD COUNT 3.02 10^6/uL (4.00-5.40); WHITE BLOOD COUNT 10.6 10^3/uL (4.0-10.0)
[2020-04-15 07:14] LABS: BLOOD UREA NITROGEN 5 MG/DL (7-18); CALCIUM LEVEL 7.5 MG/DL (8.8-10.2); CARBON DIOXIDE LEVEL 28 MEQ/L (21-32); CHLORIDE LEVEL 104 MEQ/L (98-107); CREATININE FOR GFR 0.33 MG/DL (0.55-1.30); GLOMERULAR FILTRATION RATE > 60.0 (>39); GLUCOSE, FASTING 75 MG/DL (70-100); MAGNESIUM LEVEL 1.5 MG/DL (1.8-2.4); POTASSIUM SERUM 3.9 MEQ/L (3.5-5.1); SODIUM LEVEL 136 MEQ/L (136-145)
[2020-04-15] MEDS ORDERED: MAG SULF 1GM/100ML (MAG RUN) 1 GM in IV 1 EA IV ONE (09:00)
[2020-04-15] MEDS: SERTRALINE HCL 50 MG TAB PO SCH (09:41)
[2020-04-15] MEDS: IRON POLYSAC (NIFEREX) 150 MG CAP PO SCH ×2 (09:41→20:27)
[2020-04-15] MEDS: metroNIDAZOLE (FLAGYL) 500 MG TAB PO SCH ×3 (09:41→20:28)
[2020-04-15] MEDS: OMEPRAZOLE 20 MG CAP PO SCH ×2 (09:41→20:28)
[2020-04-15] MEDS: METOPROLOL TART 50 MG TAB PO SCH ×2 (09:42→20:27)
--- NOTE | 2020-04-15 11:14 | REP ---
MIDLINE CATHETER INSERTION WITH SITE RODERICK The procedure was performed under the direct supervision of Dr. Ruiz. The risks and benefits of the procedure were explained to the patient and informed consent was obtained. The right brachial vein was localized using ultrasound guidance. The skin was prepped and draped in a sterile fashion. 1% lidocaine was used as a local anesthetic. Using ultrasound guidance the brachial vein was cannulated and a 0.018 guidewire was inserted. The needle was removed and a 5.5 Croatian dilator and peel-away sheath was inserted over the guide wire. A 5-Croatian dual lumen catheter was left at a length of 16.5 cm. The dilator was removed and the catheter was inserted over the guide wire. The peel-away sheath was removed and the catheter was flushed with heparinized saline as per Hospital protocol. The catheter was affixed to the skin and a sterile dressing was applied. The patient tolerated the procedure well and there were no immediate complications. Electronically Signed by ALYSON Zarate 04/14/2020 05:19 P Electronically Signed by Beau Ruiz MD 04/15/2020 11:05 A
[2020-04-15] MEDS: MAGNESIUM CHLORIDE 64 MG TABCR (SLO MAG) PO SCH (13:35)
[2020-04-15 14:00] VITALS: BP 109/79
[2020-04-15] MEDS: cefTRIAXone SOD 2 GM in D5W MINI-BAG PLUS 50 ML IV SCH (20:28)
[2020-04-15] MEDS: ATORVASTATIN 20 MG TAB PO SCH (20:28)
[2020-04-15 22:00] VITALS: BP 105/61
[2020-04-16] MEDS: ACETAMINOPHEN TAB 650MG DOSE (2X325MG) PO PRN (04:23)
[2020-04-16] MEDS: KCL 20MEQ in NS 1000ML 1,000 ML IV SCH (04:23)
[2020-04-16] MEDS: LEVOTHYROXINE 50MCG TABLET (0.05MG) PO SCH (05:33)
[2020-04-16] MEDS: SODIUM CHLORIDE 0.9% INJ 10 ML SYR IV SCH ×2 (05:33→17:23)
[2020-04-16 06:00] VITALS: BP 119/70
[2020-04-16 06:32] LABS: BLOOD UREA NITROGEN 5 MG/DL (7-18); CALCIUM LEVEL 7.4 MG/DL (8.8-10.2); CARBON DIOXIDE LEVEL 26 MEQ/L (21-32); CHLORIDE LEVEL 104 MEQ/L (98-107); CREATININE FOR GFR 0.29 MG/DL (0.55-1.30); GLOMERULAR FILTRATION RATE > 60.0 (>39); GLUCOSE, FASTING 77 MG/DL (70-100); MAGNESIUM LEVEL 1.5 MG/DL (1.8-2.4); POTASSIUM SERUM 3.6 MEQ/L (3.5-5.1); SODIUM LEVEL 134 MEQ/L (136-145)
[2020-04-16] MEDS: IRON POLYSAC (NIFEREX) 150 MG CAP PO SCH ×2 (08:55→20:32)
[2020-04-16] MEDS: OMEPRAZOLE 20 MG CAP PO SCH ×2 (08:55→20:32)
[2020-04-16] MEDS: SERTRALINE HCL 50 MG TAB PO SCH (08:55)
[2020-04-16] MEDS: metroNIDAZOLE (FLAGYL) 500 MG TAB PO SCH ×3 (08:55→20:33)
[2020-04-16] MEDS: MAGNESIUM CHLORIDE 64 MG TABCR (SLO MAG) PO SCH ×2 (08:55→20:32)
[2020-04-16] MEDS: METOPROLOL TART 50 MG TAB PO SCH ×2 (08:58→20:32)
[2020-04-16] MEDS: SODIUM CHLORIDE 0.9% INJ 10 ML SYR IV PRN ×3 (10:55→21:39)
[2020-04-16 11:07] LABS: C REACTIVE PROTEIN QUANTITATIV 1.63 MG/DL (0.00-0.30)
[2020-04-16] MEDS ORDERED: MAG SULF 1GM/100ML (MAG RUN) 1 GM in IV 1 EA IV ONE (11:15)
[2020-04-16] MEDS ORDERED: POTASSIUM CHLORIDE 10 MEQ SR TABLET PO ONE (16:00)
[2020-04-16] MEDS ORDERED: MAGNESIUM CHLORIDE 64 MG TABCR (SLO MAG) PO SCH (16:00)
[2020-04-16] MEDS: FUROSEMIDE 40 MG TAB PO SCH (16:17)
[2020-04-16] MEDS: cefTRIAXone SOD 2 GM in D5W MINI-BAG PLUS 50 ML IV SCH (20:31)
[2020-04-16] MEDS: APIXABAN 5 MG TAB (ELIQUIS) PO SCH (20:32)
[2020-04-16] MEDS: ATORVASTATIN 20 MG TAB PO SCH (20:32)
[2020-04-17] MEDS: SODIUM CHLORIDE 0.9% INJ 10 ML SYR IV SCH ×2 (05:47→15:44)
[2020-04-17] MEDS: LEVOTHYROXINE 50MCG TABLET (0.05MG) PO SCH (05:47)
[2020-04-17 06:00] VITALS: BP 133/83
[2020-04-17 06:39] LABS: HEMATOCRIT 25.8 % (36.0-47.0); HEMOGLOBIN 8.4 g/dl (12.0-15.5); MEAN CORPUSCULAR HEMOGLOBIN 27.4 pg (27.0-33.0); MEAN CORPUSCULAR HGB CONC 32.6 g/dl (32.0-36.5); PLATELET COUNT, AUTOMATED 306 10^3/uL (150-450); RED BLOOD COUNT 3.07 10^6/uL (4.00-5.40); WHITE BLOOD COUNT 10.8 10^3/uL (4.0-10.0)
[2020-04-17 07:09] LABS: BLOOD UREA NITROGEN 3 MG/DL (7-18); CALCIUM LEVEL 7.5 MG/DL (8.8-10.2); CARBON DIOXIDE LEVEL 27 MEQ/L (21-32); CHLORIDE LEVEL 104 MEQ/L (98-107); CREATININE FOR GFR 0.28 MG/DL (0.55-1.30); GLOMERULAR FILTRATION RATE > 60.0 (>39); GLUCOSE, FASTING 67 MG/DL (70-100); MAGNESIUM LEVEL 1.5 MG/DL (1.8-2.4); POTASSIUM SERUM 3.8 MEQ/L (3.5-5.1); SODIUM LEVEL 137 MEQ/L (136-145)
[2020-04-17] MEDS: POTASSIUM CHLORIDE 10 MEQ SR TABLET PO SCH (09:55)
[2020-04-17] MEDS: MAGNESIUM CHLORIDE 64 MG TABCR (SLO MAG) PO SCH ×2 (09:55→20:34)
[2020-04-17] MEDS: SERTRALINE HCL 50 MG TAB PO SCH (09:56)
[2020-04-17] MEDS: metroNIDAZOLE (FLAGYL) 500 MG TAB PO SCH ×3 (09:56→20:35)
[2020-04-17] MEDS: IRON POLYSAC (NIFEREX) 150 MG CAP PO SCH ×2 (09:56→20:35)
[2020-04-17] MEDS: OMEPRAZOLE 20 MG CAP PO SCH ×2 (09:56→20:35)
[2020-04-17] MEDS: METOPROLOL TART 50 MG TAB PO SCH ×2 (09:56→20:35)
[2020-04-17] MEDS: FUROSEMIDE 40 MG TAB PO SCH (09:56)
[2020-04-17] MEDS: APIXABAN 5 MG TAB (ELIQUIS) PO SCH ×2 (09:56→20:35)
--- NOTE | 2020-04-17 15:20 | IPN ---
DATE: 04/16/2020 Mrs. Zayas has no complaints today. She had no nausea, vomiting, or diarrhea. No abdominal pain. She is waiting for her COVID testing to be able to go back to the shelter with intravenous (IV) Rocephin and oral Flagyl. She still has a drain with some purulent discharge but denies any complaints. LABORATORY DATA: White count 10.6, hemoglobin 8.4, hematocrit 25.4, platelets 325. Sodium 134, potassium 3.6, chloride 104, bicarbonate 26, BUN 5, creatinine 0.29, glucose 77, calcium 7.4, magnesium 1.5. CRP 1.63, down from 8.54. Abdominal abscess culture had bacteroides, two strains, Escherichia (E) coli, and Streptococcus mitis, and blood cultures had E. coli in two sets. CT abdomen and pelvis was last done on April 12. The reading on it is not available still. IMPRESSION: 1. Intra-abdominal abscess, felt to be related to diverticulitis or possible other source. Status post drainage procedure. Since this has been a recurrent problem, I recommended IV antibiotics with Rocephin and oral Flagyl. Would suggest at least continuing for [address] abdomen and pelvis to make sure this was fully drained.. 2. Iron deficiency anemia Other possible source of infection could be a gastric malignancy, and therefore colonoscopy will be scheduled in a couple weeks with Dr. Hernández. PLAN: Monitor complete blood count (CBC) and C-reactive protein (CRP) weekly at the shelter. Keep the drainage in place until there is less than 10 mL and the cavity has resolved. Yesterday there was 20 mL of purulent drainage.
[2020-04-17] MEDS: ATORVASTATIN 20 MG TAB PO SCH (20:34)
[2020-04-17] MEDS: cefTRIAXone SOD 2 GM in D5W MINI-BAG PLUS 50 ML IV SCH (20:34)
[2020-04-17] MEDS: SODIUM CHLORIDE 0.9% INJ 10 ML SYR IV PRN (21:29)
[2020-04-18] MEDS: SODIUM CHLORIDE 0.9% INJ 10 ML SYR IV SCH ×2 (05:30→16:59)
[2020-04-18] MEDS: LEVOTHYROXINE 50MCG TABLET (0.05MG) PO SCH (05:30)
[2020-04-18 06:00] VITALS: BP 119/87
[2020-04-18 06:28] LABS: HEMATOCRIT 27.1 % (36.0-47.0); MEAN CORPUSCULAR HEMOGLOBIN 27.6 pg (27.0-33.0); MEAN CORPUSCULAR HGB CONC 33.2 g/dl (32.0-36.5); MEAN CORPUSCULAR VOLUME 83.1 fl (80.0-96.0); PLATELET COUNT, AUTOMATED 354 10^3/uL (150-450); RED BLOOD COUNT 3.26 10^6/uL (4.00-5.40); WHITE BLOOD COUNT 19.1 10^3/uL (4.0-10.0)
[2020-04-18 06:42] LABS: BLOOD UREA NITROGEN 4 MG/DL (7-18); CALCIUM LEVEL 7.6 MG/DL (8.8-10.2); CARBON DIOXIDE LEVEL 27 MEQ/L (21-32); CHLORIDE LEVEL 100 MEQ/L (98-107); CREATININE FOR GFR 0.29 MG/DL (0.55-1.30); GLOMERULAR FILTRATION RATE > 60.0 (>39); GLUCOSE, FASTING 64 MG/DL (70-100); MAGNESIUM LEVEL 1.3 MG/DL (1.8-2.4); POTASSIUM SERUM 3.7 MEQ/L (3.5-5.1); SODIUM LEVEL 135 MEQ/L (136-145)
[2020-04-18] MEDS ORDERED: MAG SULF 1GM/100ML (MAG RUN) 1 GM in IV 1 EA IV ONE (09:00)
[2020-04-18] MEDS: SERTRALINE HCL 50 MG TAB PO SCH (09:05)
[2020-04-18] MEDS: metroNIDAZOLE (FLAGYL) 500 MG TAB PO SCH ×3 (09:05→20:20)
[2020-04-18] MEDS: OMEPRAZOLE 20 MG CAP PO SCH ×2 (09:05→20:21)
[2020-04-18] MEDS: IRON POLYSAC (NIFEREX) 150 MG CAP PO SCH ×2 (09:05→20:20)
[2020-04-18] MEDS: APIXABAN 5 MG TAB (ELIQUIS) PO SCH ×2 (09:05→20:21)
[2020-04-18] MEDS: POTASSIUM CHLORIDE 10 MEQ SR TABLET PO SCH (09:05)
[2020-04-18] MEDS: FUROSEMIDE 40 MG TAB PO SCH (09:05)
[2020-04-18] MEDS: MAGNESIUM CHLORIDE 64 MG TABCR (SLO MAG) PO SCH ×2 (09:09→20:20)
[2020-04-18] MEDS: ACETAMINOPHEN TAB 650MG DOSE (2X325MG) PO PRN (09:36)
[2020-04-18] MEDS: METOPROLOL TART 50 MG TAB PO SCH ×2 (09:38→21:00)
[2020-04-18 13:35] LABS: BASO % 0.1 % (0.0-1.0); HEMATOCRIT 29.4 % (36.0-47.0); HEMOGLOBIN 9.9 g/dl (12.0-15.5); LYMPH # 1.2 10^3/uL (1.5-5.0); LYMPH % 7.6 % (24.0-44.0); MEAN CORPUSCULAR HGB CONC 33.7 g/dl (32.0-36.5); MEAN CORPUSCULAR VOLUME 83.1 fl (80.0-96.0); MONO # 1.1 10^3/uL (0.0-0.8); MONO % 6.7 % (0.0-5.0); NEUTROPHILS # 13.7 10^3/uL (1.5-8.5); NEUTROPHILS % 85.1 % (36.0-66.0); PLATELET COUNT, AUTOMATED 374 10^3/uL (150-450); RED BLOOD COUNT 3.54 10^6/uL (4.00-5.40); WHITE BLOOD COUNT 16.1 10^3/uL (4.0-10.0)
[2020-04-18] MEDS: ATORVASTATIN 20 MG TAB PO SCH (20:20)
[2020-04-18] MEDS: cefTRIAXone SOD 2 GM in D5W MINI-BAG PLUS 50 ML IV SCH (20:21)
[2020-04-18] MEDS: SODIUM CHLORIDE 0.9% INJ 10 ML SYR IV PRN (21:10)
[2020-04-19] MEDS: LEVOTHYROXINE 50MCG TABLET (0.05MG) PO SCH (05:38)
[2020-04-19] MEDS: SODIUM CHLORIDE 0.9% INJ 10 ML SYR IV SCH ×2 (05:38→16:15)
[2020-04-19 06:00] VITALS: BP 141/76
[2020-04-19 06:06] LABS: HEMATOCRIT 29.7 % (36.0-47.0); HEMOGLOBIN 9.9 g/dl (12.0-15.5); MEAN CORPUSCULAR HEMOGLOBIN 27.7 pg (27.0-33.0); MEAN CORPUSCULAR HGB CONC 33.3 g/dl (32.0-36.5); MEAN CORPUSCULAR VOLUME 83.2 fl (80.0-96.0); PLATELET COUNT, AUTOMATED 394 10^3/uL (150-450); RED BLOOD COUNT 3.57 10^6/uL (4.00-5.40)
[2020-04-19 06:29] LABS: BLOOD UREA NITROGEN 6 MG/DL (7-18); CALCIUM LEVEL 7.6 MG/DL (8.8-10.2); CARBON DIOXIDE LEVEL 27 MEQ/L (21-32); CHLORIDE LEVEL 100 MEQ/L (98-107); CREATININE FOR GFR 0.37 MG/DL (0.55-1.30); GLOMERULAR FILTRATION RATE > 60.0 (>39); GLUCOSE, FASTING 65 MG/DL (70-100); MAGNESIUM LEVEL 1.5 MG/DL (1.8-2.4); POTASSIUM SERUM 4.2 MEQ/L (3.5-5.1); SODIUM LEVEL 135 MEQ/L (136-145)
[2020-04-19] MEDS ORDERED: MAG SULF 1GM/100ML (MAG RUN) 1 GM in IV 1 EA IV ONE (07:45)
[2020-04-19] MEDS ORDERED: ISOVUE-370 76% 100ML VIAL As Ordered ONE (08:08)
[2020-04-19] MEDS: METOPROLOL TART 50 MG TAB PO SCH ×2 (09:00→21:00)
[2020-04-19] MEDS: MAGNESIUM CHLORIDE 64 MG TABCR (SLO MAG) PO SCH ×2 (10:28→21:30)
[2020-04-19] MEDS: metroNIDAZOLE (FLAGYL) 500 MG TAB PO SCH ×3 (10:29→21:30)
[2020-04-19] MEDS: IRON POLYSAC (NIFEREX) 150 MG CAP PO SCH ×2 (10:29→21:30)
[2020-04-19] MEDS: POTASSIUM CHLORIDE 10 MEQ SR TABLET PO SCH (10:29)
[2020-04-19] MEDS: APIXABAN 5 MG TAB (ELIQUIS) PO SCH ×2 (10:30→21:30)
[2020-04-19] MEDS: SERTRALINE HCL 50 MG TAB PO SCH (10:30)
[2020-04-19] MEDS: FUROSEMIDE 40 MG TAB PO SCH (10:30)
[2020-04-19 10:31] VITALS: BP 97/63
[2020-04-19] MEDS: OMEPRAZOLE 20 MG CAP PO SCH ×2 (10:31→21:30)
--- NOTE | 2020-04-19 12:32 | REP ---
REASON: Followup. COMPARISON: 04/12/2020. CONTRAST: 100 mL Isovue 370. There is a small right pleural effusion and subtle right basilar patchy opacities status quo. The pelvic drainage tube is unchanged in position. A small air fluid level is now seen in the region of the tip of the drainage tube representing a change from the prior exam. This measures approximately 4 x 2.4 x 3.2 cm. No free air has developed in the abdomen or pelvis. There is a trace amount of free pelvic fluid, status quo. There is a hiatal hernia status quo. The liver, gallbladder, spleen, pancreas and adrenal glands, and kidneys are unchanged. The abdominal aorta and paraaortic regions are unchanged. The osseous structure are unchanged. IMPRESSION: Small right hemipelvic air fluid level as described above. Possible abscess recurrence. This needs to be correlated clinically with appropriate followup. Other findings as described above. Electronically Signed by Geovany Navarrete DO 04/19/2020 12:36 P
--- NOTE | 2020-04-19 17:02 | DS.PDOC ---
Discharge Summary General Date of Admission April 07, 2020 at 13:50 Date of Discharge 04/19/20 Discharge Summary PROCEDURES PERFORMED DURING STAY: [None]. ADMITTING DIAGNOSES: Sepsis Intra-abdominal abscess Hypokalemia Atrial fibrillation with RVR Right kidney hydronephrosis Normocytic anemia Electrolyte imbalance DISCHARGE DIAGNOSES: Sepsis Intra-abdominal abscess Hypokalemia Atrial fibrillation with RVR Right kidney hydronephrosis Normocytic anemia Electrolyte imbalance COMPLICATIONS/CHIEF COMPLAINT: Sepsis. HISTORY OF PRESENT ILLNESS: Patient's 80 years old female with past medical history of diverticulitis abscess perforation, dementia, hypothyroidism, atrial fibrillation, CVA presented to the hospital after she was found unconsciousness in the halfway in atrial fibrillation with rapid ventricular rate. On arrival patient was in rigors with rapid ventricular rate up to 190. Of note pat ient was recently discharged from the hospital after she was found to have perforated viscus secondary to perforated diverticular due to diverticulitis, status post IR drainage. Patient was discharged from the hospital with course of antibiotics In emergency room patient was found to have hypotension of 80/40, leukocytosis of 16.9, hemoglobin of 11.3, TSH 14.1, K 2.9, lactic acid 4.6. CT of abdomen showed significant right kidney hydronephrosis. HOSPITAL COURSE: During hospital stay following issue addressed 1) Sepsis Resolved Patient developed severe sepsis with hypotension, leukocytosis and lactic acidosis on admission Most likely secondary to abdominal abscess On 04/08/20 blood pressure improved after IV fluid DC Cefepime IV, vancomycin IV DC Ceftriaxone IV started on 04/10/20, Flagyl started on 04/13/20 to cover Bacterioids blood culture positive for gram-negative Escherichia coli, abscess culture positive for Escherichia coli and Streptococcus mitis Repeat blood culture negative (2) Intra-abdominal abscess CT showed phlegmonous change in the right pelvis due to prior perforated sigmoid diverticulitis with what appears to be multiloculated air/fluid in the right pelvis Dr. Singh talked to patient about possible surgery, patient declined surgical intervention abscess by IR US abscess was drained on 04/08/20, continuous drainage placed abscess culture positive for Escherichia coli on 04/12/2020 CT scan was done, result pending CEA wnl, there is concern for colon cancer, given positive stool for occult blood. Patient could have perforation secondary malignancies. Colonoscopy in the outpatient settings Infectious diseases specialist Dr. Silva recommended IV antibiotics with Rocephin and oral Flagyl. Would suggest at least continuing for [address] abdomen and pelvis to make sure this was fully drained. (3) Hypokalemia replaced (4) Atrial fibrillation with RVR Most likely secondary to sepsis is Lopressor IV when necessary Anticoagulation on hold due to GI bleed I increased her dose of beta blockers, heart rate is under control Right kidney hydronephrosis Most likely secondary to abdominal abscess Await CT scan results Normocytic anemia Multifactorial, superimposed with GI blood loss Patient has low iron. We will start iron supplementation B12 and folate wnl Electrolyte imbalance Magnesium replaced DISCHARGE MEDICATIONS: Please see below. ALLERGIES: Please see below. PHYSICAL EXAMINATION ON DISCHARGE: VITAL SIGNS: Please see below. GENERAL: awake, alert, NAD HEENT: NCAT, anicteric sclera, PERRLA NECK: supple, no JVD CARDIOVASCULAR EXAMINATION: Irregularly irregular RESPIRATORY EXAMINATION: CTA b/l, no wheezes/rales/rhonchi ABDOMINAL EXAMINATION: positive bowel sounds x 4, NT EXTREMITIES: no cyanosis, clubbing, edema SKIN: warm, no rashes. NEUROLOGICAL EXAMINATION: AAO x 3, no motor/sensory deficits PSYCHIATRIC EXAMINATION: calm, normal affect LABORATORY DATA: Please see below. IMAGING: REASON: Followup. COMPARISON: 04/12/2020. CONTRAST: 100 mL Isovue 370. There is a small right pleural effusion and subtle right basilar patchy opacities status quo. The pelvic drainage tube is unchanged in position. A small air fluid level is now seen in the region of the tip of the drainage tube representing a change from the prior exam. This measures approximately 4 x 2.4 x 3.2 cm. No free air has developed in the abdomen or pelvis. There is a trace amount of free pelvic fluid, status quo. There is a hiatal hernia status quo. The liver, gallbladder, spleen, pancreas and adrenal glands, and kidneys are unchanged. The abdominal aorta and paraaortic regions are unchanged. The osseous structure are u nchanged. IMPRESSION: Small right hemipelvic air fluid level as described above. Possible abscess recurrence. This needs to be correlated clinically with appropriate followup. Other findings as described above. Electronically Signed by Geovany Navarrete DO 04/19/2020 12:36 P DD: Geovany Navarrete MD, DO 04/19/20 1115 DT: TIGIST 04/19/20 1231 DS: PHIDE 04/19/20 1236 PROGNOSIS: ACTIVITY: [As tolerated]. DIET: Cardiac DISCHARGE PLAN: Continue IV antibiotics for 2 weeks DISPOSITION: SNF ITEMS TO FOLLOWUP ON ON OUTPATIENT: Follow-up with Dr. Hernández, Dr. Silva and PCP DISCHARGE CONDITION: [Stable]. TIME SPENT ON DISCHARGE: Greater than 20 minutes. Vital Signs/I&Os Vital Signs Date Time Temp Pulse Resp B/P (MAP) Pulse Ox O2 Delivery O2 Flow Rate FiO2 04/19/20 10:31 92 97/63 (74) 04/19/20 06:00 97.9 18 95 Room Air I&O- Last 24 Hours up to 6 AM 04/19/20 06:00 Intake Total 820 ml Output Total 0 ml Balance 820 ml Laboratory Data Labs 24H Laboratory Tests 2 04/19/20 05:17: Nucleated Red Blood Cells % (auto) 0.0, Anion Gap 8, Glomerular Filtration Rate > 60.0, Calcium Level 7.6L, Magnesium Level 1.5L CBC/BMP Laboratory Tests 04/19/20 05:17 Microbiology Microbiology 04/18/20 Blood Culture - Preliminary, Resulted No growth after 24 hours . All specim... 04/15/20 Coronavirus COVID-19 PCR (DAJA) - Final, Complete Discharge Medications Scheduled Apixaban (Eliquis) 5 Mg Tablet, 5 MG PO BID, (Reported) Atenolol (Atenolol) 25 Mg Tablet, 25 MG PO DAILY, (Reported) Atorvastatin Calcium (Atorvastatin Calcium) 40 Mg Tab, 40 MG PO QHS, (Reported) Donepezil HCl (Donepezil HCl) 10 Mg Tablet, 10 MG PO QHS, (Reported) Furosemide (Lasix) 40 Mg Tablet, 40 MG PO DAILY, (Reported) Levothyroxine Sodium (Levothyroxine Sodium) 50 Mcg Tab, 50 MCG PO DAILY, (Reported) Metronidazole (Flagyl) 500 Mg Tablet, 500 MG PO TID Multivitamins (Thera M Plus Tablet) 1 Tab Tab, 1 TAB PO DAILY, (Reported) Omeprazole (Omeprazole) 20 Mg Cap, 20 MG PO BID, (Reported) Sertraline HCl (Sertraline HCl) 50 Mg Tablet, 50 MG PO DAILY, (Reported) Scheduled PRN Acetaminophen (Tylenol) 325 Mg Tablet, 650 MG PO QID PRN for PAIN, (Reported) Allergies Coded Allergies: No Known Allergies (Unverified , 03/23/20) TODD JACQUES DO Apr 19, 2020 17:02
[2020-04-19] MEDS: ATORVASTATIN 20 MG TAB PO SCH (21:30)
[2020-04-19] MEDS: cefTRIAXone SOD 2 GM in D5W MINI-BAG PLUS 50 ML IV SCH (21:31)
[2020-04-19] MEDS: SODIUM CHLORIDE 0.9% INJ 10 ML SYR IV PRN (22:47)
[2020-04-20] VITALS (9 sets, daily range): BP systolic 84–119; BP diastolic 52–68
[2020-04-20] MEDS ORDERED: NS 500 ML IV ONE ×3 (00:15→17:00)
[2020-04-20] MEDS: LEVOTHYROXINE 50MCG TABLET (0.05MG) PO SCH (05:50)
[2020-04-20] MEDS: SODIUM CHLORIDE 0.9% INJ 10 ML SYR IV SCH ×2 (05:51→18:33)
[2020-04-20 06:00] LABS: HEMATOCRIT 25.2 % (36.0-47.0); HEMOGLOBIN 8.4 g/dl (12.0-15.5); MEAN CORPUSCULAR HEMOGLOBIN 27.8 pg (27.0-33.0); MEAN CORPUSCULAR HGB CONC 33.3 g/dl (32.0-36.5); MEAN CORPUSCULAR VOLUME 83.4 fl (80.0-96.0); PLATELET COUNT, AUTOMATED 355 10^3/uL (150-450); RED BLOOD COUNT 3.02 10^6/uL (4.00-5.40); WHITE BLOOD COUNT 10.1 10^3/uL (4.0-10.0)
[2020-04-20 06:26] LABS: ALBUMIN 1.5 GM/DL (3.2-5.2); ALT/SGPT 12 U/L (12-78); BILIRUBIN,TOTAL 0.2 MG/DL (0.2-1.0); BLOOD UREA NITROGEN 7 MG/DL (7-18); C REACTIVE PROTEIN QUANTITATIV 1.96 MG/DL (0.00-0.30); CALCIUM LEVEL 7.3 MG/DL (8.8-10.2); CARBON DIOXIDE LEVEL 28 MEQ/L (21-32); CHLORIDE LEVEL 103 MEQ/L (98-107); CREATININE FOR GFR 0.33 MG/DL (0.55-1.30); GLOMERULAR FILTRATION RATE > 60.0 (>39); GLUCOSE, FASTING 103 MG/DL (70-100); MAGNESIUM LEVEL 1.5 MG/DL (1.8-2.4); SODIUM LEVEL 137 MEQ/L (136-145); TOTAL PROTEIN 4.8 GM/DL (6.4-8.2)
--- NOTE | 2020-04-20 08:24 | REP ---
REASON: Cough and fever. COMPARISON: 04/07/2020 The technique utilized in obtaining the radiograph has magnified the cardiac silhouette and accentuated the interstitial markings. There is cardiomegaly accentuated by technique. There is a hiatal hernia status quo. There is persistent elevation of the diaphragmatic surface of the right lung status quo. Right lower lobe opacities are suspected unchanged. There are no new abnormal opacities. There is no change in the osseous structures. IMPRESSION: Stable chronic changes as described above. Consider PA and lateral views of the chest. Electronically Signed by Geovany Navarrete DO 04/20/2020 09:45 A
[2020-04-20] MEDS: METOPROLOL TART 50 MG TAB PO SCH (09:00)
[2020-04-20] MEDS: FUROSEMIDE 40 MG TAB PO SCH (09:00)
[2020-04-20] MEDS: MAGNESIUM CHLORIDE 64 MG TABCR (SLO MAG) PO SCH ×2 (09:12→20:18)
[2020-04-20] MEDS: MAG SULF 1GM/100ML (MAG RUN) 1 GM in IV 1 EA IV SCH ×2 (09:12→09:58)
[2020-04-20] MEDS: metroNIDAZOLE (FLAGYL) 500 MG TAB PO SCH ×3 (09:13→20:15)
[2020-04-20] MEDS: IRON POLYSAC (NIFEREX) 150 MG CAP PO SCH ×2 (09:13→20:16)
[2020-04-20] MEDS: APIXABAN 5 MG TAB (ELIQUIS) PO SCH ×2 (09:13→20:15)
[2020-04-20] MEDS: OMEPRAZOLE 20 MG CAP PO SCH ×2 (09:13→20:15)
[2020-04-20] MEDS: SERTRALINE HCL 50 MG TAB PO SCH (09:13)
[2020-04-20] MEDS: POTASSIUM CHLORIDE 10 MEQ SR TABLET PO SCH (09:13)
--- NOTE | 2020-04-20 15:13 | IPNPDOC ---
Text Note Date of Service The patient was seen on 04/20/20. NOTE Subjective: Patient is a 80-year-old female with a PMHx of Diverticulitis s/p abscess / perforation, Dementia, Hypothyroidism, A. fib, CVA , who presented to the hospital after she was found unconscious at her care home. She was found to be in A. fib with RVR. Patient had a recent admission for which she was found to have a perforated diverticulum with abscess collection. She had an iron that a drain placed on 03/17 and cultures have grown Escherichia coli, Klebsiella pneumonia and Streptococcus, as well as anaerobic bacteria. Patient was seen and examined at the bedside. Patient appears comfortable. Denies any chest pain, shortness of breath or palpitations. Denies nausea, vomiting, abdominal pain, constipation, or urinary discomfort. Objective: Vitals (See below) General: Lying in bed, appears comfortable, AAOx3 HEENT: NC, AT CVS: +S1S2 Lungs: Fair air entry b/l, no evidence of wheezing / rhonchi / crackles Abdomen: Soft, ND, NT, +Drain present Extremities: LE with 1+ pitting edema, - Calf tenderness Assessment and plan: Sepsis - 2/2 intra-abdominal abscess - Currently, patient appears asymptomatic - Hemodynamically stable and afebrile - Leukocytosis has improved. No lactic acidosis - Blood cultures 04/08, no growth at 5 days; blood cultures 04/18, preliminary negative at 48 hours - Abscess culture 04/08: Escherichia coli and Streptococcus mitis - CT abdomen / pelvis 04/19: Small right hemipelvic air fluid level as described above. Possible abscess recurrence. This needs to be correlated clinically with appropriate followup. Other findings as described above. - c/w Ceftriaxone and Flagyl - Infectious disease and general surgery are on consultation; we appreciate their input LE edema - Will hold furosemide - Will start Albumin Diverticulitis s/p abscess / perforation - See above Normocytic anemia - Hg appears stable - No evidence of bleeding Hypomagnesemia - Will c/w Supplementation Dementia Hypothyroidism - c/w Levothyroxine A. fib - c/w rate control with metoprolol will adjust frequency and dose to ensure rate control - c/w full anticoagulation with Eliquis CVA - c/w Atorvastatin and Eliquis GERD - c/w Omeprazole DVT prophylaxis - c/w full anticoagulation with Eliquis VS,Fishbone, I+O VS, Fishbone, I+O Laboratory Tests 04/20/20 05:21 Vital Signs Date Time Temp Pulse Resp B/P (MAP) Pulse Ox O2 Delivery O2 Flow Rate FiO2 04/20/20 13:52 98.4 125 16 111/65 96 Room Air I&O- Last 24 Hours up to 6 AM 04/20/20 06:00 Intake Total 1750 ml Output Total 1100 ml Balance 650 ml ALFIE VIDALES MD Apr 20, 2020 15:13
[2020-04-20] MEDS: METOPROLOL TART 25 MG TABLET PO ONE ×2 (15:53→15:54)
[2020-04-20] MEDS: SODIUM CHLORIDE 0.9% INJ 10 ML SYR IV PRN (15:56)
[2020-04-20] MEDS ORDERED: DIGOXIN INJ 0.5 MG/2 ML AMP (J1160) IV STA (16:59)
[2020-04-20] MEDS ORDERED: DIGOXIN INJ 0.5 MG/2 ML AMP (J1160) IV SCH (18:00)
[2020-04-20] MEDS ORDERED: METOPROLOL TART 25 MG TABLET PO SCH (18:00)
[2020-04-20] MEDS: DIGOXIN INJ 0.5 MG/2 ML AMP (J1160) IV SCH (18:32)
[2020-04-20] MEDS: METOPROLOL TART 12.5 MG PER 1/2 TAB PO SCH (18:33)
[2020-04-20] MEDS: ATORVASTATIN 20 MG TAB PO SCH (20:15)
[2020-04-20] MEDS: cefTRIAXone SOD 2 GM in D5W MINI-BAG PLUS 50 ML IV SCH (20:16)
--- NOTE | 2020-04-20 23:08 | IPN ---
DATE: 04/20/2020 Mrs. Zayas has no complaints today except for decreased appetite, but she is tachycardic, in atrial fibrillation and hypotensive and therefore she is being transferred to the progressive care unit (PCU). She denies any chest pain, shortness of breath or palpitations. LABORATORY DATA: White count is 10.1 down from 18, hemoglobin 8.4, hematocrit 25.2, platelets 355. Her hemoglobin dropped from 9.9 to 8.4 today. Sodium 137, potassium 4, chloride 108, bicarbonate 28, BUN 7, creatinine 0.3, glucose 103, lactic acid 0.8, calcium 7.3, magnesium 1.5, AST 13, ALT 12 and CRP 1.96. Abscess culture: Escherichia (E) coli, Streptococcus mitis, bacteroides. Two pathogens. She is currently day #10 of IV ceftriaxone, day #7 of oral Flagyl. On physical exam, pulse 125, respirations 16, blood pressure 89/57, oxygen saturation (O2 sat) 96% on room air. Temperature is 98.4. Heart: Irregularly irregular, systolic ejection murmur 2/6 at the left upper sternal border. Lungs are clear. No wheezes, rales or rhonchi. Abdomen: Soft, nontender. No hepatosplenomegaly. Extremities: +2 pitting edema bilaterally. No calf tenderness. Right upper quadrant drain with purulent pus, 20 mL was emptied today. IMPRESSION: 1. Intra-abdominal abscess, polymicrobial sobia with E-coli Streptococcus mitis and bacteroides with E-coli bacteremia, on IV Rocephin and oral Flagyl. Inflammatory markers are trending down. 2. Atrial fibrillation with rapid ventricular response and hypotension. Could have been triggered by anemia, worsening anemia. Her hemoglobin is down to 8.4 without lactic acidosis. May benefit from blood transfusion. 3. Anorexia. Could be related to medication, especially metronidazole. Encourage Ensure as the patient has protein-calorie malnutrition and hypoalbuminemia. PLAN: Continue same antibiotics. Followup CT abdomen and pelvis done on 04/19/2020 shows small air fluid level now in the region of the tip of the drainage tube, represents a change from the prior exam. This measures 4 x 2.4 x 3.2 cm, concern for abscess recurrence. Chest x-ray, PA and lateral, stable chronic changes, cardiomegaly. Continue IV antibiotics. Reconsult surgery. I would suggest getting a colonoscopy to look at the underlying reason for her worsening anemia and worsening abscess as a gastrointestinal (GI) source. The patient agrees on colonoscopy. I just discussed the case with her once medically stable and atrial fibrillation under better control.
[2020-04-21] VITALS (17 sets, daily range): BP systolic 92–122; BP diastolic 50–82
[2020-04-21] MEDS: DIGOXIN INJ 0.5 MG/2 ML AMP (J1160) IV SCH (00:12)
[2020-04-21 04:44] LABS: HEMATOCRIT 26.9 % (36.0-47.0); HEMOGLOBIN 8.7 g/dl (12.0-15.5); MEAN CORPUSCULAR HEMOGLOBIN 27.2 pg (27.0-33.0); MEAN CORPUSCULAR HGB CONC 32.3 g/dl (32.0-36.5); MEAN CORPUSCULAR VOLUME 84.1 fl (80.0-96.0); PLATELET COUNT, AUTOMATED 371 10^3/uL (150-450); WHITE BLOOD COUNT 7.1 10^3/uL (4.0-10.0)
[2020-04-21 05:23] LABS: DIGOXIN LEVEL 1.4 NG/ML (0.5-2.0)
[2020-04-21] MEDS: ACETAMINOPHEN TAB 650MG DOSE (2X325MG) PO PRN (05:25)
[2020-04-21] MEDS: LEVOTHYROXINE 50MCG TABLET (0.05MG) PO SCH (05:26)
[2020-04-21] MEDS: SODIUM CHLORIDE 0.9% INJ 10 ML SYR IV SCH ×2 (05:26→18:00)
[2020-04-21] MEDS: METOPROLOL TART 12.5 MG PER 1/2 TAB PO SCH ×3 (05:26→12:31)
[2020-04-21] MEDS: IRON POLYSAC (NIFEREX) 150 MG CAP PO SCH ×2 (08:09→20:39)
[2020-04-21] MEDS: MAGNESIUM CHLORIDE 64 MG TABCR (SLO MAG) PO SCH ×2 (08:09→20:39)
[2020-04-21] MEDS: SERTRALINE HCL 50 MG TAB PO SCH (08:10)
[2020-04-21] MEDS: APIXABAN 5 MG TAB (ELIQUIS) PO SCH ×2 (08:10→20:39)
[2020-04-21] MEDS: POTASSIUM CHLORIDE 10 MEQ SR TABLET PO SCH (08:10)
[2020-04-21] MEDS: OMEPRAZOLE 20 MG CAP PO SCH ×2 (08:10→20:39)
[2020-04-21] MEDS: DIGOXIN 0.125 MG TAB PO SCH (08:10)
[2020-04-21] MEDS: metroNIDAZOLE (FLAGYL) 500 MG TAB PO SCH ×3 (08:10→20:39)
[2020-04-21 08:40] LABS: BLOOD UREA NITROGEN 4 MG/DL (7-18); C REACTIVE PROTEIN QUANTITATIV 1.16 MG/DL (0.00-0.30); CALCIUM LEVEL 7.6 MG/DL (8.8-10.2); CARBON DIOXIDE LEVEL 29 MEQ/L (21-32); CHLORIDE LEVEL 103 MEQ/L (98-107); CREATININE FOR GFR 0.28 MG/DL (0.55-1.30); GLOMERULAR FILTRATION RATE > 60.0 (>39); GLUCOSE, FASTING 79 MG/DL (70-100); MAGNESIUM LEVEL 1.7 MG/DL (1.8-2.4); POTASSIUM SERUM 3.9 MEQ/L (3.5-5.1); SODIUM LEVEL 136 MEQ/L (136-145)
[2020-04-21] MEDS ORDERED: MAG SULF 1GM/100ML (MAG RUN) 1 GM in IV 1 EA IV ONE (09:00)
[2020-04-21] MEDS ORDERED: METOPROLOL TART 12.5 MG PER 1/2 TAB PO ONE (09:15)
--- NOTE | 2020-04-21 12:56 | IPNPDOC ---
Text Note Date of Service The patient was seen on 04/21/20. NOTE Subjective: Patient is a 80-year-old female with a PMHx of Diverticulitis s/p abscess / perforation, Dementia, Hypothyroidism, A. fib, CVA , who presented to the hospital after she was [facility] at [facility]. She was found to be in A. fib with RVR. Patient had a recent admission for which she was found to have a perforated diverticulum with abscess collection. She had an iron that a drain placed on 03/17 and cultures have grown Escherichia coli, Klebsiella pneumonia and Streptococcus, as well as anaerobic bacteria. Patient was seen and examined at the bedside. Currently, patient reports that he feels fine. He denies any chest pain, shortness breath or palpitations. He denies nausea, vomiting, abdominal discomfort, diarrhea, or urinary discomfort. Objective: Vitals (See below) General: Lying in bed, appears comfortable, Awake / Alert HEENT: NC, AT CVS: +S1S2 Lungs: Air entry fair bilaterally without auscultated rhonchi, crackles or wheezing Abdomen: Soft, nondistended and nontender, +Drain present Extremities: LE with 1+ pitting edema, - Calf tenderness Assessment and plan: Sepsis - 2/2 intra-abdominal abscess - Currently, patient appears asymptomatic - Hemodynamically stable and afebrile - Leukocytosis has improved. No lactic acidosis - Blood cultures 04/08, no growth at 5 days; blood cultures 04/18, preliminary negative at 48 hours - Abscess culture 04/08: Escherichia coli and Streptococcus mitis - CT abdomen / pelvis 04/19: Small right hemipelvic air fluid level as described above. Possible abscess recurrence. This needs to be correlated clinically with appropriate followup. Other findings as described above. - c/w Ceftriaxone and Flagyl - Infectious disease and general surgery are on consultation; we appreciate their input Possible diastolic CHF - LE with evidence of edema, no reported SOB - ECHO 03/18: mild concentric LV hypertrophy, EF 65%, Some degree of LV diastolic function - unable to evaluate with Afib, elevated CVP, moderate AV sclerosis, mild MR, - Will provide transfusion now - Will resume furosemide today A. fib with RVR - Was digoxin loaded yesterday 04/20 - Digoxin level appropriate currently - c/w adjusted rate / rhythm control with metoprolol / digoxin - c/w full anticoagulation with Eliquis Normocytic anemia - Hg has trended down - No evidence of bleeding - Will transfuse 2 units of PRBC - Discussed with surgery; plan for colonoscopy - likely Sunday; will hold Eliquis on Sunday in anticipation of colonoscopy Diverticulitis s/p abscess / perforation - See above Hypomagnesemia - Will c/w Supplementation Dementia Hypothyroidism - c/w Levothyroxine CVA - c/w Atorvastatin and Eliquis GERD - c/w Omeprazole DVT prophylaxis - c/w full anticoagulation with Eliquis Disposition: - Possible colonoscopy on Sunday - Transfuse 2 units PRBC today - Hold eliquis starting on Sunday VS,Fishbone, I+O VS, Fishbone, I+O Laboratory Tests 04/21/20 04:28 Vital Signs Date Time Temp Pulse Resp B/P (MAP) Pulse Ox O2 Delivery O2 Flow Rate FiO2 04/21/20 12:31 85 110/78 04/21/20 12:00 97.0 18 95 Room Air I&O- Last 24 Hours up to 6 AM 04/21/20 06:00 Intake Total 1310.0 ml Output Total 1650 ml Balance -340.0 ml ALFIE VIDALES MD Apr 21, 2020 12:56
[2020-04-21] MEDS: ATORVASTATIN 20 MG TAB PO SCH (20:39)
[2020-04-21] MEDS: cefTRIAXone SOD 2 GM in D5W MINI-BAG PLUS 50 ML IV SCH (20:40)
[2020-04-21] MEDS: METOPROLOL SUCC *XL* 25MG TAB (TopROL *XL*) PO SCH (20:40)
[2020-04-22] VITALS: BP 115/67
[2020-04-22 04:00] VITALS: BP 127/83
[2020-04-22] MEDS: LEVOTHYROXINE 50MCG TABLET (0.05MG) PO SCH (05:43)
[2020-04-22] MEDS: SODIUM CHLORIDE 0.9% INJ 10 ML SYR IV SCH (05:44)
[2020-04-22 06:12] LABS: HEMATOCRIT 40.4 % (36.0-47.0); MEAN CORPUSCULAR HEMOGLOBIN 28.9 pg (27.0-33.0); MEAN CORPUSCULAR HGB CONC 34.4 g/dl (32.0-36.5); PLATELET COUNT, AUTOMATED 339 10^3/uL (150-450); RED BLOOD COUNT 4.81 10^6/uL (4.00-5.40); WHITE BLOOD COUNT 10.5 10^3/uL (4.0-10.0)
[2020-04-22 06:21] LABS: HEMOGLOBIN 13.9 g/dl (12.0-15.5)
[2020-04-22 06:47] LABS: DIGOXIN LEVEL 0.9 NG/ML (0.5-2.0)
[2020-04-22 07:47] LABS: ALBUMIN 2.3 GM/DL (3.2-5.2); ALT/SGPT 17 U/L (12-78); BILIRUBIN,TOTAL 0.7 MG/DL (0.2-1.0); BLOOD UREA NITROGEN 4 MG/DL (7-18); C REACTIVE PROTEIN QUANTITATIV 2.13 MG/DL (0.00-0.30); CARBON DIOXIDE LEVEL 26 MEQ/L (21-32); CHLORIDE LEVEL 102 MEQ/L (98-107); GLOMERULAR FILTRATION RATE > 60.0 (>39); GLUCOSE, FASTING 69 MG/DL (70-100); MAGNESIUM LEVEL 1.7 MG/DL (1.8-2.4); POTASSIUM SERUM 4.2 MEQ/L (3.5-5.1); SODIUM LEVEL 135 MEQ/L (136-145); TOTAL PROTEIN 6.3 GM/DL (6.4-8.2)
[2020-04-22 08:00] VITALS: BP 122/88
[2020-04-22] MEDS ORDERED: FUROSEMIDE 40 MG TAB PO SCH (09:00)
[2020-04-22] MEDS: MAGNESIUM CHLORIDE 64 MG TABCR (SLO MAG) PO SCH (09:10)
[2020-04-22 09:11] VITALS: BP 122/88
[2020-04-22] MEDS: METOPROLOL SUCC *XL* 25MG TAB (TopROL *XL*) PO SCH (09:11)
[2020-04-22] MEDS: IRON POLYSAC (NIFEREX) 150 MG CAP PO SCH (09:12)
[2020-04-22] MEDS: OMEPRAZOLE 20 MG CAP PO SCH (09:12)
[2020-04-22] MEDS: metroNIDAZOLE (FLAGYL) 500 MG TAB PO SCH (09:12)
[2020-04-22] MEDS: POTASSIUM CHLORIDE 10 MEQ SR TABLET PO SCH (09:12)
[2020-04-22] MEDS: APIXABAN 5 MG TAB (ELIQUIS) PO SCH (09:12)
[2020-04-22] MEDS: DIGOXIN 0.125 MG TAB PO SCH (09:12)
[2020-04-22] MEDS: SERTRALINE HCL 50 MG TAB PO SCH (09:12)
[2020-04-22] MEDS ORDERED: CEFD1CAP8 PO (09:41)
[2020-04-22] MEDS ORDERED: FERR325T3 PO (09:41)
[2020-04-22] MEDS ORDERED: MAGN64TASA PO (09:41)
[2020-04-22] MEDS ORDERED: DIGO0.123 PO (09:41)
[2020-04-22] MEDS ORDERED: METO1TAB32 PO (09:41)
[2020-04-22] MEDS: ACETAMINOPHEN TAB 650MG DOSE (2X325MG) PO PRN (10:30)
--- NOTE | 2020-04-22 11:01 | DS.PDOC ---
Discharge Summary General Date of Admission April 07, 2020 at 13:50 Date of Discharge 04/22/2020 Discharge Summary PROCEDURES PERFORMED DURING STAY: [None]. ADMITTING DIAGNOSES / DISCHARGE DIAGNOSES: Sepsis - 2/2 intra-abdominal abscess Possible diastolic CHF A. fib with RVR Normocytic anemia Right breast enlargement Diverticulitis s/p abscess / perforation Hypomagnesemia Dementia Hypothyroidism CVA GERD DVT prophylaxis COMPLICATIONS/CHIEF COMPLAINT: Weakness / Hypotension HISTORY OF PRESENT ILLNESS: Patient is a 80-year-old female with a PMHx of Diverticulitis s/p abscess / perforation, Dementia, Hypothyroidism, A. fib, CVA , who presented to the hospital after she was found unconscious at her [facility]. She was found to be in A. fib with RVR. Patient had a recent admission for which she was found to have a perforated diverticulum with abscess collection. She had an iron that a drain placed on 03/17 and cultures have grown Escherichia coli, Klebsiella pneumonia and Streptococcus, as well as anaerobic bacteria. HOSPITAL COURSE: Sepsis - 2/2 intra-abdominal abscess - Currently, patient appears asymptomatic - Remains hemodynamically stable and afebrile - Blood cultures 04/08, no growth at 5 days; blood cultures 04/18, preliminary negative at 48 hours - Abscess culture 04/08: Escherichia coli and Streptococcus mitis - CT abdomen / pelvis 04/19: Small right hemipelvic air fluid level as described above. Possible abscess recurrence. This needs to be correlated clinically with appropriate followup. Other findings as described above. - Will DC Ceftriaxone and Flagyl; will adjust antibiotics to Cefdinir and Flagyl by mouth - Infectious disease and general surgery are on consultation; we appreciate their input - We'll have outpatient follow-up with infectious disease and general surgery within 7 days Possible diastolic CHF - Patient is saturating well on room air. Auscultation of lungs is clear. Lower extremity do reveal edema - ECHO 03/18: mild concentric LV hypertrophy, EF 65%, Some degree of LV diastolic function - unable to evaluate with Afib, elevated CVP, moderate AV sclerosis, mild MR, - c/w Furosemide A. fib with RVR - Ray remains optimized - Was digoxin loaded 04/20 - Digoxin level this morning remains appropriate - c/w adjusted rate / rhythm control with metoprolol / digoxin - c/w full anticoagulation with Eliquis Normocytic anemia - Hg has responded appropriately - No evidence of bleeding - s/p 2 units of PRBC - Discussed with surgery; initial plans were for colonoscopy on 04/26; however, patient has refused to pursue colonoscopy - Risks and benefits were discussed with patient at this point she does not want to proceed - Will have outpatient follow-up with surgery, Dr. Hernández Right breast enlargement - Patient has reported that her right breast is greater than her left and this has been an ongoing problem for several years - Examination of the right breast does not reveal any evidence of infection; overlying skin does appear to have changes - Advised patient of the findings may be consistent with malignancy and that a mammogram would be highly appropriate at this time - Patient has indicated that she does not want to proceed with mammogram or any imaging studies at this time - Patient was advised of the risks and benefits; she has verbalized understanding Diverticulitis s/p abscess / perforation - See above Hypomagnesemia - c/w Supplementation orally Dementia Hypothyroidism - c/w Levothyroxine CVA - c/w Atorvastatin and Eliquis GERD - c/w Omeprazole DVT prophylaxis - c/w full anticoagulation with Eliquis DISCHARGE MEDICATIONS: Please see below. ALLERGIES: Please see below. PHYSICAL EXAMINATION ON DISCHARGE: Vitals (See below) General: Lying in bed, appears comfortable, Awake / Alert / Oriented x3 HEENT: NC, AT CVS: +S1S2 Lungs: Fair air entry bilaterally without any auscultated crackles, wheezing or rhonchi Abdomen: Abdomen remains soft without any palpated tenderness, remains nondistended, +Drain present Extremities: Lower extremities do reveal 1+ pitting edema, - Calf tenderness LABORATORY DATA: Please see below. ACTIVITY: [As tolerated]. DISCHARGE PLAN: Follow-up with primary care provider, Dr. Silva, Dr. Hernández and Cardiology within 7 days Remain compliant with treatment plan and medications Return to the ER if you experience any problems DISPOSITION: [facility] rehabilitation DISCHARGE CONDITION: [Stable]. TIME SPENT ON DISCHARGE: 35 minutes Vital Signs/I&Os Vital Signs Date Time Temp Pulse Resp B/P (MAP) Pulse Ox O2 Delivery O2 Flow Rate FiO2 04/22/20 09:12 91 04/22/20 09:11 122/88 04/22/20 08:00 97.1 17 99 Room Air I&O- Last 24 Hours up to 6 AM 04/22/20 06:00 Intake Total 2050.0 ml Output Total 2936 ml Balance -886.0 ml Laboratory Data Labs 24H Laboratory Tests 2 04/22/20 05:49: Nucleated Red Blood Cells % (auto) 0.0, Anion Gap 7L, Glomerular Filtration Rate > 60.0, Calcium Level 8.0L, Magnesium Level 1.7L, Total Bilirubin 0.7#, Aspartate Amino Transf (AST/SGOT) 29, Alanine Aminotransferase (ALT/SGPT) 17, Alkaline Phosphatase 83, C-Reactive Protein, Quantitative 2.13H, Total Protein 6.3#L, Albumin 2.3#L, Albumin/Globulin Ratio 0.6L, Digoxin Level 0.9 CBC/BMP Laboratory Tests 04/22/20 05:49 Microbiology Microbiology 04/20/20 Blood Culture - Preliminary, Resulted No growth after 24 hours . All specim... 04/20/20 Blood Culture - Preliminary, Resulted No growth after 24 hours . All specim... 04/18/20 Blood Culture - Preliminary, Resulted No Growth after 72 hours. All specime... 04/15/20 Coronavirus COVID-19 PCR (DAJA) - Final, Complete Discharge Medications Scheduled Apixaban (Eliquis) 5 Mg Tablet, 5 MG PO BID, (Reported) Atenolol (Atenolol) 25 Mg Tablet, 25 MG PO DAILY, (Reported) Atorvastatin Calcium (Atorvastatin Calcium) 40 Mg Tab, 40 MG PO QHS, (Reported) Cefdinir (Cefdinir) 300 Mg Capsule, 1 CAP PO BID Digoxin (Digoxin) 125 Mcg Tablet, 0.125 MG PO DAILY Donepezil HCl (Donepezil HCl) 10 Mg Tablet, 10 MG PO QHS, (Reported) Ferrous Sulfate (Ferrous Sulfate) 325 Mg Tablet.dr, 1 TAB PO BID Furosemide (Lasix) 40 Mg Tablet, 40 MG PO DAILY, (Reported) Levothyroxine Sodium (Levothyroxine Sodium) 50 Mcg Tab, 50 MCG PO DAILY, (Reported) Magnesium Chloride (Mag64) 64 Mg Tablet.dr, 64 MG PO BID Metoprolol Succinate (Metoprolol Succinate) 25 Mg Tab.er.24h, 25 MG PO BID Metronidazole (Flagyl) 500 Mg Tablet, 500 MG PO TID Multivitamins (Thera M Plus Tablet) 1 Tab Tab, 1 TAB PO DAILY, (Reported) Omeprazole (Omeprazole) 20 Mg Cap, 20 MG PO BID, (Reported) Sertraline HCl (Sertraline HCl) 50 Mg Tablet, 50 MG PO DAILY, (Reported) Scheduled PRN Acetaminophen (Tylenol) 325 Mg Tablet, 650 MG PO QID PRN for PAIN, (Reported) Allergies Coded Allergies: No Known Allergies (Unverified , 03/23/20) ALFIE VIDALES MD Apr 22, 2020 11:01
== END 2020-04-22 12:36 | DRG 872 ==
LOC: M ED 11:36 → EDBD 11:36 → M ED INP 13:50 → ENRESERV 14:16 → M ICU 15:09 → M MSPAV 04-09 11:16 → M PCU 04-20 16:46
PROVIDERS: ADMIT Internal Medicine; ATTEND Internal Medicine
PROC: 0W9G30Z Drainage of Peritoneal Cavity with Drainage Device, Percutaneous Approach (ICD-10-PCS; principal; 2020-04-08 11:30)
PROC: 05H933Z Insertion of Infusion Device into Right Brachial Vein, Percutaneous Approach (ICD-10-PCS; 2020-04-14)
DX: A41.51 Sepsis due to Escherichia coli [E. coli] (principal); N13.30 Unspecified hydronephrosis; E87.1 Hypo-osmolality and hyponatremia; I48.20 Chronic atrial fibrillation, unspecified; K57.20 Diverticulitis of large intestine with perforation and abscess without bleeding; E87.2 Acidosis; R55 Syncope and collapse; E87.6 Hypokalemia; D50.0 Iron deficiency anemia secondary to blood loss (chronic); R65.20 Severe sepsis without septic shock; F03.90 Unspecified dementia, unspecified severity, without behavioral disturbance, psychotic disturbance, mood disturbance, and anxiety; E83.42 Hypomagnesemia; B96.1 Klebsiella pneumoniae [K. pneumoniae] as the cause of diseases classified elsewhere; E78.5 Hyperlipidemia, unspecified; K21.9 Gastro-esophageal reflux disease without esophagitis; E03.9 Hypothyroidism, unspecified; Z86.73 Personal history of transient ischemic attack (TIA), and cerebral infarction without residual deficits; Z96.641 Presence of right artificial hip joint; Z79.01 Long term (current) use of anticoagulants; Z79.899 Other long term (current) drug therapy; Z11.59 Encounter for screening for other viral diseases; R63.0 Anorexia

== ENCOUNTER → 2020-04-08 | Outpatient (REF) ==
[~2020-04-08] MED LIST changes: +CEFD1CAP8 PO; +DIGO0.123 PO; +FERR325T3 PO; +LEVO500T3 PO; +MAGN64TASA PO; +METO1TAB32 PO
== END ==
LOC: SKLAB3 07:00
PROVIDERS: ATTEND Family Medicine
DX: D64.9 Anemia, unspecified (principal)

== ENCOUNTER → 2020-04-27 | Outpatient (REF) ==
[2020-04-27 09:41] LABS: BASO % 0.2 % (0.0-1.0); EOS % 0.3 % (0.0-3.0); HEMATOCRIT 37.5 % (36.0-47.0); HEMOGLOBIN 12.5 g/dl (12.0-15.5); LYMPH # 1.3 10^3/uL (1.5-5.0); LYMPH % 11.8 % (24.0-44.0); MEAN CORPUSCULAR HEMOGLOBIN 28.9 pg (27.0-33.0); MEAN CORPUSCULAR HGB CONC 33.3 g/dl (32.0-36.5); MEAN CORPUSCULAR VOLUME 86.6 fl (80.0-96.0); MONO # 0.7 10^3/uL (0.0-0.8); MONO % 6.5 % (0.0-5.0); NEUTROPHILS # 8.5 10^3/uL (1.5-8.5); NEUTROPHILS % 80.7 % (36.0-66.0); PLATELET COUNT, AUTOMATED 361 10^3/uL (150-450); RED BLOOD COUNT 4.33 10^6/uL (4.00-5.40); WHITE BLOOD COUNT 10.6 10^3/uL (4.0-10.0)
[2020-04-27 10:14] LABS: BLOOD UREA NITROGEN 8 MG/DL (7-18); CALCIUM LEVEL 8.3 MG/DL (8.8-10.2); CARBON DIOXIDE LEVEL 27 MEQ/L (21-32); CHLORIDE LEVEL 100 MEQ/L (98-107); CREATININE FOR GFR 0.46 MG/DL (0.55-1.30); GLOMERULAR FILTRATION RATE > 60.0 (>39); GLUCOSE, FASTING 117 MG/DL (70-100); SODIUM LEVEL 135 MEQ/L (136-145)
== END ==
LOC: SKLAB3 13:33
PROVIDERS: ATTEND Family Medicine
DX: D72.829 Elevated white blood cell count, unspecified (principal)

== ENCOUNTER → 2020-04-28 | Outpatient (REF) | payer MEDICARE | LOC: SKLAB3 13:09 | PROVIDERS: ATTEND Family Medicine | DX: R19.7 Diarrhea, unspecified (principal) ==

== ENCOUNTER → 2020-04-29 | Outpatient (REF) ==
[2020-04-29 08:29] LABS: BLOOD UREA NITROGEN 10 MG/DL (7-18); CALCIUM LEVEL 7.8 MG/DL (8.8-10.2); CARBON DIOXIDE LEVEL 28 MEQ/L (21-32); CHLORIDE LEVEL 101 MEQ/L (98-107); CREATININE FOR GFR 0.35 MG/DL (0.55-1.30); GLOMERULAR FILTRATION RATE > 60.0 (>39); GLUCOSE, FASTING 79 MG/DL (70-100); POTASSIUM SERUM 3.2 MEQ/L (3.5-5.1); SODIUM LEVEL 136 MEQ/L (136-145)
--- NOTE | 2020-05-01 12:22 | IPN ---
DATE: 04/30/2020 Chrissy was seen in the retirement on 04/30/2020. She has no new complaints. According to nursing, she has been having loose stools. She had a gastrointestinal (GI) panel that was negative. She still has her drain in the right upper quadrant, which has greenish-brownish purulent discharge. There was about 20 mL in the past [address] abdomen and pelvis: 4 x 3 cm where the catheter tip is placed that has an air-fluid level. The patient was treated inpatient from April 07 to April 22 for 14 days with intravenous (IV) Rocephin and oral Flagyl. On April 23 the patient was switched to cefdinir and oral Flagyl. She is currently day #21, off antibiotics from drainage procedure. Abdominal abscess culture had Streptococcus mitis, Escherichia (E) coli, and two species of bacteroides. Labs done on April 29: Sodium 136, potassium 3.2, chloride 101, bicarbonate 28 , BUN 10, creatinine 0.35, glucose 79. White count 10.6, hemoglobin 12.5, hematocrit 37.5, platelets 361. CRP 2.13. PHYSICAL EXAMINATION: Blood pressure was 122/64, oxygen saturation 96% on room air, pulse 92, respirations 18, temperature is 96.9. HEART: Normal S1, S2. No murmurs appreciated. LUNGS: Clear. Diminished at the bases. ABDOMEN: Soft, nontender. Right upper quadrant drain with 5 mL of greenish-brownish purulent-looking material in the bag. EXTREMITIES: With +2 pitting edema on the right side, +1 pitting edema on the left side. Nontender. No erythema. IMPRESSION: 1. Intra-abdominal abscess, polymicrobial, on oral cefdinir and Flagyl, day #22 from drainage procedure. The patient will continue 6 weeks of total antibiotics. 2. History of diverticulitis, source of infection. The patient needs colonoscopy but has refused. 3. Diarrhea. GI panel was negative for Clostridium (C) difficile. The patient was started on probiotics. PLAN: Continue cefdinir and Flagyl until May 20, which would be a total of 6 weeks from last drainage procedure and add CRP and ESR to weekly labs. Please obtain followup CT abdomen and pelvis end of April to document clearance of abscess. The patient will followup also with Dr. Hernández on May 04.
== END ==
LOC: SKLAB3 07:00
PROVIDERS: ATTEND Family Medicine
DX: E87.6 Hypokalemia (principal)

== ENCOUNTER → 2020-05-04 | Outpatient (REF) ==
[2020-05-04 08:56] LABS: HEMOGLOBIN 12.3 g/dl (12.0-15.5); MEAN CORPUSCULAR HEMOGLOBIN 28.9 pg (27.0-33.0); MEAN CORPUSCULAR HGB CONC 33.2 g/dl (32.0-36.5); MEAN CORPUSCULAR VOLUME 86.9 fl (80.0-96.0); PLATELET COUNT, AUTOMATED 318 10^3/uL (150-450); RED BLOOD COUNT 4.26 10^6/uL (4.00-5.40); WHITE BLOOD COUNT 6.3 10^3/uL (4.0-10.0)
[2020-05-04 09:22] LABS: EOSINOPHILS 2 % (0-3); LYMPHOCYTES 47 % (16-44); MONOCYTES 4 % (0-5); NEUTROPHILS 45 % (28-66)
[2020-05-04 09:23] LABS: PLATELET ESTIMATE NORMAL (NORMAL)
[2020-05-04 09:28] LABS: ERYTHROCYTE SEDIMENTATION RATE 34 mm/hr (0-30)
[2020-05-04 09:29] LABS: BLOOD UREA NITROGEN 8 MG/DL (7-18); C REACTIVE PROTEIN QUANTITATIV 1.27 MG/DL (0.00-0.30); CARBON DIOXIDE LEVEL 28 MEQ/L (21-32); CHLORIDE LEVEL 99 MEQ/L (98-107); CREATININE FOR GFR 0.38 MG/DL (0.55-1.30); GLOMERULAR FILTRATION RATE > 60.0 (>39); GLUCOSE, FASTING 78 MG/DL (70-100); POTASSIUM SERUM 3.7 MEQ/L (3.5-5.1); SODIUM LEVEL 136 MEQ/L (136-145)
== END ==
LOC: SKLAB3 07:56
PROVIDERS: ATTEND Family Medicine
DX: E87.6 Hypokalemia (principal); L02.211 Cutaneous abscess of abdominal wall

== ENCOUNTER → 2020-05-10 | Outpatient (REF) ==
[2020-05-10 10:24] LABS: HEMATOCRIT 34.7 % (36.0-47.0); HEMOGLOBIN 11.6 g/dl (12.0-15.5); MEAN CORPUSCULAR HEMOGLOBIN 28.6 pg (27.0-33.0); MEAN CORPUSCULAR HGB CONC 33.4 g/dl (32.0-36.5); MEAN CORPUSCULAR VOLUME 85.7 fl (80.0-96.0); PLATELET COUNT, AUTOMATED 322 10^3/uL (150-450); RED BLOOD COUNT 4.05 10^6/uL (4.00-5.40)
[2020-05-10 10:43] LABS: BLOOD UREA NITROGEN 10 MG/DL (7-18); CALCIUM LEVEL 8.1 MG/DL (8.8-10.2); CARBON DIOXIDE LEVEL 30 MEQ/L (21-32); CHLORIDE LEVEL 103 MEQ/L (98-107); CREATININE FOR GFR 0.33 MG/DL (0.55-1.30); GLOMERULAR FILTRATION RATE > 60.0 (>39); GLUCOSE, FASTING 70 MG/DL (70-100); SODIUM LEVEL 138 MEQ/L (136-145)
[2020-05-10 10:52] LABS: ATYPICAL LYMPH 1 % (0-5); LYMPHOCYTES 15 % (16-44); MONOCYTES 2 % (0-5); NEUTROPHILS 78 % (28-66); PLATELET ESTIMATE NORMAL (NORMAL)
[2020-05-10 10:54] LABS: ANISOCYTOSIS 1+
[2020-05-10 14:57] LABS: CLOSTRIDIUM DIFFICILE PCR NEGATIVE (NEGATIVE)
== END ==
LOC: SKLAB3 09:28
PROVIDERS: ATTEND Family Medicine
DX: R53.83 Other fatigue (principal)

== ENCOUNTER → 2020-05-11 | Outpatient (REF) ==
[~2020-05-11] MED LIST changes: +APAP325T4 PO; +ARIC1TAB2; -ASPI81TA85 PO; +ASPI81TA86 PO; +ATEN50TA2 PO; +ATIV1TAB10 PO; +DULC10SU2 PR; +FERR1TAB8 PO; +FEVE650S3 PR; +FLEEENE12 PR; +GLUC4GMTAB PO; +HYOS125TA PO; +KEPP1TAB PO; +KEPP250T5 PO; -LISI-542 PO; +LISI-898 PO; +MACR100C43 PO; +MILKSUS7 PO; +MIRT-62 PO; +MORP20SO3 PO; +POTA10TA16 PO; +REME15TA2 PO
[2020-05-11 07:31] LABS: HEMATOCRIT 35.9 % (36.0-47.0); HEMOGLOBIN 12.1 g/dl (12.0-15.5); MEAN CORPUSCULAR HEMOGLOBIN 29.1 pg (27.0-33.0); MEAN CORPUSCULAR HGB CONC 33.7 g/dl (32.0-36.5); MEAN CORPUSCULAR VOLUME 86.3 fl (80.0-96.0); PLATELET COUNT, AUTOMATED 316 10^3/uL (150-450); RED BLOOD COUNT 4.16 10^6/uL (4.00-5.40); WHITE BLOOD COUNT 12.4 10^3/uL (4.0-10.0)
[2020-05-11 08:11] LABS: BLOOD UREA NITROGEN 8 MG/DL (7-18); CARBON DIOXIDE LEVEL 25 MEQ/L (21-32); CHLORIDE LEVEL 106 MEQ/L (98-107); CREATININE FOR GFR 0.27 MG/DL (0.55-1.30); GLOMERULAR FILTRATION RATE > 60.0 (>39); GLUCOSE, FASTING 72 MG/DL (70-100); POTASSIUM SERUM 3.5 MEQ/L (3.5-5.1); SODIUM LEVEL 137 MEQ/L (136-145)
== END ==
LOC: SKLAB3 07:00
PROVIDERS: ATTEND Family Medicine
DX: D64.9 Anemia, unspecified (principal)

== ENCOUNTER → 2020-05-13 | Outpatient (REF) ==
[2020-05-12 14:14] LABS: HEMOGLOBIN 13.1 g/dl (12.0-15.5); MEAN CORPUSCULAR HEMOGLOBIN 29.1 pg (27.0-33.0); MEAN CORPUSCULAR HGB CONC 33.6 g/dl (32.0-36.5); MEAN CORPUSCULAR VOLUME 86.7 fl (80.0-96.0); PLATELET COUNT, AUTOMATED 345 10^3/uL (150-450); WHITE BLOOD COUNT 11.2 10^3/uL (4.0-10.0)
[2020-05-12 15:17] LABS: LYMPHOCYTES 15 % (16-44); MONOCYTES 9 % (0-5); NEUTROPHILS 70 % (28-66)
[2020-05-12 15:18] LABS: ANISOCYTOSIS 2+; PLATELET ESTIMATE NORMAL (NORMAL)
[2020-05-13 09:17] LABS: BLOOD UREA NITROGEN 16 MG/DL (7-18); CALCIUM LEVEL 8.3 MG/DL (8.8-10.2); CARBON DIOXIDE LEVEL 25 MEQ/L (21-32); CHLORIDE LEVEL 105 MEQ/L (98-107); CREATININE FOR GFR 0.45 MG/DL (0.55-1.30); GLOMERULAR FILTRATION RATE > 60.0 (>39); GLUCOSE, FASTING 79 MG/DL (70-100); POTASSIUM SERUM 3.2 MEQ/L (3.5-5.1); SODIUM LEVEL 137 MEQ/L (136-145)
== END ==
LOC: SKLAB3 07:00
PROVIDERS: ATTEND Family Medicine
DX: E86.0 Dehydration (principal)

== ENCOUNTER 2020-05-17 03:57 | Emergency (ER) | payer MEDICARE ==
[~2020-05-17] VITALS: Ht 162.6 cm; Wt 51.2 kg
[~2020-05-17 03:57] MED LIST changes: -APAP325T4 PO; -ARIC1TAB2; +ASPI81TA85 PO; -ASPI81TA86 PO; -ATEN50TA2 PO; -ATIV1TAB10 PO; -DULC10SU2 PR; -FERR1TAB8 PO; -FEVE650S3 PR; -FLEEENE12 PR; -GLUC4GMTAB PO; -HYOS125TA PO; -KEPP1TAB PO; -KEPP250T5 PO; +LISI-542 PO; -LISI-898 PO; -MACR100C43 PO; -MILKSUS7 PO; -MIRT-62 PO; -MORP20SO3 PO; -POTA10TA16 PO; -REME15TA2 PO
[2020-05-17] MEDS ORDERED: NS 1,000 ML IV ONE (04:15)
[2020-05-17 04:49] LABS: BASO # 0.1 10^3/uL (0.0-0.2); BASO % 0.8 % (0.0-1.0); EOS % 0.4 % (0.0-3.0); HEMATOCRIT 36.4 % (36.0-47.0); LYMPH % 24.7 % (24.0-44.0); MEAN CORPUSCULAR HEMOGLOBIN 28.8 pg (27.0-33.0); MEAN CORPUSCULAR VOLUME 87.5 fl (80.0-96.0); MONO # 0.8 10^3/uL (0.0-0.8); MONO % 9.8 % (0.0-5.0); NEUTROPHILS # 4.8 10^3/uL (1.5-8.5); NEUTROPHILS % 60.6 % (36.0-66.0); PLATELET COUNT, AUTOMATED 309 10^3/uL (150-450); RED BLOOD COUNT 4.16 10^6/uL (4.00-5.40); WHITE BLOOD COUNT 7.9 10^3/uL (4.0-10.0)
[2020-05-17] MEDS ORDERED: ISOVUE-370 76% 100ML VIAL As Ordered ONE (05:03)
[2020-05-17] MEDS ORDERED: POTA10TA16 PO (05:09)
[2020-05-17] MEDS ORDERED: REME15TA2 PO (05:09)
[2020-05-17] MEDS ORDERED: ARIC1TAB2 (05:09)
[2020-05-17 05:20] LABS: ACETAMINOPHEN LEVEL 2.6 UG/ML (10.0-30.0); ALBUMIN 2.2 GM/DL (3.2-5.2); ALT/SGPT 11 U/L (12-78); BILIRUBIN,DIRECT 0.2 MG/DL (0.0-0.2); BILIRUBIN,TOTAL 0.4 MG/DL (0.2-1.0); BLOOD UREA NITROGEN 15 MG/DL (7-18); CARBON DIOXIDE LEVEL 23 MEQ/L (21-32); CHLORIDE LEVEL 107 MEQ/L (98-107); CK-MB VALUE MASS 1.1 NG/ML (<3.6); CPK CREATINE PHOSPHOKINASE 31 U/L (26-192); CREATININE FOR GFR 0.42 MG/DL (0.55-1.30); ETHYL ALCOHOL (ETHANOL) < 0.003 % (0.000-0.010); GLOMERULAR FILTRATION RATE > 60.0 (>39); GLUCOSE, FASTING 79 MG/DL (70-100); MB/CK RELATIVE INDEX 3.55 (< OR =4); POTASSIUM SERUM 4.3 MEQ/L (3.5-5.1); SALICYLATE LEVEL < 1.7 MG/DL (5.0-30.0); SODIUM LEVEL 138 MEQ/L (136-145); TOTAL PROTEIN 5.8 GM/DL (6.4-8.2); TROPONIN I 0.03 NG/ML (< 0.10)
--- NOTE | 2020-05-17 05:50 | REPVR ---
PROCEDURE INFORMATION: Exam: CT Abdomen And Pelvis With Contrast Exam date and time: 05/17/2020 5:19 AM Age: 80 years old Clinical indication: Abdominal pain; Additional info: Altered mental status TECHNIQUE: Imaging protocol: Computed tomography of the abdomen and pelvis with intravenous contrast. Radiation optimization: All CT scans at this facility use at least one of these dose optimization techniques: automated exposure control; mA and/or kV adjustment per patient size (includes targeted exams where dose is matched to clinical indication); or iterative reconstruction. Contrast material: ISO 370; Contrast volume: 100 ml; Contrast route: INTRAVENOUS (IV); COMPARISON: CT ABD PELVIS WITH CONTRAST 04/19/2020 11:10 AM FINDINGS: Tubes, catheters and devices: There is a pigtail catheter in the right lower abdominal quadrant which appears to be coiled within a small bowel loop. Lungs: There is mild right basilar atelectatic changes. Mediastinal space: There is moderate sliding hiatal hernia. Liver: Normal. No mass. Gallbladder and bile ducts: The gallbladder is distended. There is thickening of the gallbladder at the dome measuring up to 9 mm in thickness. Pancreas: Normal. No ductal dilation. Spleen: Normal. No splenomegaly. Adrenals: There is 1.4 x 1.0 cm right adrenal gland nodule on axial image 32. Kidneys and ureters: There is 1.3 x 1.2 cm right renal cyst. There is right extrarenal pelvis. Stomach and bowel: There is thickening of the duodenal bulb. There is an ill-defined air and fluid collection with thick surrounding wall seen in the right hemipelvis to the right of the rectosigmoid colon extending superiorly. The collection measures approximately 9.2 x 4.5 x 3.9 centimetres There is a small amount of free pelvic fluid. Appendix: No evidence of appendicitis. Intraperitoneal space: See "Stomach and bowel" finding. Vasculature: Unremarkable. No abdominal aortic aneurysm. Lymph nodes: Unremarkable. No enlarged lymph nodes. Bladder: There is moderate amount of air in the urinary bladder. Reproductive: The uterus is heterogeneous containing a 4.7 x 3.6 cm calcified mass. Bones/joints: There is severe lumbar spine scoliosis with marked multilevel lower thoracic and lumbar spine DJD. The patient is status post total right hip replacement. Small calcifications seen adjacent to the acetabulum lateral to the acetabular component of the prosthesis likely dystrophic calcifications. Soft tissues: See "Bones/joints" finding. IMPRESSION: 1. 9.2 x 4.5 x 3.9 cm collection with air and fluid in the right hemipelvis extending superiorly to the right lower abdominal quadrant coupled with small amount of free pelvic fluid seen in March 2020. 2. Mildly thickened rectosigmoid colon with diverticular disease could be secondary to colitis or diverticulitis. Other underlying etiologies cannot be excluded. Correlate with clinical history and colonoscopy. 3. Moderate amount of air in the urinary bladder. This could be secondary to recent instrumentation however other etiologies such as infection with air producing organism or fistulous communication to the bowel cannot be completely excluded. Correlate with clinical history and symptoms. Follow-up is suggested. 4. 4.7 x 3.6 cm calcified uterine mass likely fibroid. 5. Right lower abdominal quadrant pigtail catheter appear to be within a small bowel loop. It is not clear if this is meant to be a drainage catheter or jejunostomy or ileostomy. 6. 1.3 x 1.2 cm simple right renal cyst for which follow-up is not necessary. 7. 1.4 x 1.0 cm right adrenal gland indeterminate nodule, unchanged since the prior exam. This can be further characterized with dedicated MRI or CT of the adrenal glands. 8. Apparent thickening of the duodenal bulb. Correlate clinically for duodenitis. 9. Distended gallbladder with significantly thickened wall at the dome. This could be secondary to chronic cholecystitis however underlying gallbladder wall pathology cannot be excluded. Correlate with gallbladder ultrasound. 10. Moderate sliding hiatal hernia. Electronically signed by: Williams Perez On 05/17/2020 05:50:29 AM
--- NOTE | 2020-05-17 05:52 | REPVR ---
PROCEDURE INFORMATION: Exam: CT Head Without Contrast Exam date and time: 05/17/2020 5:19 AM Age: 80 years old Clinical indication: Pain; Headache; Additional info: Altered mental status TECHNIQUE: Imaging protocol: Computed tomography of the head without contrast. Radiation optimization: All CT scans at this facility use at least one of these dose optimization techniques: automated exposure control; mA and/or kV adjustment per patient size (includes targeted exams where dose is matched to clinical indication); or iterative reconstruction. COMPARISON: CT Head without contrast 03/16/2020 11:30 AM FINDINGS: Brain: There is an old right cerebellar infarct with encephalomalacia. Ventricles: There is age-related cerebral atrophy with secondary ventricular dilatation. Bones/joints: Unremarkable. No acute fracture. Sinuses: Visualized sinuses are unremarkable. No fluid levels. Mastoid air cells: Visualized mastoid air cells are well aerated. Soft tissues: Unremarkable. IMPRESSION: 1. No CT evidence of acute intracranial hemorrhage, mass effect or midline shift. 2. Age-related cerebral atrophy with Old right cerebellar infarct Electronically signed by: Williams Perez On 05/17/2020 05:52:16 AM
[2020-05-17 06:00] LABS: FREE T4 1.19 NG/DL (0.76-1.46)
[2020-05-17 06:25] LABS: OSMOLALITY SERUM 274 MOSM/KG (280-301)
[2020-05-17 07:04] LABS: AMPHETAMINES LEVEL URINE NEGATIVE (NEGATIVE); BARBITURATES URINE NEGATIVE (NEGATIVE); BENZODIAZEPINES URINE NEGATIVE (NEGATIVE); CANNABINOIDS URINE NEGATIVE (NEGATIVE); COCAINE METABOLITE URINE NEGATIVE (NEGATIVE); METHADONE URINE NEGATIVE (NEGATIVE); OPIATES URINE NEGATIVE (NEGATIVE); PHENCYCLIDINE URINE NEGATIVE (NEGATIVE)
[2020-05-17] MEDS ORDERED: NITROFURANTOIN (MACROBID) 100 MG CAP PO ONE (07:30)
[2020-05-17] MEDS ORDERED: levETIRAcetam INJection 500 MG in D5W MINI-BAG PLUS 100 ML IV ONE (07:30)
[2020-05-17] MEDS ORDERED: MACR100C43 PO ×2 (07:41→08:06)
[2020-05-17] MEDS ORDERED: KEPP250T5 PO ×2 (07:41→08:06)
[2020-05-17] MEDS ORDERED: KEPP1TAB PO ×2 (07:41→08:06)
--- NOTE | 2020-05-17 08:14 | REP ---
Clinical: Altered mental status . Comparison: 04/20/2020 . Findings: Evaluation is limited by positioning and portable technique. Stable cardiomegaly and elevation to the right hemidiaphragm is again noted. Right lower lobe opacity and effusion cannot definitively be excluded. Remainder of the lung loja are well-aerated and clear. Impression: Relatively chronic-appearing changes. As above. Electronically Signed by Steve Osborne MD 05/17/2020 08:05 A
[2020-05-17 08:15] VITALS: BP 102/61
--- NOTE | 2020-05-17 09:06 | ECGEPIP ---
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
== END 2020-05-17 08:43 | disposition home or self-care (01) ==
LOC: M ED 03:57 → EDBD 03:57 → M ED 08:43
DX: R56.9 Unspecified convulsions (principal); N39.0 Urinary tract infection, site not specified; I11.0 Hypertensive heart disease with heart failure; I48.91 Unspecified atrial fibrillation; I50.9 Heart failure, unspecified; F03.90 Unspecified dementia, unspecified severity, without behavioral disturbance, psychotic disturbance, mood disturbance, and anxiety; Z86.73 Personal history of transient ischemic attack (TIA), and cerebral infarction without residual deficits; Z79.899 Other long term (current) drug therapy; Z79.01 Long term (current) use of anticoagulants
CPT/HCPCS: 70450; 71045; 74177; 80047; 80048; 80076; 80307; 82140; 82550; 82553; 82803; 83605; 83930; 84439; 84443; 84484; 85025; 87040; 87086; 93005; 93041; 96361; 96374; 99285; G0480; J1953; Q9967

== ENCOUNTER 2020-05-27 13:37 | Inpatient (IN) | payer MEDICARE ==
[~2020-05-27] VITALS: Ht 162.6 cm; Wt 54.7 kg
[~2020-05-27 13:37] MED LIST changes: +ARIC1TAB2; +KEPP1TAB PO; +KEPP250T5 PO; +MACR100C43 PO; +POTA10TA16 PO; +REME15TA2 PO
[2020-05-27] MEDS ORDERED: APAP325T4 PO (14:01)
[2020-05-27] MEDS ORDERED: FEVE650S3 PR (14:01)
[2020-05-27] MEDS ORDERED: ATEN50TA2 PO (14:01)
[2020-05-27] MEDS ORDERED: DULC10SU2 PR (14:01)
[2020-05-27] MEDS ORDERED: REME15TA PO (14:01)
[2020-05-27] MEDS ORDERED: MAGN64TASA PO (14:01)
[2020-05-27] MEDS ORDERED: GLUC4GMTAB PO (14:01)
[2020-05-27] MEDS ORDERED: FERR1TAB8 PO (14:01)
[2020-05-27] MEDS ORDERED: FLEEENE12 PR (14:01)
[2020-05-27] MEDS ORDERED: MILKSUS7 PO (14:01)
[2020-05-27] MEDS ORDERED: NS 1,560 ML in IV 1 EA IV ONE (14:15)
[2020-05-27] MEDS ORDERED: PIPERACILLIN/TAZOBACTAM SOD 3.375 GM in D5W MINI-BAG PLUS 50 ML IV ONE (14:45)
[2020-05-27 16:07] LABS: VENOUS BASE EXCESS -9.8 (-2.0-2.0); VENOUS O2 SATURATION 90.2 % (60.0-80.0); VENOUS PARTIAL PRESSURE O2 64.9 mmHg (30.0-50.0); VENOUS PH 7.318 UNITS (7.330-7.430); VENOUS STANDARD HCO3 16.5 MEQ/L
[2020-05-27] MEDS ORDERED: ISOVUE-370 76% 100ML VIAL As Ordered ONE (16:11)
[2020-05-27 16:14] LABS: HEMATOCRIT 33.1 % (36.0-47.0); MEAN CORPUSCULAR HEMOGLOBIN 30.1 pg (27.0-33.0); MEAN CORPUSCULAR HGB CONC 33.2 g/dl (32.0-36.5); MEAN CORPUSCULAR VOLUME 90.7 fl (80.0-96.0); PLATELET COUNT, AUTOMATED 338 10^3/uL (150-450); RED BLOOD COUNT 3.65 10^6/uL (4.00-5.40); WHITE BLOOD COUNT 13.6 10^3/uL (4.0-10.0)
[2020-05-27 16:31] LABS: INR 2.65; PARTIAL THROMBOPLASTIN TIME 39.5 SECONDS (25.0-38.4); PROTHROMBIN TIME 28.1 SECONDS (11.8-14.0)
[2020-05-27 16:45] LABS: ALBUMIN 1.8 GM/DL (3.2-5.2); ALT/SGPT 17 U/L (12-78); AMYLASE 28 U/L (25-115); BILIRUBIN,DIRECT 0.4 MG/DL (0.0-0.2); BILIRUBIN,TOTAL 0.8 MG/DL (0.2-1.0); BLOOD UREA NITROGEN 23 MG/DL (7-18); C REACTIVE PROTEIN QUANTITATIV 9.64 MG/DL (0.00-0.30); CARBON DIOXIDE LEVEL 16 MEQ/L (21-32); CHLORIDE LEVEL 107 MEQ/L (98-107); CK-MB VALUE MASS 1.2 NG/ML (<3.6); CPK CREATINE PHOSPHOKINASE 23 U/L (26-192); CREATININE FOR GFR 0.79 MG/DL (0.55-1.30); GLOMERULAR FILTRATION RATE > 60.0 (>39); GLUCOSE, FASTING 61 MG/DL (70-100); MB/CK RELATIVE INDEX 5.22 (< OR =4); POTASSIUM SERUM 4.5 MEQ/L (3.5-5.1); SODIUM LEVEL 136 MEQ/L (136-145); TOTAL PROTEIN 5.4 GM/DL (6.4-8.2); TROPONIN I < 0.02 NG/ML (< 0.10)
[2020-05-27 17:07] LABS: LYMPHOCYTES 3 % (16-44); METAMYELOCYTES 1 % (0-0); MONOCYTES 7 % (0-5); NEUTROPHILS 83 % (28-66); PLATELET ESTIMATE NORMAL (NORMAL)
[2020-05-27 17:08] LABS: BURR CELLS 1+; POIKILOCYTOSIS 1+
[2020-05-27] MEDS ORDERED: NS 1,000 ML IV ONE (17:15)
[2020-05-27 17:37] LABS: IMMUNOGLOBULIN G 1360 MG/DL (681-1648); IMMUNOGLOBULIN M 48.3 MG/DL (40-230)
[2020-05-27] MEDS ORDERED: GLUCAGON INJ 1MG VIAL SC PRN (18:00)
[2020-05-27] MEDS ORDERED: GLUCOSE 4GM CHEW TABLET PO PRN (18:00)
[2020-05-27] MEDS ORDERED: DEXTROSE 50% 50 ML SYRINGE IV PRN (18:00)
[2020-05-27] MEDS ORDERED: ACETAMINOPHEN TAB 650MG DOSE (2X325MG) PO PRN (18:30)
--- NOTE | 2020-05-27 18:46 | HPEPDOC ---
[facility] Medical History & Physical Date of Admission May 27, 2020 Date of Service: May 27, 2020 History and Physical CHIEF COMPLAINT: Abdominal pain HISTORY OF PRESENT ILLNESS: Ms. Zayas presents to [facility] ER from [facility] largely because staff at the [facility] noticed her abscess drain placed on her previous admission (Apr 07 2020) was draining dark, foul smelling fluid. EMS brought in the patient and received a poor history from [facility]. Additionally she complains of LLQ abdominal pain of a few weeks duration. She states this pain is sharp and sometimes radiates into the mid-abdomen. She rates this pain at a 5/10 constantly and and denies having a clear inciting event. She denies that eating or defecating make the pain worse. She also reports occasionally seeing bloody streaks on her toilet paper in the recent weeks as well. She also reports some pink colored urine of unknown duration. She denies any recent fatigue, fevers, sweats/chills, weight loss, chest pain, SOB, recent illness, diarrhea or change in stool caliber. Finally it should be noted that the patient has possible cognitive/memory impairment, making it difficult to assess the validity of her history. Much of the remaining history was obtained by chart review. PAST MEDICAL HISTORY: 1. Right hydronephrosis. 2. Perforated viscus secondary to perforated diverticula, diverticular abscess, 3. status post IR drainage. 4. Hyponatremia. 5. Hypokalemia. 6. Chronic atrial fibrillation. 7. Hypothyroidism. 8. History of CVA secondary to patent foramen ovale (PFO). 9. Reflux. 10. Hyperlipidemia. 11. Dementia. 12. PFO. PAST SURGICAL HISTORY: 1. Transverse carpal tunnel release 2. Left rotator cuff repair 3. Right total hip arthroplasty 4. Revision of right hip 5. 6. Drainage for diverticular abscess SOCIAL HISTORY: Marital status: Resides in: [facility], formerly in [place] Tobacco use: Denies ETOH: Denies Illicit drug use: Denies IV drug use: Denies Other relevant social factors: Lives at [facility] FAMILY HISTORY: Unable to recall ALLERGIES: Please see below. REVIEW OF SYSTEMS: CONSTITUTIONAL: Denies recent fevers, chills, night sweats, weight loss HEENT: Denies Headache, vision or hearing changes, recent URI CARDIOVASCULAR: Does complain of exertional anginal pain. Denies palpitations RESPIRATORY: Denies any SOB, cough, sputum production, PND GASTROINTESTINAL: Positive for LLQ abdominal pain and mild hematochezia. Denies diarrhea, constipation, change in stool caliber GENITOURINARY: Positive for hematuria. Negative for dysuria, fecaluria NEUROLOGICAL: No vision or hearing changes. HOME MEDICATIONS: Please see below. PHYSICAL EXAMINATION: VITAL SIGNS: Temperature 97.5, pulse 88, respiratory rate 16, blood pressure 127/93, pulse oximetry 98% on room air. GENERAL APPEARANCE: Thin/frail woman laying her bed not moving in mild apparent distress HEENT: Normal sclera and conjunctiva. EOMI. Moist mucous membranes CARDIOVASCULAR: Irregularly irregular heartbeat. Normal rate with no obvious murmurs, rubs or gallops appreciated LUNGS: CTA B/L with no murmurs, rales, rhonchi ABDOMEN: + for retching in the ER. Drain in place with mild seepage around the drain. Drain does appear to contain stool colored material with a foul-odor. Abdomen soft and nontender. No bruising or skin lesions. MUSCULOSKELETAL: Frail extremities and poor strength but no spasticity or asymmetric/excessive weakness noted EXTREMITIES: Cool legs and feet B/L with 1+ pitting edema to the mid-love. Pulses 1/2 in LE B/L. Upper extremities are better perfused. No gross asymmetry in LE diameter NEUROLOGICAL: No FND appreciated. Patient is alert and aware X3 but does require repetitive questioning to get appropriate answers. PSYCHIATRIC: Pt appears to have flat affect with minimal range. She does seem agreeably to treatment. LABORATORY DATA: See below. IMAGING: Abdomen/Pelvis CT (05/27/2020): No official read available CXR (05/27/2020): No official read available MICROBIOLOGY: Please see below. ASSESSMENT: PLAN: 1.Right pelvic abscess: -CT shows suspected right pelvic abscess -IR has been consulted regarding drain placement and their assistance is greatly appreciated -Surgery was also consulted, Dr. Walden, who felt she was a poor surgical candidate -1 dose of Zosyn was given in the ER and she has now been switched to Meropenem 1gm IV day #1 -Serial CBC w/ diff daily -Due to recurrent infections a Ig panel was ordered to r/o CVID and is normal -This may be related to her recent admission for another intraabdominal abscess (March 2020), possible progression from microabscess formation with her original perforation 2.Sepsis: -Leukocytosis of 13.6 + BP 91/61 + HR 114 w/ likely intra-abdominal abscess source -Lactate 3.3, will continue to trend q4h until trending down -1 dose of Zosyn was given in the ER and she has now been switched to Meropenem 1gm IV day#1 -BP support with NS has been initiated, she is fluid responsive, levophed also ordered for pressor supper if needed, femoral line in place. 3.Hypoglycemia: -Likely due to poor appetite -Will place on hypoglycemic protocol and q6h FSBS checks, may discontinue if her hypoglycemia resolves 4.Chronic A.Fib -Patient is current rate controlled on atenolol 50 mg -Anticoagulated on Apixaban 5.Dementia with mood disorder: -Continue Mirtazapine -Continue Sertraline HCl 6.Hypoalbuminemia -Albumin 1.9, likely related to poor nutritional status -consider albumin supplementation if she remains hypotensive to help with intravascular repletion, especially consider her LE edema 7. Mild, asymptomatic anemia: -Patient had GI bleed in last admission (March 2020) -Test for fecal occult stool, if positive hold eliquis -Monitor with serial H&H and transfuse if Hbg <7 or symptoms develop -continue Ferrous Sulfate 325 mg PO BID 8. Hypothyroidism - continue levothyroxine 50mcg DVT Prophylaxis: Anticoagulated on Apixaban, teds and scds for mechanical GI Prophylaxis: home PPI continued 20mg bid Disposition: admitted to ICU pending clinical improvement and IR placement of drain Attending attestation: Patient independently evaluated, agree with resident's plan. Vital Signs Vital Signs Date Time Temp Pulse Resp B/P (MAP) Pulse Ox O2 Delivery O2 Flow Rate FiO2 05/27/20 17:21 97.5 05/27/20 16:46 127/93 (104) 05/27/20 16:37 88 16 98 Room Air Laboratory Data Labs 24H Laboratory Tests 2 05/27/20 15:58: Neutrophils (%) (Auto) , Nucleated Red Blood Cells % (auto) 0.0, Neutrophils 83H, Band Neutrophils 6, Lymphocytes (Manual) 3L, Monocytes (Manual) 7H, Metamyelocytes 1H, Poikilocytosis 1+, Chris Cells 1+, Platelet Estimate NORMAL, Prothrombin Time 28.1H, Prothromb Time International Ratio 2.65, Activated Partial Thromboplast Time 39.5H, Blood Gas Bicarbonate Standard 16.5, Venous Blood pH 7.318L, Venous Blood Partial Pressure CO2 30.0L, Venous Blood Partial Pressure O2 64.9H, Venous Blood Total Carbon Dioxide 16.0L, Venous Blood HCO3 15.0L, Venous Blood Oxygen Saturation 90.2H, Venous Blood Base Excess -9.8L, Anion Gap 13, Glomerular Filtration Rate > 60.0, Lactic Acid Level 3.3*H, Calcium Level 8.0L, Total Bilirubin 0.8, Direct Bilirubin 0.4H, Aspartate Amino Transf (AST/SGOT) 23, Alanine Aminotransferase (ALT/SGPT) 17, Alkaline Phosphatase 71, Total Creatine Kinase 23L, Creatine Kinase MB 1.2, Creatine Kinase MB Relative Index 5.22H, Troponin I < 0.02, C-Reactive Protein, Quantitative 9.64H, Total Protein 5.4L, Albumin 1.8L, Albumin/Globulin Ratio 0.5L, Amylase Level 28, Immunoglobulin A 282.0, Immunoglobulin G 1360, Immunoglobulin M 48.3 05/27/20 16:02: POC Glucose (Misc Panel) 67L, POC Sodium (Misc Panel) 134L, POC Potassium (Misc Panel) 4.4, POC Chloride (Misc Panel) 105, POC Total CO2 (Misc Panel) 16.0L, POC Blood Urea Nitrogen (Misc Panel 22, POC Ionized Calcium (Misc Panel) 4.3L, POC Creatinine (Misc Panel) 0.7, POC Hematocrit (Misc Panel) 34.0L CBC/BMP Laboratory Tests 05/27/20 15:58 Microbiology Microbiology 05/27/20 Blood Culture, Received Pending 05/27/20 Blood Culture, Received Pending Home Medications Scheduled Acetaminophen (Acetaminophen) 325 Mg Tablet, 650 MG PO DAILY Apixaban (Eliquis) 5 Mg Tablet, 5 MG PO BID Atenolol (Atenolol) 50 Mg Tablet, 50 MG PO DAILY HOLD FOR SBP <110 HR <60 Ferrous Sulfate (Ferrous Sulfate) 325 Mg Tablet, 325 MG PO BID Levothyroxine Sodium (Levothyroxine Sodium) 50 Mcg Tab, 50 MCG PO DAILY Magnesium Chloride (Mag64) 64 Mg Tablet.dr, 64 MG PO BID Mirtazapine (Remeron) 15 Mg Tablet, 15 MG PO QHS Multivitamins (Thera M Plus Tablet) 1 Tab Tab, 1 TAB PO DAILY Omeprazole (Omeprazole) 20 Mg Cap, 20 MG PO BID Sertraline HCl (Sertraline HCl) 50 Mg Tablet, 50 MG PO QHS Scheduled PRN Acetaminophen (Tylenol) 325 Mg Tablet, 650 MG PO QID PRN for PAIN Acetaminophen (Feverall) 650 Mg Supp.rect, 650 MG KY Q4H PRN for PAIN / FEVER Bisacodyl (Dulcolax) 10 Mg Supp.rect, 10 MG [place] DAILY PRN for CONSTIPATION Dextrose (Glucose) 4 Gm Tab.chew, 1 CHW PO for LOW BLOOD SUGAR Magnesium Hydroxide (Milk of Magnesia) 400 Mg/5 Ml Oral.susp, 2,400 MG PO DAILY PRN for CONSTIPATION Sodium Phosphate,Wilcox-Dibasic (Fleet Enema) 133 Ml Enema, 1 LI [place] DAILY PRN for CONSTIPATION Allergies Coded Allergies: No Known Allergies (Unverified , 05/17/20) A-FIB/CHADSVASC A-FIB History Current/History of A-Fib/PAF?: Yes Current PO Anticoag Therapy: Yes GME ATTESTATION GME ATTESTATION My faculty preceptor for this patient encounter was physically present during the encounter and was fully available. All aspects of the patient interview, examination, medical decision making process, and medical care plan development were reviewed and approved by the faculty preceptor. The faculty preceptor is aware and concurs with the plan as stated in the body of this note and will attest to such by his/her cosignature. ATTENDING NOTE I have independendently interviewed and examined the patient at the bedside, and agree with the documentation above. The patient and her daughter, HCP, agree with the current management plan. addendum: PROTEIN CALORIE MALNUTRITION BMI 20.7 -hypoalbuminemia due to poor nutritional status with albumin 1.8. HARPER QUEZADA OMS-3 May 27, 2020 18:45 LIZETTE MATAMOROS D.O. May 27, 2020 18:57 JEREMIE HEREDIA MD May 28, 2020 14:41 SHANNA CHARLTON MD May 29, 2020 10:37
[2020-05-27 19:51] VITALS: BP 103/69
[2020-05-27 20:00] VITALS: BP 97/68
[2020-05-27] MEDS ORDERED: NOREPINEPHRINE BITARTRATE 16 MG in D5W 484 ML IV SCH (20:00)
[2020-05-27 21:00] VITALS: BP 88/53
[2020-05-27] MEDS ORDERED: MIRTAZAPINE 15 MG TAB PO SCH (21:00)
[2020-05-27] MEDS ORDERED: SERTRALINE HCL 50 MG TAB PO SCH (21:00)
[2020-05-27] MEDS: APIXABAN 5 MG TAB (ELIQUIS) PO SCH (21:33)
[2020-05-27] MEDS: FERROUS SULFATE 325MG TAB PO SCH (21:33)
[2020-05-27] MEDS: MEROPENEM INJ 1 GM in IV 1 EA IV SCH (21:33)
[2020-05-27] MEDS: OMEPRAZOLE 20 MG CAP PO SCH (21:33)
[2020-05-27] MEDS: MAGNESIUM CHLORIDE 64 MG TABCR (SLO MAG) PO SCH (21:37)
[2020-05-27 22:00] VITALS: BP 92/67
[2020-05-27 23:00] VITALS: BP 106/56
--- NOTE | 2020-05-27 23:43 | REP ---
CHEST, SINGLE VIEW: Single view of the chest is performed and compared to prior study of 05/17/2020. There is no acute infiltrate. Heart is slightly enlarged. There is a hiatal hernia. Mediastinal silhouette is unchanged. IMPRESSION: No acute pulmonary disease. Electronically Signed by Beau Ruiz MD 05/30/2020 10:39 P
[2020-05-28] VITALS (10 sets, daily range): BP systolic 89–106; BP diastolic 52–71
[2020-05-28] MEDS: D5W/0.45% SODIUM CHLORIDE 1,000 ML IV SCH ×2 (00:01→08:30)
--- NOTE | 2020-05-28 04:04 | REP ---
REASON FOR EXAM: Sepsis. COMPARISON EXAM: 05/17/2020 CONTRAST: 100 mL Isovue-370. The lung bases are clear and unchanged. There is a hiatal hernia, status quo. The gallbladder is slightly enlarged and increased in size from the prior exam. The liver, spleen, pancreas, adrenal glands, and kidneys are unchanged. The abdominal aorta and para-aortic regions are unchanged. Limited evaluation of the bowel loops and their mesenteries shows them to be unchanged. There is a moderate amount of free fluid in the pelvis, which is unchanged. Once again, there is spray artifact arising from a right hip prosthesis, obscuring multiple pelvic images. Once again, there is a surgical drainage tube in the right lower quadrant. No abnormal adenopathy has developed in the abdomen or pelvis. In the region of the surgical drainage tube, there appears to be an air-fluid level, but this abuts noncontrast opacified bowel and cannot be definitively delineated from it. There is no change in the osseous structures. IMPRESSION: 1. Marked exam limitations. 2. Surgical drainage tube, as described above. 3. Possible right lower quadrant air-fluid level indiscernible from bowel within the region of the drainage tube. 4. Other findings and chronic changes as described above. Electronically Signed by Geovany Navarrete DO 05/28/2020 09:15 A
[2020-05-28 05:23] LABS: HEMATOCRIT 32.3 % (36.0-47.0); HEMOGLOBIN 10.8 g/dl (12.0-15.5); MEAN CORPUSCULAR HEMOGLOBIN 29.9 pg (27.0-33.0); MEAN CORPUSCULAR HGB CONC 33.4 g/dl (32.0-36.5); MEAN CORPUSCULAR VOLUME 89.5 fl (80.0-96.0); PLATELET COUNT, AUTOMATED 347 10^3/uL (150-450); RED BLOOD COUNT 3.61 10^6/uL (4.00-5.40); WHITE BLOOD COUNT 17.7 10^3/uL (4.0-10.0)
[2020-05-28 05:33] LABS: INR 2.84; PROTHROMBIN TIME 29.7 SECONDS (11.8-14.0)
[2020-05-28 05:34] LABS: PARTIAL THROMBOPLASTIN TIME 46.3 SECONDS (25.0-38.4)
[2020-05-28] MEDS: MEROPENEM INJ 1 GM in IV 1 EA IV SCH ×2 (05:56→14:10)
[2020-05-28 06:00] LABS: BLOOD UREA NITROGEN 25 MG/DL (7-18); CARBON DIOXIDE LEVEL 14 MEQ/L (21-32); CHLORIDE LEVEL 106 MEQ/L (98-107); CREATININE FOR GFR 0.79 MG/DL (0.55-1.30); GLOMERULAR FILTRATION RATE > 60.0 (>39); GLUCOSE, FASTING 129 MG/DL (70-100); POTASSIUM SERUM 4.4 MEQ/L (3.5-5.1); SODIUM LEVEL 134 MEQ/L (136-145)
[2020-05-28] MEDS ORDERED: LEVOTHYROXINE 50MCG TABLET (0.05MG) PO SCH (06:00)
[2020-05-28 06:06] LABS: LYMPHOCYTES 7 % (16-44); MONOCYTES 7 % (0-5); NEUTROPHILS 83 % (28-66); PLATELET ESTIMATE NORMAL (NORMAL)
[2020-05-28 06:07] LABS: ANISOCYTOSIS 2+
[2020-05-28] MEDS: MAGNESIUM CHLORIDE 64 MG TABCR (SLO MAG) PO SCH (08:31)
[2020-05-28] MEDS: APIXABAN 5 MG TAB (ELIQUIS) PO SCH (08:31)
[2020-05-28] MEDS: OMEPRAZOLE 20 MG CAP PO SCH (08:31)
[2020-05-28] MEDS: FERROUS SULFATE 325MG TAB PO SCH (08:31)
[2020-05-28] MEDS ORDERED: atenoloL 50 MG TAB PO SCH (09:00)
[2020-05-28] MEDS ORDERED: MULTIVITAMINS/MINERALS THERAP 1 TAB PO SCH (09:00)
--- NOTE | 2020-05-28 10:12 | ECGEPIP ---
[facility] - ED Test Date: 2020-05-27 Pat Name: LASHAWN MCDANIELS Department: Room: - Gender: Female Director Biomedical Engineering: donna : 1940 Requested By: Agnes Hernandez Order Number: [id number] Reading MD: Agnes Hernandez Measurements Intervals [place] Rate: 96 P: ME: 0 QRS: -10 QRSD: 94 T: 171 QT: 342 QTc: 434 Interpretive Statements ATRIAL FIBRILLATION LOW QRS VOLTAGE IN EXTREMITY LEADS POSSIBLE ANTERIOR KS SIMILAR 05/17/20 Electronically Signed on 05-28-2020 10:11:51 EDT by Agnes Hernandez
[2020-05-28] MEDS ORDERED: SODIUM BICARBONATE 150 MEQ in STERILE WATER LITER BAG 1,000 ML IV SCH (12:00)
--- NOTE | 2020-05-28 15:12 | IPNPDOC ---
Date Seen The patient was seen on 05/28/20. Progress Note Discussed with Daughter, Sarah Odom, that the patient has a very poor overall prognosis due to significant co-morbid conditions, frail condition with little reserve for recovery despite attempts to improve her protein calorie malnutrition and failure to thrive. -since the patient has refused surgery, her condition will most likely cause prolonged suffering despite supportive care. -Daughter and son are open to comfort measures only, as they see their mother suffer with no definitive cure since the patient has refused surgery, and even with surgery, she will have a prolonged and uncertain recovery period. -Her children will visit later today to discuss comfort measures with the patient. -Per my conversation with the patient, she noded "NO " when I asked about surgery and colonoscopy. 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 VS, I&O, 24H, Fishbone Vital Signs/I&O Vital Signs Date Time Temp Pulse Resp B/P (MAP) Pulse Ox O2 Delivery O2 Flow Rate FiO2 05/28/20 12:52 90 93/71 (78) 99 Room Air 05/28/20 10:00 18 05/28/20 08:00 97.4 I&O- Last 24 Hours up to 6 AM 05/28/20 06:00 Intake Total 3290 ml Output Total 55 ml Balance 3235 ml Laboratory Data 24H LABS Laboratory Tests 2 05/27/20 15:58: Neutrophils (%) (Auto) , Nucleated Red Blood Cells % (auto) 0.0, Neutrophils 83H, Band Neutrophils 6, Lymphocytes (Manual) 3L, Monocytes (Manual) 7H, Metamyelocytes 1H, Poikilocytosis 1+, Chris Cells 1+, Platelet Estimate NORMAL, Prothrombin Time 28.1H, Prothromb Time International Ratio 2.65, Activated Partial Thromboplast Time 39.5H, Blood Gas Bicarbonate Standard 16.5, Venous Blood pH 7.318L, Venous Blood Partial Pressure CO2 30.0L, Venous Blood Partial Pressure O2 64.9H, Venous Blood Total Carbon Dioxide 16.0L, Venous Blood HCO3 15.0L, Venous Blood Oxygen Saturation 90.2H, Venous Blood Base Excess -9.8L, Anion Gap 13, Glomerular Filtration Rate > 60.0, Lactic Acid Level 3.3*H, Calcium Level 8.0L, Total Bilirubin 0.8, Direct Bilirubin 0.4H, Aspartate Amino Transf (AST/SGOT) 23, Alanine Aminotransferase (ALT/SGPT) 17, Alkaline Phosphatase 71, Total Creatine Kinase 23L, Creatine Kinase MB 1.2, Creatine Kinase MB Relative Index 5.22H, Troponin I < 0.02, C-Reactive Protein, Quantitative 9.64H, Total Protein 5.4L, Albumin 1.8L, Albumin/Globulin Ratio 0.5L, Amylase Level 28, Immunoglobulin A 282.0, Immunoglobulin G 1360, Immunoglobulin M 48.3 05/27/20 16:02: POC Glucose (Misc Panel) 67L, POC Sodium (Misc Panel) 134L, POC Potassium (Misc Panel) 4.4, POC Chloride (Misc Panel) 105, POC Total CO2 (Misc Panel) 16.0L, POC Blood Urea Nitrogen (Misc Panel 22, POC Ionized Calcium (Misc Panel) 4.3L, POC Creatinine (Misc Panel) 0.7, POC Hematocrit (Misc Panel) 34.0L 05/27/20 21:35: Lactic Acid Followup at 4 Hours 2.3*H 05/28/20 00:04: Bedside Glucose (Misc Panel) 67L 05/28/20 05:10: Neutrophils (%) (Auto) , Nucleated Red Blood Cells % (auto) 0.0, Neutrophils 83H, Band Neutrophils 3, Lymphocytes (Manual) 7L, Monocytes (Manual) 7H, Anisocytosis 2+, Platelet Estimate NORMAL, Prothrombin Time 29.7H, Prothromb Time International Ratio 2.84, Activated Partial Thromboplast Time 46.3H, Anion Gap 14, Glomerular Filtration Rate > 60.0, Calcium Level 8.0L 05/28/20 11:58: Bedside Glucose (Misc Panel) 166H CBC/BMP Laboratory Tests 05/27/20 15:58 05/28/20 05:10 Microbiology Microbiology 05/27/20 Stool Occult Blood (DAJA) - Final, Complete 05/27/20 Blood Culture, Received Pending 05/27/20 Blood Culture, Received Pending JEREMIE HEREDIA MD May 28, 2020 15:12
[2020-05-28] MEDS ORDERED: D5W/0.45% SODIUM CHLORIDE 1,000 ML IV SCH (18:15)
[2020-05-28] MEDS ORDERED: MORPHINE 10MG/0.5ML ORAL CONCENTRATE SOLUTION U/D SL PRN (18:15)
[2020-05-28] MEDS ORDERED: MORPHINE 2 MG/ML 1ML VIAL (J2270) IV PRN (18:15)
[2020-05-28] MEDS ORDERED: LORazepam 1 MG TAB PO PRN (18:15)
[2020-05-28] MEDS ORDERED: ATROPINE SULFATE 1% OP SOLN 2 ML BTL SL PRN (18:15)
[2020-05-28] MEDS ORDERED: LORazepam 2 MG/ML VIAL IV PRN (18:15)
[2020-05-28] MEDS ORDERED: ONDANSETRON 4MG/2ML VIAL IV PRN (18:15)
[2020-05-28] MEDS ORDERED: SCOPOLAMINE 1MG TRANSDERMAL PATCH TOP PRN (18:15)
--- NOTE | 2020-05-28 22:03 | IPN ---
DATE: 05/28/2020 Patient did not require any Levophed drip last evening. Currently maintained with mean arterial pressure of over 65 overnight. 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 She remained afebrile. Complains of pain everywhere. She is moaning in pain, has her eyes closed. Daughter is open to comfort measures only. Currently with surgical recommendations for drainage. She is not a surgical candidate due to comorbid conditions and advanced age. Currently broadly covered with intravenous meropenem and IV fluids for now. PHYSICAL EXAMINATION: Temperature 97.4, pulse 94, respiratory rate 18, blood pressure 94/68, 99% on room air. Generally, patient is frail, elderly, in no respiratory distress but her mouth open and moaning at the bedside. The patient is awake, alert to herself only. She has bitemporal wasting, dry mucous membranes, poor dentition. No jugular venous distention (JVD), thyromegaly. Lungs are diminished but clear. Heart: S1, S2, irregularly irregular. Abdomen is soft. Patient has a left upper abdominal drainage, 50 mL from overnight. She has feces, Martin catheter in place. White count 17.7, hemoglobin 10, hematocrit 32, platelet count 347. Sodium 134, potassium 4.4, chloride 106, bicarbonate 14, BUN 25, creatinine 0.79, glucose of 129, lactic acid of 2.3. Laboratory data reviewed. Right femoral catheter in place. 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 ACTIVE ISSUES ARE FOLLOWS: Sepsis secondary to pelvic abscess. Patient is to have IR drainage placed. Per surgery, patient would not tolerate sigmoid colectomy with colostomy. For now, IV antibiotics and drainage catheter to be placed by interventional radiology. Dr. Walden has been consulted as well as Dr. Silva. She is currently on IV meropenem. Copious amounts of stool discharge. Hemoccult stool was positive. Await recommendations from infectious disease. 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 Patient is not going to tolerate a sigmoidectomy with colostomy and currently is on conservative management with IV antibiotics and drainage placement. Patient remains with worsening white count, on meropenem. Metabolic acidosis secondary to sepsis with lactic acidosis. Patient is not tolerating a significant oral intake. Therefore, will start on a bicarbonate drip for now. Protein-calorie malnutrition. Albumin of 1.8 and body mass index (BMI) of 20. Waste Handling Technician consult. Patient is extremely cachectic and will benefit from supervisor cab consult versus comfort measures only. Chronic atrial fibrillation. Due to low blood pressure and severe sepsis. Her atenolol has been held for now. Rate appears to be controlled. Hypothyroidism. On chronic Synthroid. Depression. On Zoloft. MTDD
--- NOTE | 2020-05-29 08:46 | CR ---
DATE OF CONSULTATION: Asked to consult by Dr. Ruiz for evaluation of and followup on intra-abdominal abscess and antibiotic management. HISTORY OF PRESENT ILLNESS: Mrs. Zayas is a 80-year-old female with a history of diverticular disease and perforated viscus since March 16. The patient has had multiple intra- abdominal abscess that have been drained on 03/17/2020. Intra-abdominal abscess culture was positive for Actinomyces bacteroides. Escherichia (E) coli and Klebsiella. The patient was discharged to the longterm after that hospitalization was readmitted on April 07 again with another intra-abdominal collection that was cultured that was positive for E-coli, Streptococcus mitis bacteroides and the patient had E-coli bacteremia. During that hospitalization, she received intravenous (IV) Rocephin and Flagyl for a total of 14 days and then switched to cefdinir and Flagyl on April 23 at the longterm to finish the course for a total of 6 weeks on May 20. Since then, the patient has had multiple other complications. She was seen in the emergency room on May 17 with what sounded like seizure-like activity. She had a CT abdomen that showed air in the urinary bladder that was concerning for a fistula with worsening abscess in her abdomen with 9.2 x 4.5 x 3.9 cm abscess and a thickened rectosigmoid consistent with diverticulitis, chronic cholecystitis. The patient continues complaining of abdominal pain. She has had some rectal bleeding. 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 The patient is not a surgical candidate. She was seen by Dr. Walden and there is discussion of COMFORT MEASURES ONLY. She has received IV meropenem. The patient has had no fever, but she is slightly hypotensive and that is why she has been placed in the ICU. PAST MEDICAL HISTORY: Significant for perforated diverticula with secondary intra-abdominal abscesses 03/17/2020, has been on antibiotics since then, status post drainage procedure with a drain still in place draining foul-smelling what looks like stools. Hyponatremia, hypokalemia, atrial fibrillation, right-sided hydronephrosis from abscess, hypothyroidism, history of CVA , gastroesophageal reflux disease, hyperlipidemia, dementia. PAST SURGICAL HISTORY: Carpal tunnel release, rotator cuff repair, right total hip arthroplasty, (C) section. SOCIAL HISTORY: She is a . She is currently at [facility]. Her daughter is her healthcare proxy. She denies alcohol or drug use. ALLERGIES: NO KNOWN DRUG ALLERGIES. MEDICATIONS: - sodium bicarbonate IV - multivitamin 1 tablet by mouth daily - levothyroxine 50 mcg daily - meropenem 1 gram IV every 8 hours - ferrous sulfate 325 mg twice a day - Slow-Mag 64 mg twice a day - mirtazapine 15 mg by mouth at bedtime - omeprazole 20 mg by mouth twice a day - sertraline 50 mg by mouth at bedtime - apixaban 5 mg by mouth twice a day - Tylenol as needed PHYSICAL EXAMINATION: She is a frail, elderly female. It looks like she lost weight from previous admission. Heart: Normal S1, S2. No murmurs appreciated. Lungs: Clear. No wheezes or rhonchi. Diminished at the bases. Abdomen: Diffusely tender especially in the epigastric area. Stools foul-smelling, dark brown color with jose maria streaks. Right upper quadrant drain with brown stool-looking drainage. Urine pink colored on the bed. Incontinence. Martin catheter was pulled by the patient. Extremities: No clubbing, cyanosis or edema. Oropharynx: Dry mucosa with poor oral care. Patient alert, oriented times two. She responds appropriately, states she is in pain mostly in her abdomen. Moves all extremities. LABORATORY DATA: White count is 17.7, increased from 13.6, hemoglobin 10.8, hematocrit 32.3, platelets 347, 83% neutrophils, 7% lymphocytes, 7% monocytes. Sodium 134, potassium 4.4, chloride 106, bicarbonate 14, BUN 25, creatinine 0.79, glucose 129, lactic acid 2.3, calcium 8, AST 23, ALT 17, alkaline phosphatase 71. Stool occult positive. Blood cultures pending. CT abdomen was of poor quality, markedly limited. There is right lower quadrant air-fluid level discernible in the region of the drainage tube. Not very helpful CT scan but CT of the abdomen was reviewed from May 17 during the ER visit, which shows significant worsening of the abscess, fistula in the bladder probably and again rectosigmoid consistent with colitis and diverticulitis. IMPRESSION: This is a 80-year-old female who has had a perforated viscus since March 17 with multiple intra-abdominal abscesses, has had an abdominal drain for over a month, has had chronic antibiotics for over 2 months and now has evidence of gastrointestinal (GI) bleeding with stool coming out of her bladder. Antibiotics will not fix the problem. She is not a surgical candidate. At this point, I do not foresee any improvement in her medical health and the patient's daughter has been discussing comfort measures and I agree fully with that. She has failed IV antibiotics. PLAN: Suggest comfort measures. Continue IV meropenem until this decision is made. SALAS
--- NOTE | 2020-05-29 13:48 | IPNPDOC ---
Text Note Date of Service The patient was seen on 05/29/20. NOTE Hospitalist Progress Note Subjective: Patient agreed to comfort measures only last night. Antibiotics and other medical drugs/measures were discontinued. Orders for pain control and comfort were already put in last night. The patient does have a PICC line in place, we will use this for all IV medications for ease of administration and patient comfort. She does not have any additional requests at this time. Objective: Physical examination was not performed as this would not change the treatment plan. 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 NICOLE MANRIQUEZ DO May 29, 2020 13:48
[2020-05-29] MEDS: SODIUM CHLORIDE 0.9% INJ 10 ML SYR IV SCH (17:39)
[2020-05-30] MEDS: SODIUM CHLORIDE 0.9% INJ 10 ML SYR IV SCH ×2 (05:08→17:18)
--- NOTE | 2020-05-30 18:37 | IPNPDOC ---
Text Note Date of Service The patient was seen on 05/30/20. NOTE Subjective: Patient seen at bedside. 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 Plan: continue with comfort measures only. #Septick shock - now DOUGH BRAKER - lactic acid was 3.3 in the setting of sepsis, hypotensive previously requiring presser support #severe protein calorie malnutrition - albumin 1.8 - weight 54.7 kg VS,Fishbone, I+O VS, Fishbone, I+O Vital Signs Date Time Temp Pulse Resp B/P (MAP) Pulse Ox O2 Delivery O2 Flow Rate FiO2 05/28/20 18:00 97.4 88 16 106/61 (76) 95 Room Air I&O- Last 24 Hours up to 6 AM 05/30/20 06:00 Intake Total 120 ml Output Total 0 ml Balance 120 ml SHANNA CHARLTON MD May 30, 2020 18:37
[2020-05-30] MEDS ORDERED: ACETAMINOPHEN 650 MG SUPP PR PRN (21:15)
[2020-05-30] MEDS ORDERED: MIRALAX *UNIT DOSE* 17GM PACKET PO PRN (21:15)
[2020-05-31] MEDS: SODIUM CHLORIDE 0.9% INJ 10 ML SYR IV SCH ×2 (05:27→17:51)
[2020-05-31] MEDS: SODIUM CHLORIDE 0.9% INJ 10 ML SYR IV PRN (05:28)
[2020-05-31 06:00] VITALS: BP 107/65
[2020-05-31] MEDS: SENOKOT S TAB PO SCH (09:00)
[2020-05-31 10:00] VITALS: BP 128/76
[2020-06-01 06:00] VITALS: BP 109/76
[2020-06-01] MEDS: SODIUM CHLORIDE 0.9% INJ 10 ML SYR IV SCH (06:11)
[2020-06-01] MEDS: SODIUM CHLORIDE 0.9% INJ 10 ML SYR IV PRN (06:12)
[2020-06-01] MEDS: SENOKOT S TAB PO SCH (08:56)
[2020-06-01] MEDS ORDERED: HYOS125TA PO (12:17)
[2020-06-01] MEDS ORDERED: ATIV1TAB10 PO (12:17)
[2020-06-01] MEDS ORDERED: MORP20SO3 PO (12:17)
--- NOTE | 2020-06-01 15:34 | DS.PDOC ---
Discharge Summary General Date of Admission May 27, 2020 at 17:04 Date of Discharge 06/01/20 Discharge Summary PROCEDURES PERFORMED DURING STAY: [None]. ADMITTING DIAGNOSES: 1. R. pelvic abscess 2. Sepsis 3. Hypoglycemia 4. chronic Afib 5. Dementia with mood disorder 6. Hypoalbuminemia 7. asymptomatic anemia 8. Hypothyroidism DISCHARGE DIAGNOSES: 1. R. pelvic abscess 2. Sepsis 3. Hypoglycemia 4. chronic Afib 5. Dementia with mood disorder 6. Hypoalbuminemia 7. asymptomatic anemia 8. Hypothyroidism COMPLICATIONS/CHIEF COMPLAINT: Pelvic Abscess In Female. HISTORY OF PRESENT ILLNESS: "Ms. Zayas presents to [facility] ER from [facility] largely because staff at the [facility] noticed her abscess drain placed on her previous admission (Apr 07 2020) was draining dark, foul smelling fluid. EMS brought in the patient and received a poor history from [facility]. Additionally she complains of LLQ abdominal pain of a few weeks duration. She states this pain is sharp and sometimes radiates into the mid-abdomen. She rates this pain at a 5/10 consta ntly and and denies having a clear inciting event. She denies that eating or defecating make the pain worse. She also reports occasionally seeing bloody streaks on her toilet paper in the recent weeks as well. She also reports some pink colored urine of unknown duration. She denies any recent fatigue, fevers, sweats/chills, weight loss, chest pain, SOB, recent illness, diarrhea or change in stool caliber. Finally it should be noted that the patient has possible cognitive/memory impairment, making it difficult to assess the validity of her history. Much of the remaining history was obtained by chart review." HOSPITAL COURSE: Patient's course of hospitalization for sepsis noted to be hypotensive requiring levophed support and complains of diffuse pain. 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 Patient is to be discharged to [facility] for comfort measures in the facility. DISCHARGE MEDICATIONS: Please see below. ALLERGIES: Please see below. PHYSICAL EXAMINATION ON DISCHARGE: VITAL SIGNS: Please see below. General: Alert, malaise Eyes: Normal sclera, EOMI HENT: Atraumatic Cardiovascular: Normal rate Pulmonary: no wheezing GI: Soft, nondistended Skin: Warm and dry LABORATORY DATA: Please see below. IMAGING: CXR- No acute pulmonary disease. Abdomen/pelvis CT- 1. Marked exam limitations. 2. Surgical drainage tube, as described above. 3. Possible right lower quadrant air-fluid level indiscernible from bowel within PROGNOSIS: poor ACTIVITY: [As tolerated]. DIET: regular DISCHARGE PLAN: Continue comfort care measures at [facility] DISPOSITION: [facility]. DISCHARGE INSTRUCTIONS: Continue comfort care measures at [facility] ITEMS TO FOLLOWUP ON ON OUTPATIENT: None DISCHARGE CONDITION: [Fair]. TIME SPENT ON DISCHARGE: 32 minutes. Vital Signs/I&Os Vital Signs Date Time Temp Pulse Resp B/P (MAP) Pulse Ox O2 Delivery O2 Flow Rate FiO2 06/01/20 06:00 97.1 70 15 109/76 (87) 95 Room Air I&O- Last 24 Hours up to 6 AM 06/01/20 06:00 Intake Total 210 ml Balance 210 ml Microbiology Microbiology 06/01/20 Respiratory Virus Panel (PCR) (DAJA) - Final, Complete 05/27/20 Stool Occult Blood (DAJA) - Final, Complete 05/27/20 Blood Culture - Preliminary, Resulted No Growth after 72 hours. All specime... 05/27/20 Blood Culture - Preliminary, Resulted No Growth after 72 hours. All specime... Discharge Medications Scheduled Acetaminophen (Acetaminophen) 325 Mg Tablet, 650 MG PO DAILY, (Reported) Scheduled PRN Acetaminophen (Tylenol) 325 Mg Tablet, 650 MG PO QID PRN for PAIN, (Reported) Acetaminophen (Feverall) 650 Mg Supp.rect, 650 MG TX Q4H PRN for PAIN / FEVER, (Reported) Bisacodyl (Dulcolax) 10 Mg Supp.rect, 10 MG TX DAILY PRN for CONSTIPATION, (Reported) Hyoscyamine Sulfate (Hyoscyamine Sulfate) 0.125 Mg Tab.subl, 0.125 MG PO Q4HP PRN for TERMINAL SECRETIONS Use sublingually if unable to swallow Lorazepam (Ativan) 0.5 Mg Tablet, 0.5 MG PO Q4HP PRN for ANXIETY/AGITATION Use sublingually if unable to swallow Magnesium Hydroxide (Milk of Magnesia) 400 Mg/5 Ml Oral.susp, 2,400 MG PO DAILY PRN for CONSTIPATION, (Reported) Morphine Sulfate (Morphine Sulfate) 100 Mg/5 Ml Solution, 0.25-1 ML PO Q2H PRN for PAIN OR DYSPNEA Use sublingually if unable to swallow Allergies Coded Allergies: No Known Allergies (Unverified , 05/17/20) NGUYỄN IHNDS MD Jun 01, 2020 15:34
== END 2020-06-01 14:41 | DRG 871 ==
LOC: EDBD 13:37 → M ED 13:37 → M ED INP 17:04 → ENRESERV 17:15 → M ICU 19:01 → M PCU 05-28 15:19 → M MSPAV 05-28 20:36
PROVIDERS: ADMIT General Practice; ATTEND Student in an Organized Health Care Education/Training Program
DX: A41.9 Sepsis, unspecified organism (principal); R65.21 Severe sepsis with septic shock; K65.1 Peritoneal abscess; E43 Unspecified severe protein-calorie malnutrition; E87.1 Hypo-osmolality and hyponatremia; I48.20 Chronic atrial fibrillation, unspecified; E87.2 Acidosis; N32.1 Vesicointestinal fistula; Q21.1 Atrial septal defect; E87.6 Hypokalemia; E03.9 Hypothyroidism, unspecified; Z51.5 Encounter for palliative care; Z66 Do not resuscitate; K21.9 Gastro-esophageal reflux disease without esophagitis; E78.5 Hyperlipidemia, unspecified; F03.90 Unspecified dementia, unspecified severity, without behavioral disturbance, psychotic disturbance, mood disturbance, and anxiety; Z86.73 Personal history of transient ischemic attack (TIA), and cerebral infarction without residual deficits; Z96.641 Presence of right artificial hip joint; E16.2 Hypoglycemia, unspecified; D64.9 Anemia, unspecified; Z79.01 Long term (current) use of anticoagulants; Z79.899 Other long term (current) drug therapy; Z11.59 Encounter for screening for other viral diseases